=== PATIENT | female | born 1975 | race American Indian/Alaskan Native ===

== ENCOUNTER 2018-02-03 02:19 | Inpatient (IN) | payer OTHER ==
[2018-02-03] MEDS ORDERED: ZOFRAN ODT PO ONE (03:43)
[2018-02-03] MEDS ORDERED: ZOFRAN ODT ONE (03:44)
[2018-02-03 04:36] LABS: Bilirubin,Urine SM (Negative); Blood,Urine NEG (Negative); Color,Urine Amber (Yellow); Mucus,Urine 3+ /HPF
[2018-02-03 04:38] LABS: Hemoglobin 17.1 gm/dl (10.1-14.3)
[2018-02-03 04:39] LABS: Hematocrit 50.6 % (30.3-42.9); Mean Corpuscular HGB Conc 34 % (30-34); Mean Corpuscular Hemoglobin 29 pg (28-32); Mean Corpuscular Volume 84 fl (79-97); Mean Platelet Volume 7.3 fl (6-12); Platelet Count 334 K/mm3 (140-440); Red Cell Distribution Width 13.9 % (13.2-15.2)
[2018-02-03 04:42] LABS: Ictotest,Urine Negative (Negative)
[2018-02-03 05:04] LABS: Albumin 5.6 g/dL (3.9-5); BUN/Creatinine Ratio 19; Blood Urea Nitrogen 17 mg/dL (7-17); Calcium 11.5 mg/dL (8.4-10.2); Hemolysis Index 99; Lipase 16 units/L (13-60)
[2018-02-03 05:20] LABS: Alanine Aminotransferase 24 units/L (7-56)
[2018-02-03 05:22] LABS: Basophils % (Manual) 0 % (0.0-1.8); Eosinophils % (Manual) 0 % (0.0-4.3); RBC Morphology Normal; Total Cells Counted 100
[2018-02-03 05:23] LABS: Platelet Estimate Consistent w Auto
[2018-02-03] MEDS ORDERED: ZOFRAN IV ONE (07:20)
[2018-02-03] MEDS ORDERED: ZOFRAN ONE (07:21)
[2018-02-03] MEDS ORDERED: NACL 0.9% 1000 ML 1,000 ML ONE (07:35)
[2018-02-03] MEDS ORDERED: NACL 0.9% 1000 ML 1,000 ML IV ONE (07:36)
[2018-02-03] MEDS ORDERED: MORPHINE IV ONE ×2 (07:39→11:31)
--- NOTE | 2018-02-03 10:55 | Cat Scan Report ---
CT scan of abdomen and pelvis with IV contrast: History abdominal pain left lower quadrant pain severe pain. Findings: Normal lung bases. No pleural pericardial effusion. Normal liver, spleen and pancreas. Patient status post cholecystectomy. Common bile duct diameter 9 mm. Normal adrenals kidney parenchyma and bladder. No free intraperitoneal fluid or air. No evidence of adenopathy. Normal. There is supra-umbilical midline ventral hernia containing loops of small bowel with dilated multiple loops of small bowel within the abdomen. Normal colon. Impression: Incomplete small bowel obstruction probably related to ventral hernia.
--- NOTE | 2018-02-03 13:06 | Emergency Department Report ---
HPI - General Chief Complaint: Abdominal Pain Time Seen by Provider: 02/03/18 07:39 - HPI HPI: Patient is a 42-year-old -[place] female with history of cholecystectomy , partial hysterectomy, came to the ED with periumbilical area pain. She described the pain as sharp, 10 out of 10, radiating to both sides, without fever or chills or night sweats. She also complained of nausea and vomiting. She has not taking any medications for his symptoms. She denies having prior episode of such pain in the past. ED Past Medical Hx - Past Medical History Previous Medical History?: No Hx Hypertension: No - Surgical History Hx Cholecystectomy: Yes Additional Surgical History: Tubal Ligation and Partial Hysterectomy - Social History Smoking Status: Never Smoker - Medications Home Medications: Home Medications Medication Instructions Recorded Confirmed Last Taken Type No Known Home Medications [No 02/03/18 02/03/18 Unknown History Reported Home Medications] ED Review of Systems ROS: Stated complaint: ABD PAIN Other details as noted in HPI Comment: All other systems reviewed and negative Cardiovascular: denies: chest pain Endocrine: denies: no symptoms reported Gastrointestinal: abdominal pain, nausea, vomiting. denies: diarrhea, constipation Physical Exam - Physical Exam Vital Signs: Vital Signs 02/03/18 02/03/18 02/03/18 02:54 03:38 04:44 Temperature 97.7 F 97.7 F Pulse Rate 65 57 L Respiratory 18 20 Rate Blood Pressure 129/83 129/83 142/83 Blood Pressure [Left] O2 Sat by Pulse 100 100 100 Oximetry 02/03/18 02/03/18 02/03/18 04:50 06:00 07:19 Temperature 97.8 F Pulse Rate 54 L 62 Respiratory 17 16 Rate Blood Pressure 129/75 Blood Pressure 142/83 128/75 [Left] O2 Sat by Pulse 100 94 Oximetry 02/03/18 02/03/18 08:51 11:38 Temperature Pulse Rate 58 L Respiratory 14 18 Rate Blood Pressure Blood Pressure 110/58 104/64 [Left] O2 Sat by Pulse 98 98 Oximetry Physical Exam: - Physical Exam - General Limitations: No Limitations General appearance: alert, in no apparent distress, obese - Head Head exam: Present: atraumatic, normocephalic - Eye Eye exam: Present: normal appearance - ENT ENT exam: Present: mucous membranes moist - Neck Neck exam: Present: normal inspection - Respiratory Respiratory exam: Present: normal lung sounds bilaterally. Absent: respiratory distress - Cardiovascular Cardiovascular Exam: Present: normal rhythm. Absent: systolic murmur, diastolic murmur, rubs, gallop - GI/Abdominal GI/Abdominal exam: Present: soft, normal bowel sounds, does have a small umbilical hernia, has tenderness in periumbilical area, no rebound. - Extremities Exam Extremities exam: Present: normal inspection - Back Exam Back exam: Present: normal inspection - Neurological Exam Neurological exam: Present: alert, oriented X3 - Psychiatric Psychiatric exam: normal affect and mood - Skin Skin exam: Present: warm, dry, intact, normal color. Absent: rash ED Course Vital Signs 02/03/18 02/03/18 02/03/18 02:54 03:38 04:44 Temperature 97.7 F 97.7 F Pulse Rate 65 57 L Respiratory 18 20 Rate Blood Pressure 129/83 129/83 142/83 Blood Pressure [Left] O2 Sat by Pulse 100 100 100 Oximetry 02/03/18 02/03/18 02/03/18 04:50 06:00 07:19 Temperature 97.8 F Pulse Rate 54 L 62 Respiratory 17 16 Rate Blood Pressure 129/75 Blood Pressure 142/83 128/75 [Left] O2 Sat by Pulse 100 94 Oximetry 02/03/18 02/03/18 08:51 11:38 Temperature Pulse Rate 58 L Respiratory 14 18 Rate Blood Pressure Blood Pressure 110/58 104/64 [Left] O2 Sat by Pulse 98 98 Oximetry ED Medical Decision Making - Lab Data Result diagrams: 02/03/18 04:03 02/03/18 04:03 Critical care attestation.: If time is entered above; I have spent that time in minutes in the direct care of this critically ill patient, excluding procedure time. ED Disposition Clinical Impression: Small bowel obstruction Disposition: DC-09 OP ADMIT IP TO THIS HOSP Is pt being admited?: Yes Does the pt Need Aspirin: No Condition: Stable Instructions: Abdominal Pain (ED) Referrals: PRIMARY CARE, [Primary Care Provider] - 3-5 Days
--- NOTE | 2018-02-03 14:11 | History and Physical Report ---
History of Present Illness Chief complaint: My stomach hurts History of present illness: 42 YO Female with ventral hernia presents to ED for evaluation. Pt states that she has experienced pain in her abdomen. Pain is 10/10, periumbilical, radiates to both sides, and is associated with nausea. Pt seen and evaluated in ED and found to have evidence of bowel obstruction on CT scan. Surgical team consulted in ED. NGT placed. Pt admitted to medical floor. No reports of fever, chills, CP , Palpitations, BRBPR, Hematemesis, skin rash, recent ill contacts, ingestion of food/water from new or different sources. Past History Past Medical History: other (ventral hernia.) Past Surgical History: cholecystectomy, hysterectomy, Other (tubal ligation) Social history: Family history: hypertension Medications and Allergies Allergies Allergy/AdvReac Type Severity Reaction Status Date / Time No Known Allergies Allergy Verified 02/03/18 04:14 Home Medications Medication Instructions Recorded Confirmed Last Taken Type No Known Home Medications [No 02/03/18 02/03/18 Unknown History Reported Home Medications] Review of Systems Constitutional: no weight loss, no weight gain, no fever, no chills Ears, nose, mouth and throat: no ear pain, no ear discharge, no tinnitis, no decreased hearing, no nose pain, no nasal congestion Breasts: no change in shape, no swelling Cardiovascular: no chest pain, no orthopnea, no palpitations, no rapid/ irregular heart beat, no edema, no syncope Respiratory: no cough, no cough with sputum, no excessive sputum, no hemoptysis , no shortness of breath Gastrointestinal: abdominal pain, nausea, no vomiting, no diarrhea, no constipation, no BRBPR, no melena, no hematochezia, no early satiety Genitourinary Female: no pelvic pain, no flank pain, no menorrhagia, no dysuria , no urinary frequency, no urgency, no stress incontinence, no post void dribbling Menstruation: no premenarcheal, no post hysterectomy, no ammenorrhea, no ammenorrhea on BC, no period normal Rectal: no pain, no incontinence, no bleeding Musculoskeletal: no neck stiffness, no neck pain, no shooting arm pain, no arm numbness/tingling, no low back pain, no shooting leg pain Integumentary: no rash, no pruritis, no redness, no sores, no wounds, no jaundice Psychiatric: no anxiety, no memory loss, no change in sleep habits, no sleep disturbances, no insomnia, no hypersomnia, no change in appetite Endocrine: no cold intolerance, no heat intolerance, no polyphagia, no excessive thirst, no polydipsia, no polyuria Hematologic/Lymphatic: no easy bruising, no easy bleeding, no lymphadenopathy, no lymphedema Allergic/Immunologic: no urticaria, no allergic rhinitis, no wheezing Exam - Constitutional Vitals: Temp Pulse Resp BP Pulse Ox 97.8 F 60 16 136/84 97 02/03/18 04:50 02/03/18 13:08 02/03/18 13:08 02/03/18 13:08 02/03/18 13:08 General appearance: Absent: no acute distress, mild distress, severe distress - EENT Eyes: Absent: PERRL, EOM intact, irregular pupil ENT: no hearing intact, no clear oral mucosa, no dentition normal - Neck Neck: Absent: supple, normal ROM, rigidity - Respiratory Respiratory effort: normal - Cardiovascular Heart Sounds: Present: S1 & S2. Absent: rub, click - Extremities Extremities: pulses symmetrical, No edema Peripheral Pulses: within normal limits - Abdominal General gastrointestinal: Present: soft, non-tender, non-distended, normal bowel sounds Female genitourinary: Present: normal - Integumentary Integumentary: Present: clear, warm, dry - Musculoskeletal Musculoskeletal: gait normal, strength equal bilaterally - Psychiatric Psychiatric: appropriate mood/affect, intact judgment & insight - Neurologic Neurologic: CNII-XII intact, moves all extremities Results - Labs CBC & Chem 7: 02/03/18 04:03 02/03/18 04:03 Labs: Abnormal lab results 02/03/18 02/03/18 02/03/18 Range/Units 03:52 04:03 04:03 WBC 11.3 H (4.5-11.0) K/mm3 RBC 6.00 H (3.65-5.03) M/mm3 Hgb 17.1 H (10.1-14.3) gm/dl Hct 50.6 H (30.3-42.9) % Lymphocytes % (Manual) 8.0 L (13.4-35.0) % Seg Neutrophils # Man 10.3 H (1.8-7.7) K/mm3 Lymphocytes # (Manual) 0.9 L (1.2-5.4) K/mm3 Sodium 135 L (137-145) mmol/L Chloride 90.6 L (98-107) mmol/L Carbon Dioxide 20 L (22-30) mmol/L Glucose 170 H (65-100) mg/dL POC Glucose (70-105) Calcium 11.5 H (8.4-10.2) mg/dL Total Protein 8.9 H (6.3-8.2) g/dL Albumin 5.6 H (3.9-5) g/dL Ur Specific [place] 1.034 H (1.003-1.030) Urine WBC (Auto) 7.0 H (0.0-6.0) /HPF 02/03/18 Range/Units 07:37 WBC (4.5-11.0) K/mm3 RBC (3.65-5.03) M/mm3 Hgb (10.1-14.3) gm/dl Hct (30.3-42.9) % Lymphocytes % (Manual) (13.4-35.0) % Seg Neutrophils # Man (1.8-7.7) K/mm3 Lymphocytes # (Manual) (1.2-5.4) K/mm3 Sodium (137-145) mmol/L Chloride (98-107) mmol/L Carbon Dioxide (22-30) mmol/L Glucose (65-100) mg/dL POC Glucose 131 H (70-105) Calcium (8.4-10.2) mg/dL Total Protein (6.3-8.2) g/dL Albumin (3.9-5) g/dL Ur Specific [place] (1.003-1.030) Urine WBC (Auto) (0.0-6.0) /HPF Assessment and Plan - Patient Problems (1) Small bowel obstruction Current Visit: Yes Status: Acute Plan to address problem: Surgery consulted in ED, IVF resuscitation, bowel rest, pain control, CT abdomen pelvis, NGT to LWS, pain control (2) DVT prophylaxis Current Visit: Yes Status: Acute Plan to address problem: SCD to BLE while in bed.
[2018-02-03] MEDS ORDERED: PROVENTIL IH PRN (14:12)
[2018-02-03] MEDS ORDERED: TYLENOL PO PRN (14:12)
[2018-02-03] MEDS ORDERED: SODIUM CHLORIDE FLUSH SYRINGE 10 ML IV PRN (14:12)
[2018-02-03] MEDS: MORPHINE IV PRN ×2 (17:15→21:25)
[2018-02-03] MEDS: NACL 0.9% 1000 ML 1,000 ML IV SCH (18:40)
[2018-02-03] MEDS: SODIUM CHLORIDE FLUSH SYRINGE 10 ML IV SCH (21:26)
[2018-02-04] MEDS: NACL 0.9% 1000 ML 1,000 ML IV SCH ×3 (00:05→23:34)
--- NOTE | 2018-02-04 02:07 | Consultation ---
REASON FOR CONSULTATION: Rule out small-bowel obstruction. HISTORY OF PRESENT ILLNESS: The patient is a very pleasant 42-year-old female who presented to the Emergency Room with recent onset of abdominal pain accompanied by nausea and vomiting. She states her pain is moreso in the left lower quadrant. Does say she has had two bowel movements yesterday. PAST MEDICAL HISTORY: Negative. PAST SURGICAL HISTORY: Status post laparoscopic cholecystectomy, tubal ligation, and a hysterectomy. ALLERGIES: No known allergies. MEDICATIONS: No medications, she just takes vitamins. FAMILY HISTORY: Diabetes and hypertension. SOCIAL HISTORY: Occasional ethanol intake. Denies any smoking. REVIEW OF SYSTEMS: Noncontributory. PHYSICAL EXAMINATION: GENERAL: At this time reveals the patient to be awake, alert, and cooperative. NG tube is in place. No acute distress. VITAL SIGNS: Show her to be afebrile with a temperature 97.8, blood pressure is 136/84, pulse is 60, respirations 16. HEENT: Pupils are equal and reactive to light and accommodation. Sclerae are nonicteric. ABDOMEN: Examination of the abdomen reveals the abdomen to be minimally distended and essentially nontender at present. There is tenderness; however, when I palpated the subxiphoid area where a palpable hernia is noted some in the midpoint between the xiphoid and the umbilicus. This does not appear to be at the trocar site. It appears to be a true ventral hernia. Bowel sounds are present. There is no rebound or guarding throughout. LABORATORY DATA: All lab work at present includes a CBC, which shows a white count of 11.3, H and H is 17 and 50. Electrolytes are 2. Electrolytes show low sodium of 135 and low chloride of 90.6. Potassium is 4.5. Glucose is 170. LFTs are essentially normal with a total bilirubin of 0.9, AST is 33, ALT is 24, alkaline phosphatase is 51. A CT scan was done, which I have reviewed with Dr. Rodriguez, the radiologist. CT does show small hernia at the site of my palpation. However, this area does not appear to be a source of any incarceration or obstruction. Dilated small bowel loops are noted, proximal and distal to this area. There might be some incarcerated omentum in the area, but again not the source of obstruction. There is some air noted in the colon. Impression of the CT is that of an incomplete small-bowel obstruction. The official report states it is probably related to ventral hernia, but now after review with Dr. Rodriguez, he agrees probably the ventral hernia is not the site of obstruction. Most likely distal adhesions from previous ELECT[employer]CH[employer] surgery. IMPRESSION: At this time is as above. RECOMMENDATIONS: Recommend to admit the patient. I keep her nothing per mouth, on NG suction and intravenous fluid hydration. We will repeat CBC, amylase, and abdominal series in the morning. We will follow with you. Thank you very much for consultation. JOB# [id number] FP/NTS
[2018-02-04 07:38] LABS: Basophils % (Auto) 0.3 % (0.0-1.8); Eosinophils % (Auto) 0.2 % (0.0-4.3); Hematocrit 42.2 % (30.3-42.9); Hemoglobin 13.8 gm/dl (10.1-14.3); Lymphocytes # (Auto) 1.7 K/mm3 (1.2-5.4); Lymphocytes % (Auto) 19.4 % (13.4-35.0); Mean Corpuscular HGB Conc 33 % (30-34); Mean Corpuscular Hemoglobin 28 pg (28-32); Mean Corpuscular Volume 87 fl (79-97); Monocytes # (Auto) 0.9 K/mm3 (0.0-0.8); Monocytes % (Auto) 10.7 % (0.0-7.3); Platelet Count 256 K/mm3 (140-440); Red Blood Count 4.88 M/mm3 (3.65-5.03); Red Cell Distribution Width 13.9 % (13.2-15.2)
[2018-02-04 07:59] LABS: Alanine Aminotransferase 16 units/L (7-56); Albumin 3.9 g/dL (3.9-5); BUN/Creatinine Ratio 28; Blood Urea Nitrogen 17 mg/dL (7-17); Calcium 8.5 mg/dL (8.4-10.2); Hemolysis Index 1
[2018-02-04] MEDS: MORPHINE IV PRN ×4 (08:51→23:41)
--- NOTE | 2018-02-04 11:55 | Progress Note ---
Assessment and Plan Assessment and plan: Ms. Orellana is a 42 yo woman with a history of ventral hernia who pw severe abd pains/n/v, admitted for sbo. -Suspected SBO: continue ngt, Gen. Surgeon, Dr. Rios is aware. Empiric treat with iv zosyn -Ventral hernia: keep npo, surgery to evaluate -Acidosis: check lactate level -Hyperglycemia, not known to have DM, ?stress related: check a1c -Hyponatremia, dehydration: treat with ivf -Leukocytosis, wbc 11.3, ?reactive: repeat in am -DVT prophylaxis: add sq heparing -GI prophylaxis: added iv protonix -Nutrition: npo for now, check a1c prior to adding d5 solution full code History Interval history: Patient was seen and examined. Follow-up on current diagnosis of abd pains still present. Overnight uneventful. Patient denies any chest pain, shortness breath or severe headaches. Imaging, nursing note, chart, labs and old chart reviewed. Discussed with patient. Hospitalist Physical - Physical exam Narrative exam: GEN: thin, ill appearing NAD, Awake, Alert, Orientated x 3 HEENT: NCAT, EOMI, PERRL, OP with ngt NECK: supple, no adenopathy, no thyromegaly, no JVD CVS/HEART: RRR, normal S1S2, pulses present bilaterally CHEST/LUNGS: CTA B, Symmetrical chest expansion, good air entry bilaterally GI/Abdomen: soft, epigastric tenderness with guarding good bowel sounds, no rebound /Bladder: no suprapubic tenderness, no CVA or paraspinal tenderness EXT/Skin: no c/c/e, no obvious rash MSK: FROM x 4 Neuro: CN 2-12 grossly intact, no new focal deficits Psych: anxious - Constitutional Vitals: Temp Pulse Resp BP Pulse Ox 98.8 F 64 20 129/71 100 02/04/18 07:21 02/04/18 07:21 02/04/18 07:21 02/04/18 07:21 02/04/18 07:21 General appearance: Absent: no acute distress, mild distress, severe distress Results - Labs CBC & Chem 7: 02/04/18 06:42 02/04/18 06:42 Labs: Laboratory Last Values WBC 8.7 K/mm3 (4.5-11.0) 02/04/18 06:42 RBC 4.88 M/mm3 (3.65-5.03) 02/04/18 06:42 Hgb 13.8 gm/dl (10.1-14.3) D 02/04/18 06:42 Hct 42.2 % (30.3-42.9) D 02/04/18 06:42 MCV 87 fl (79-97) 02/04/18 06:42 MCH 28 pg (28-32) 02/04/18 06:42 MCHC 33 % (30-34) 02/04/18 06:42 RDW 13.9 % (13.2-15.2) 02/04/18 06:42 Plt Count 256 K/mm3 (140-440) 02/04/18 06:42 Lymph % (Auto) 19.4 % (13.4-35.0) 02/04/18 06:42 [place] % (Auto) 10.7 % (0.0-7.3) H 02/04/18 06:42 Eos % (Auto) 0.2 % (0.0-4.3) 02/04/18 06:42 Baso % (Auto) 0.3 % (0.0-1.8) 02/04/18 06:42 Lymph # 1.7 K/mm3 (1.2-5.4) 02/04/18 06:42 [place] # 0.9 K/mm3 (0.0-0.8) H 02/04/18 06:42 Eos # 0.0 K/mm3 (0.0-0.4) 02/04/18 06:42 Baso # 0.0 K/mm3 (0.0-0.1) 02/04/18 06:42 Add Manual Diff Complete 02/03/18 04:03 Total Counted 100 02/03/18 04:03 Seg Neutrophils % 69.4 % (40.0-70.0) 02/04/18 06:42 Band Neutrophils % 0 % 02/03/18 04:03 Lymphocytes % (Manual) 8.0 % (13.4-35.0) L 02/03/18 04:03 Reactive Lymphs % (Man) 0 % 02/03/18 04:03 Monocytes % (Manual) 1.0 % (0.0-7.3) 02/03/18 04:03 Eosinophils % (Manual) 0 % (0.0-4.3) 02/03/18 04:03 Basophils % (Manual) 0 % (0.0-1.8) 02/03/18 04:03 Metamyelocytes % 0 % 02/03/18 04:03 Myelocytes % 0 % 02/03/18 04:03 Promyelocytes % 0 % 02/03/18 04:03 Blast Cells % 0 % 02/03/18 04:03 Nucleated RBC % Not Reportable 02/03/18 04:03 Seg Neutrophils # 6.0 K/mm3 (1.8-7.7) 02/04/18 06:42 Seg Neutrophils # Man 10.3 K/mm3 (1.8-7.7) H 02/03/18 04:03 Band Neutrophils # 0.0 K/mm3 02/03/18 04:03 Lymphocytes # (Manual) 0.9 K/mm3 (1.2-5.4) L 02/03/18 04:03 Abs React Lymphs (Man) 0.0 K/mm3 02/03/18 04:03 Monocytes # (Manual) 0.1 K/mm3 (0.0-0.8) 02/03/18 04:03 Eosinophils # (Manual) 0.0 K/mm3 (0.0-0.4) 02/03/18 04:03 Basophils # (Manual) 0.0 K/mm3 (0.0-0.1) 02/03/18 04:03 Metamyelocytes # 0.0 K/mm3 02/03/18 04:03 Myelocytes # 0.0 K/mm3 02/03/18 04:03 Promyelocytes # 0.0 K/mm3 02/03/18 04:03 Blast Cells # 0.0 K/mm3 02/03/18 04:03 WBC Morphology Not Reportable 02/03/18 04:03 Hypersegmented Neuts Not Reportable 02/03/18 04:03 Hyposegmented Neuts Not Reportable 02/03/18 04:03 Hypogranular Neuts Not Reportable 02/03/18 04:03 Smudge Cells Not Reportable 02/03/18 04:03 Toxic Granulation Not Reportable 02/03/18 04:03 Toxic Vacuolation Not Reportable 02/03/18 04:03 Dohle Bodies Not Reportable 02/03/18 04:03 Pelger-Huet Anomaly Not Reportable 02/03/18 04:03 Natasha Rods Not Reportable 02/03/18 04:03 Platelet Estimate Consistent w auto 02/03/18 04:03 Clumped Platelets Not Reportable 02/03/18 04:03 Plt Clumps, EDTA Not Reportable 02/03/18 04:03 Large Platelets Not Reportable 02/03/18 04:03 Giant Platelets Not Reportable 02/03/18 04:03 Platelet Satelliting Not Reportable 02/03/18 04:03 Plt Morphology Comment Not Reportable 02/03/18 04:03 RBC Morphology Normal 02/03/18 04:03 Dimorphic RBCs Not Reportable 02/03/18 04:03 Polychromasia Not Reportable 02/03/18 04:03 Hypochromasia Not Reportable 02/03/18 04:03 Poikilocytosis Not Reportable 02/03/18 04:03 Anisocytosis Not Reportable 02/03/18 04:03 Microcytosis Not Reportable 02/03/18 04:03 Macrocytosis Not Reportable 02/03/18 04:03 Spherocytes Not Reportable 02/03/18 04:03 Pappenheimer Bodies Not Reportable 02/03/18 04:03 Sickle Cells Not Reportable 02/03/18 04:03 Target Cells Not Reportable 02/03/18 04:03 Tear Drop Cells Not Reportable 02/03/18 04:03 Ovalocytes Not Reportable 02/03/18 04:03 Helmet Cells Not Reportable 02/03/18 04:03 Perez-Buhl Bodies Not Reportable 02/03/18 04:03 [place] Rings Not Reportable 02/03/18 04:03 [place] Cells Not Reportable 02/03/18 04:03 Bite Cells Not Reportable 02/03/18 04:03 Crenated Cell Not Reportable 02/03/18 04:03 Elliptocytes Not Reportable 02/03/18 04:03 Acanthocytes (Spur) Not Reportable 02/03/18 04:03 Rouleaux Not Reportable 02/03/18 04:03 Hemoglobin C Crystals Not Reportable 02/03/18 04:03 Schistocytes Not Reportable 02/03/18 04:03 Malaria parasites Not Reportable 02/03/18 04:03 Jaun Bodies Not Reportable 02/03/18 04:03 Hem Pathologist Commnt No 02/03/18 04:03 Sodium 142 mmol/L (137-145) D 02/04/18 06:42 Potassium 4.1 mmol/L (3.6-5.0) 02/04/18 06:42 Chloride 105.9 mmol/L (98-107) 02/04/18 06:42 Carbon Dioxide 24 mmol/L (22-30) 02/04/18 06:42 Anion Gap 16 mmol/L 02/04/18 06:42 BUN 17 mg/dL (7-17) 02/04/18 06:42 Creatinine 0.6 mg/dL (0.7-1.2) L 02/04/18 06:42 Estimated GFR > 60 ml/min 02/04/18 06:42 BUN/Creatinine Ratio 28 % 02/04/18 06:42 Glucose 89 mg/dL (65-100) 02/04/18 06:42 POC Glucose 131 (70-105) H 02/03/18 07:37 Calcium 8.5 mg/dL (8.4-10.2) D 02/04/18 06:42 Total Bilirubin 0.70 mg/dL (0.1-1.2) 02/04/18 06:42 AST 20 units/L (5-40) 02/04/18 06:42 ALT 16 units/L (7-56) 02/04/18 06:42 Alkaline Phosphatase 40 units/L (35-129) 02/04/18 06:42 Total Protein 6.7 g/dL (6.3-8.2) D 02/04/18 06:42 Albumin 3.9 g/dL (3.9-5) 02/04/18 06:42 Albumin/Globulin Ratio 1.4 % 02/04/18 06:42 Lipase 16 units/L (13-60) 02/03/18 04:03 Urine Color [place] (Yellow) 02/03/18 03:52 Urine Turbidity Clear (Clear) 02/03/18 03:52 Urine pH 5.0 (5.0-7.0) 02/03/18 03:52 Ur Specific [place] 1.034 (1.003-1.030) H 02/03/18 03:52 Urine Protein 100 mg/dl mg/dL (Negative) 02/03/18 03:52 Urine Glucose (UA) 50 mg/dL (Negative) 02/03/18 03:52 Urine Ketones 80 mg/dL (Negative) 02/03/18 03:52 Urine Blood Neg (Negative) 02/03/18 03:52 Urine Nitrite Neg (Negative) 02/03/18 03:52 Urine Bilirubin Sm (Negative) 02/03/18 03:52 Urine Ictotest Negative (Negative) 02/03/18 03:52 Urine Urobilinogen 2.0 mg/dL (<2.0) 02/03/18 03:52 Ur Leukocyte Esterase Neg (Negative) 02/03/18 03:52 Urine WBC (Auto) 7.0 /HPF (0.0-6.0) H 02/03/18 03:52 Urine RBC (Auto) 3.0 /HPF (0.0-6.0) 02/03/18 03:52 U Epithel Cells (Auto) 13.0 /HPF (0-13.0) 02/03/18 03:52 Urine Mucus 3+ /HPF 02/03/18 03:52
[2018-02-04] MEDS: SODIUM CHLORIDE FLUSH SYRINGE 10 ML IV SCH ×2 (13:10→23:42)
[2018-02-04] MEDS ORDERED: ZOSYN/NS 4.5GM/100ML 4.5 GM/100 ML VIAL IV SCH (14:00)
--- NOTE | 2018-02-04 14:14 | XRay Report ---
ABDOMINAL SERIES: History: Abdominal pain, small bowel obstruction. Compared to the CT of abdomen and pelvis with contrast performed 02/03/18. Single view of the chest is unremarkable. A nasogastric tube has been inserted which terminates in the fundus of the stomach. Multiple mildly dilated loops of small bowel with air-fluid levels have improved slightly or are unchanged. There is a small amount of gas identified in the colon and rectum. No free air is appreciated. Cholecystectomy changes are noted. IMPRESSION: Minimal improvement in the small bowel obstruction pattern is suspected.
--- NOTE | 2018-02-04 14:20 | Progress Note ---
Assessment and Plan Pt status quo. 400 cc from NG Abd exam slighly improved. little less distention. -BS Abd series this am - minimal improvement. some gas noted in colon imp - partial sbo minimal improvement begin mineral oil per ng f/u abd series in am Selected Entries 02/04/18 07:21 Temperature 98.8 F Pulse Rate 64 Respiratory 20 Rate Blood Pressure 129/71 Laboratory Tests 02/03/18 02/03/18 02/04/18 04:03 04:03 06:42 WBC 11.3 H 8.7 Hgb 13.8 D Hct 42.2 D Sodium Potassium Chloride Carbon Dioxide BUN Creatinine Lipase 16 02/04/18 06:42 WBC Hgb Hct Sodium 142 D Potassium 4.1 Chloride 105.9 Carbon Dioxide 24 BUN 17 Creatinine 0.6 L Lipase Objective Vital Signs - 12hr 02/04/18 02/04/18 07:21 11:30 Temperature 98.8 F 98.2 F Pulse Rate 64 53 L Respiratory 20 20 Rate Blood Pressure 129/71 132/85 O2 Sat by Pulse 100 100 Oximetry - Labs 02/04/18 06:42 02/04/18 06:42 Diabetes panel 02/04/18 Range/Units 06:42 Sodium 142 D (137-145) mmol/L Potassium 4.1 (3.6-5.0) mmol/L Chloride 105.9 (98-107) mmol/L Carbon Dioxide 24 (22-30) mmol/L BUN 17 (7-17) mg/dL Creatinine 0.6 L (0.7-1.2) mg/dL Glucose 89 (65-100) mg/dL Calcium 8.5 D (8.4-10.2) mg/dL AST 20 (5-40) units/L ALT 16 (7-56) units/L Alkaline Phosphatase 40 (35-129) units/L Total Protein 6.7 D (6.3-8.2) g/dL Albumin 3.9 (3.9-5) g/dL Calcium panel 02/04/18 Range/Units 06:42 Calcium 8.5 D (8.4-10.2) mg/dL Albumin 3.9 (3.9-5) g/dL Pituitary panel 02/04/18 Range/Units 06:42 Sodium 142 D (137-145) mmol/L Potassium 4.1 (3.6-5.0) mmol/L Chloride 105.9 (98-107) mmol/L Carbon Dioxide 24 (22-30) mmol/L BUN 17 (7-17) mg/dL Creatinine 0.6 L (0.7-1.2) mg/dL Glucose 89 (65-100) mg/dL Calcium 8.5 D (8.4-10.2) mg/dL Adrenal panel 02/04/18 Range/Units 06:42 Sodium 142 D (137-145) mmol/L Potassium 4.1 (3.6-5.0) mmol/L Chloride 105.9 (98-107) mmol/L Carbon Dioxide 24 (22-30) mmol/L BUN 17 (7-17) mg/dL Creatinine 0.6 L (0.7-1.2) mg/dL Glucose 89 (65-100) mg/dL Calcium 8.5 D (8.4-10.2) mg/dL Total Bilirubin 0.70 (0.1-1.2) mg/dL AST 20 (5-40) units/L ALT 16 (7-56) units/L Alkaline Phosphatase 40 (35-129) units/L Total Protein 6.7 D (6.3-8.2) g/dL Albumin 3.9 (3.9-5) g/dL
[2018-02-04] MEDS: PROTONIX IV SCH (16:20)
[2018-02-04] MEDS: CEPACOL X STRENGTH MM PRN (18:34)
[2018-02-04] MEDS: MINERAL OIL PO SCH ×2 (18:56→23:33)
[2018-02-04] MEDS: ZOFRAN IV PRN (23:40)
[2018-02-05] MEDS: MINERAL OIL PO SCH ×6 (02:30→22:26)
[2018-02-05] MEDS: MORPHINE IV PRN ×5 (05:13→23:13)
[2018-02-05] MEDS: CEPACOL X STRENGTH MM PRN ×2 (05:16→15:33)
[2018-02-05 07:08] LABS: Hematocrit 40.2 % (30.3-42.9); Hemoglobin 13.1 gm/dl (10.1-14.3); Mean Corpuscular HGB Conc 33 % (30-34); Mean Corpuscular Hemoglobin 28 pg (28-32); Mean Corpuscular Volume 87 fl (79-97); Platelet Count 233 K/mm3 (140-440); Red Blood Count 4.65 M/mm3 (3.65-5.03); Red Cell Distribution Width 13.7 % (13.2-15.2)
[2018-02-05 07:30] LABS: BUN/Creatinine Ratio 28; Blood Urea Nitrogen 17 mg/dL (7-17); Calcium 8.3 mg/dL (8.4-10.2); Hemolysis Index 1
[2018-02-05] MEDS: NACL 0.9% 1000 ML 1,000 ML IV SCH ×3 (07:46→23:18)
[2018-02-05] MEDS: PROTONIX IV SCH (09:15)
--- NOTE | 2018-02-05 09:26 | XRay Report ---
ABDOMINAL SERIES: History: Followup small bowel obstruction. The nasogastric tube remains in the same position terminating in the proximal stomach. Perhaps minimal improvement is noted in a partial small bowel obstruction pattern since 02/04/18. There is trace gas in the colon and rectum. No free air or pathologic calcifications. Single view of the chest remains unremarkable. IMPRESSION: Minimal improvement in the small bowel obstruction pattern.
[2018-02-05] MEDS: SODIUM CHLORIDE FLUSH SYRINGE 10 ML IV SCH ×2 (09:31→23:18)
--- NOTE | 2018-02-05 10:50 | Progress Note ---
Assessment and Plan Assessment and plan: -Small bowel obstruction. continue ngt, Gen. Surgeon, Dr. Rios following. Empiric treatment with iv zosyn -Ventral hernia: keep npo per surgery -Hyperglycemia, not known to have DM, ?stress related: check a1c -Hyponatremia, dehydration: treat with ivf -Leukocytosis, resolved -DVT prophylaxis: Continue sq heparin -GI prophylaxis: Continue protonix -Nutrition: npo for now, check a1c prior to adding d5 solution full code History Interval history: Patient complains that she has not eaten. She states that her abdominal pain is improved. Hospitalist Physical - Constitutional Vitals: Temp Pulse Resp BP Pulse Ox 98.8 F 65 18 126/75 100 02/05/18 09:28 02/05/18 09:28 02/05/18 09:36 02/05/18 09:36 02/05/18 10:00 General appearance: Absent: no acute distress, mild distress, severe distress - EENT Eyes: Present: PERRL, EOM intact ENT: hearing intact, clear oral mucosa, dentition normal - Neck Neck: Present: supple, normal ROM - Respiratory Respiratory effort: normal Respiratory: bilateral: CTA - Cardiovascular Rhythm: regular Heart Sounds: Present: S1 & S2. Absent: gallop, rub - Extremities Extremities: no ischemia, No edema, Full ROM - Abdominal General gastrointestinal: soft, non-tender, non-distended, normal bowel sounds - Integumentary Integumentary: Present: clear, warm, dry - Neurologic Neurologic: CNII-XII intact, moves all extremities Results - Labs CBC & Chem 7: 02/05/18 06:11 02/05/18 06:11 Labs: Laboratory Last Values WBC 9.3 K/mm3 (4.5-11.0) 02/05/18 06:11 RBC 4.65 M/mm3 (3.65-5.03) 02/05/18 06:11 Hgb 13.1 gm/dl (10.1-14.3) 02/05/18 06:11 Hct 40.2 % (30.3-42.9) 02/05/18 06:11 MCV 87 fl (79-97) 02/05/18 06:11 MCH 28 pg (28-32) 02/05/18 06:11 MCHC 33 % (30-34) 02/05/18 06:11 RDW 13.7 % (13.2-15.2) 02/05/18 06:11 Plt Count 233 K/mm3 (140-440) 02/05/18 06:11 Lymph % (Auto) 19.4 % (13.4-35.0) 02/04/18 06:42 [place] % (Auto) 10.7 % (0.0-7.3) H 02/04/18 06:42 Eos % (Auto) 0.2 % (0.0-4.3) 02/04/18 06:42 Baso % (Auto) 0.3 % (0.0-1.8) 02/04/18 06:42 Lymph # 1.7 K/mm3 (1.2-5.4) 02/04/18 06:42 [place] # 0.9 K/mm3 (0.0-0.8) H 02/04/18 06:42 Eos # 0.0 K/mm3 (0.0-0.4) 02/04/18 06:42 Baso # 0.0 K/mm3 (0.0-0.1) 02/04/18 06:42 Add Manual Diff Complete 02/03/18 04:03 Total Counted 100 02/03/18 04:03 Seg Neutrophils % 69.4 % (40.0-70.0) 02/04/18 06:42 Band Neutrophils % 0 % 02/03/18 04:03 Lymphocytes % (Manual) 8.0 % (13.4-35.0) L 02/03/18 04:03 Reactive Lymphs % (Man) 0 % 02/03/18 04:03 Monocytes % (Manual) 1.0 % (0.0-7.3) 02/03/18 04:03 Eosinophils % (Manual) 0 % (0.0-4.3) 02/03/18 04:03 Basophils % (Manual) 0 % (0.0-1.8) 02/03/18 04:03 Metamyelocytes % 0 % 02/03/18 04:03 Myelocytes % 0 % 02/03/18 04:03 Promyelocytes % 0 % 02/03/18 04:03 Blast Cells % 0 % 02/03/18 04:03 Nucleated RBC % Not Reportable 02/03/18 04:03 Seg Neutrophils # 6.0 K/mm3 (1.8-7.7) 02/04/18 06:42 Seg Neutrophils # Man 10.3 K/mm3 (1.8-7.7) H 02/03/18 04:03 Band Neutrophils # 0.0 K/mm3 02/03/18 04:03 Lymphocytes # (Manual) 0.9 K/mm3 (1.2-5.4) L 02/03/18 04:03 Abs React Lymphs (Man) 0.0 K/mm3 02/03/18 04:03 Monocytes # (Manual) 0.1 K/mm3 (0.0-0.8) 02/03/18 04:03 Eosinophils # (Manual) 0.0 K/mm3 (0.0-0.4) 02/03/18 04:03 Basophils # (Manual) 0.0 K/mm3 (0.0-0.1) 02/03/18 04:03 Metamyelocytes # 0.0 K/mm3 02/03/18 04:03 Myelocytes # 0.0 K/mm3 02/03/18 04:03 Promyelocytes # 0.0 K/mm3 02/03/18 04:03 Blast Cells # 0.0 K/mm3 02/03/18 04:03 WBC Morphology Not Reportable 02/03/18 04:03 Hypersegmented Neuts Not Reportable 02/03/18 04:03 Hyposegmented Neuts Not Reportable 02/03/18 04:03 Hypogranular Neuts Not Reportable 02/03/18 04:03 Smudge Cells Not Reportable 02/03/18 04:03 Toxic Granulation Not Reportable 02/03/18 04:03 Toxic Vacuolation Not Reportable 02/03/18 04:03 Dohle Bodies Not Reportable 02/03/18 04:03 Pelger-Huet Anomaly Not Reportable 02/03/18 04:03 Natasha Rods Not Reportable 02/03/18 04:03 Platelet Estimate Consistent w auto 02/03/18 04:03 Clumped Platelets Not Reportable 02/03/18 04:03 Plt Clumps, EDTA Not Reportable 02/03/18 04:03 Large Platelets Not Reportable 02/03/18 04:03 Giant Platelets Not Reportable 02/03/18 04:03 Platelet Satelliting Not Reportable 02/03/18 04:03 Plt Morphology Comment Not Reportable 02/03/18 04:03 RBC Morphology Normal 02/03/18 04:03 Dimorphic RBCs Not Reportable 02/03/18 04:03 Polychromasia Not Reportable 02/03/18 04:03 Hypochromasia Not Reportable 02/03/18 04:03 Poikilocytosis Not Reportable 02/03/18 04:03 Anisocytosis Not Reportable 02/03/18 04:03 Microcytosis Not Reportable 02/03/18 04:03 Macrocytosis Not Reportable 02/03/18 04:03 Spherocytes Not Reportable 02/03/18 04:03 Pappenheimer Bodies Not Reportable 02/03/18 04:03 Sickle Cells Not Reportable 02/03/18 04:03 Target Cells Not Reportable 02/03/18 04:03 Tear Drop Cells Not Reportable 02/03/18 04:03 Ovalocytes Not Reportable 02/03/18 04:03 Helmet Cells Not Reportable 02/03/18 04:03 Perez-[place] Bodies Not Reportable 02/03/18 04:03 [place] Rings Not Reportable 02/03/18 04:03 Aminata Cells Not Reportable 02/03/18 04:03 Bite Cells Not Reportable 02/03/18 04:03 Crenated Cell Not Reportable 02/03/18 04:03 Elliptocytes Not Reportable 02/03/18 04:03 Acanthocytes (Spur) Not Reportable 02/03/18 04:03 Rouleaux Not Reportable 02/03/18 04:03 Hemoglobin C Crystals Not Reportable 02/03/18 04:03 Schistocytes Not Reportable 02/03/18 04:03 Malaria parasites Not Reportable 02/03/18 04:03 Jaun Bodies Not Reportable 02/03/18 04:03 Hem Pathologist Commnt No 02/03/18 04:03 Sodium 144 mmol/L (137-145) 02/05/18 06:11 Potassium 3.9 mmol/L (3.6-5.0) 02/05/18 06:11 Chloride 106.4 mmol/L (98-107) 02/05/18 06:11 Carbon Dioxide 24 mmol/L (22-30) 02/05/18 06:11 Anion Gap 18 mmol/L 02/05/18 06:11 BUN 17 mg/dL (7-17) 02/05/18 06:11 Creatinine 0.6 mg/dL (0.7-1.2) L 02/05/18 06:11 Estimated GFR > 60 ml/min 02/05/18 06:11 BUN/Creatinine Ratio 28 % 02/05/18 06:11 Glucose 92 mg/dL (65-100) 02/05/18 06:11 POC Glucose 131 (70-105) H 02/03/18 07:37 Hemoglobin A1c 5.6 % (4-6) 02/05/18 06:11 Lactic Acid 1.60 mmol/L (0.7-2.0) 02/04/18 15:13 Calcium 8.3 mg/dL (8.4-10.2) L 02/05/18 06:11 Total Bilirubin 0.70 mg/dL (0.1-1.2) 02/04/18 06:42 AST 20 units/L (5-40) 02/04/18 06:42 ALT 16 units/L (7-56) 02/04/18 06:42 Alkaline Phosphatase 40 units/L (35-129) 02/04/18 06:42 Total Protein 6.7 g/dL (6.3-8.2) D 02/04/18 06:42 Albumin 3.9 g/dL (3.9-5) 02/04/18 06:42 Albumin/Globulin Ratio 1.4 % 02/04/18 06:42 Amylase 50 units/L (27-131) 02/05/18 06:11 Lipase 16 units/L (13-60) 02/03/18 04:03 Urine Color [place] (Yellow) 02/03/18 03:52 Urine Turbidity Clear (Clear) 02/03/18 03:52 Urine pH 5.0 (5.0-7.0) 02/03/18 03:52 Ur Specific [place] 1.034 (1.003-1.030) H 02/03/18 03:52 Urine Protein 100 mg/dl mg/dL (Negative) 02/03/18 03:52 Urine Glucose (UA) 50 mg/dL (Negative) 02/03/18 03:52 Urine Ketones 80 mg/dL (Negative) 02/03/18 03:52 Urine Blood Neg (Negative) 02/03/18 03:52 Urine Nitrite Neg (Negative) 02/03/18 03:52 Urine Bilirubin Sm (Negative) 02/03/18 03:52 Urine Ictotest Negative (Negative) 02/03/18 03:52 Urine Urobilinogen 2.0 mg/dL (<2.0) 02/03/18 03:52 Ur Leukocyte Esterase Neg (Negative) 02/03/18 03:52 Urine WBC (Auto) 7.0 /HPF (0.0-6.0) H 02/03/18 03:52 Urine RBC (Auto) 3.0 /HPF (0.0-6.0) 02/03/18 03:52 U Epithel Cells (Auto) 13.0 /HPF (0-13.0) 02/03/18 03:52 Urine Mucus 3+ /HPF 02/03/18 03:52
[2018-02-05] MEDS: HEPARIN SUB-Q SCH ×2 (12:53→22:35)
--- NOTE | 2018-02-05 19:27 | Progress Note ---
Assessment and Plan Pt status quo. neg flatus or BM NG 400 cc Abd exam unchanged -BS Abd series - minimal improvement. imp. non resolving partial SBO will proceed with expl lap in am proc, risks and compl reviewed consent signed Selected Entries 02/05/18 02/05/18 15:55 16:11 Temperature 98.7 F Pulse Rate 80 Respiratory 18 Rate Blood Pressure 110/91 [Left] Laboratory Tests 02/05/18 06:11 WBC 9.3 Hgb 13.1 Hct 40.2 Objective Vital Signs - 12hr 02/05/18 02/05/18 02/05/18 09:28 09:36 10:00 Temperature 98.8 F Pulse Rate 65 Respiratory 18 18 Rate Blood Pressure 126/75 [Left] O2 Sat by Pulse 100 100 100 Oximetry 02/05/18 02/05/18 15:55 16:11 Temperature 98.7 F 98.7 F Pulse Rate 80 Respiratory 18 Rate Blood Pressure 110/91 [Left] O2 Sat by Pulse Oximetry - Labs 02/05/18 06:11 02/05/18 06:11 Diabetes panel 02/05/18 02/05/18 Range/Units 06:11 06:11 Sodium 144 (137-145) mmol/L Potassium 3.9 (3.6-5.0) mmol/L Chloride 106.4 (98-107) mmol/L Carbon Dioxide 24 (22-30) mmol/L BUN 17 (7-17) mg/dL Creatinine 0.6 L (0.7-1.2) mg/dL Glucose 92 (65-100) mg/dL Hemoglobin A1c 5.6 (4-6) % Calcium 8.3 L (8.4-10.2) mg/dL Calcium panel 02/05/18 Range/Units 06:11 Calcium 8.3 L (8.4-10.2) mg/dL Pituitary panel 02/05/18 Range/Units 06:11 Sodium 144 (137-145) mmol/L Potassium 3.9 (3.6-5.0) mmol/L Chloride 106.4 (98-107) mmol/L Carbon Dioxide 24 (22-30) mmol/L BUN 17 (7-17) mg/dL Creatinine 0.6 L (0.7-1.2) mg/dL Glucose 92 (65-100) mg/dL Calcium 8.3 L (8.4-10.2) mg/dL Adrenal panel 02/05/18 Range/Units 06:11 Sodium 144 (137-145) mmol/L Potassium 3.9 (3.6-5.0) mmol/L Chloride 106.4 (98-107) mmol/L Carbon Dioxide 24 (22-30) mmol/L BUN 17 (7-17) mg/dL Creatinine 0.6 L (0.7-1.2) mg/dL Glucose 92 (65-100) mg/dL Calcium 8.3 L (8.4-10.2) mg/dL
[2018-02-06 01:45] LABS: Bilirubin,Urine NEG (Negative); Blood,Urine SM (Negative); Color,Urine Yellow (Yellow); Mucus,Urine 3+ /HPF; Urobilinogen,Urine < 2.0 mg/dL (<2.0)
[2018-02-06] MEDS: MORPHINE IV PRN ×4 (02:59→20:20)
[2018-02-06] MEDS: MINERAL OIL PO SCH ×5 (02:59→17:29)
[2018-02-06] MEDS: ZOFRAN IV PRN ×2 (03:04→06:04)
[2018-02-06] MEDS ORDERED: ANCEF/STERILE WATER 2 GM/20 ML 2 GM/20 ML SYRINGE IV SCH (06:00)
[2018-02-06 09:16] LABS: Basophils % (Auto) 0.4 % (0.0-1.8); Eosinophils % (Auto) 0.3 % (0.0-4.3); Hematocrit 37.6 % (30.3-42.9); Hemoglobin 12.2 gm/dl (10.1-14.3); Lymphocytes # (Auto) 1.3 K/mm3 (1.2-5.4); Lymphocytes % (Auto) 16.1 % (13.4-35.0); Mean Corpuscular HGB Conc 33 % (30-34); Mean Corpuscular Hemoglobin 28 pg (28-32); Mean Corpuscular Volume 87 fl (79-97); Monocytes # (Auto) 0.9 K/mm3 (0.0-0.8); Monocytes % (Auto) 11.2 % (0.0-7.3); Platelet Count 224 K/mm3 (140-440); Red Blood Count 4.33 M/mm3 (3.65-5.03); Red Cell Distribution Width 13.5 % (13.2-15.2)
[2018-02-06 09:26] LABS: BUN/Creatinine Ratio 33; Blood Urea Nitrogen 13 mg/dL (7-17); Hemolysis Index 5
--- NOTE | 2018-02-06 09:45 | Progress Note ---
Assessment and Plan Assessment and plan: -Small bowel obstruction. continue ngt, Gen. Surgeon, Dr. Rios following. Plans are for exploratory laparoscopy this morning. Empiric treatment with iv zosyn. Advance diet postoperatively per surgery. -Ventral hernia: keep npo per surgery -Hyperglycemia, not known to have DM, ?stress related. Resolved. Hemoglobin a1c normal. -Hyponatremia, dehydration: treat with ivf -Leukocytosis, resolved -DVT prophylaxis: Continue sq heparin -GI prophylaxis: Continue protonix -Nutrition: npo for now, check a1c prior to adding d5 solution full code History Interval history: Patient still complains of abdominal pain. Hospitalist Physical - Constitutional Vitals: Temp Pulse Resp BP Pulse Ox 99.2 F 61 20 115/68 98 02/06/18 07:32 02/06/18 07:32 02/06/18 07:32 02/06/18 07:32 02/06/18 07:32 General appearance: Present: other (NG tube). Absent: no acute distress, mild distress, severe distress - EENT Eyes: Present: PERRL, EOM intact ENT: hearing intact, clear oral mucosa, dentition normal - Neck Neck: Present: supple, normal ROM - Respiratory Respiratory effort: normal Respiratory: bilateral: CTA - Cardiovascular Rhythm: regular Heart Sounds: Present: S1 & S2. Absent: gallop, rub - Extremities Extremities: no ischemia, No edema, Full ROM - Abdominal General gastrointestinal: soft, tender, non-distended, normal bowel sounds Localized gastrointestinal: tender: diffuse - Integumentary Integumentary: Present: clear, warm, dry - Neurologic Neurologic: CNII-XII intact, moves all extremities Results - Labs CBC & Chem 7: 02/06/18 07:41 02/06/18 07:41 Labs: Laboratory Last Values WBC 8.0 K/mm3 (4.5-11.0) 02/06/18 07:41 RBC 4.33 M/mm3 (3.65-5.03) 02/06/18 07:41 Hgb 12.2 gm/dl (10.1-14.3) 02/06/18 07:41 Hct 37.6 % (30.3-42.9) 02/06/18 07:41 MCV 87 fl (79-97) 02/06/18 07:41 MCH 28 pg (28-32) 02/06/18 07:41 MCHC 33 % (30-34) 02/06/18 07:41 RDW 13.5 % (13.2-15.2) 02/06/18 07:41 Plt Count 224 K/mm3 (140-440) 02/06/18 07:41 Lymph % (Auto) 16.1 % (13.4-35.0) 02/06/18 07:41 [place] % (Auto) 11.2 % (0.0-7.3) H 02/06/18 07:41 Eos % (Auto) 0.3 % (0.0-4.3) 02/06/18 07:41 Baso % (Auto) 0.4 % (0.0-1.8) 02/06/18 07:41 Lymph # 1.3 K/mm3 (1.2-5.4) 02/06/18 07:41 [place] # 0.9 K/mm3 (0.0-0.8) H 02/06/18 07:41 Eos # 0.0 K/mm3 (0.0-0.4) 02/06/18 07:41 Baso # 0.0 K/mm3 (0.0-0.1) 02/06/18 07:41 Add Manual Diff Complete 02/03/18 04:03 Total Counted 100 02/03/18 04:03 Seg Neutrophils % 72.0 % (40.0-70.0) H 02/06/18 07:41 Band Neutrophils % 0 % 02/03/18 04:03 Lymphocytes % (Manual) 8.0 % (13.4-35.0) L 02/03/18 04:03 Reactive Lymphs % (Man) 0 % 02/03/18 04:03 Monocytes % (Manual) 1.0 % (0.0-7.3) 02/03/18 04:03 Eosinophils % (Manual) 0 % (0.0-4.3) 02/03/18 04:03 Basophils % (Manual) 0 % (0.0-1.8) 02/03/18 04:03 Metamyelocytes % 0 % 02/03/18 04:03 Myelocytes % 0 % 02/03/18 04:03 Promyelocytes % 0 % 02/03/18 04:03 Blast Cells % 0 % 02/03/18 04:03 Nucleated RBC % Not Reportable 02/03/18 04:03 Seg Neutrophils # 5.7 K/mm3 (1.8-7.7) 02/06/18 07:41 Seg Neutrophils # Man 10.3 K/mm3 (1.8-7.7) H 02/03/18 04:03 Band Neutrophils # 0.0 K/mm3 02/03/18 04:03 Lymphocytes # (Manual) 0.9 K/mm3 (1.2-5.4) L 02/03/18 04:03 Abs React Lymphs (Man) 0.0 K/mm3 02/03/18 04:03 Monocytes # (Manual) 0.1 K/mm3 (0.0-0.8) 02/03/18 04:03 Eosinophils # (Manual) 0.0 K/mm3 (0.0-0.4) 02/03/18 04:03 Basophils # (Manual) 0.0 K/mm3 (0.0-0.1) 02/03/18 04:03 Metamyelocytes # 0.0 K/mm3 02/03/18 04:03 Myelocytes # 0.0 K/mm3 02/03/18 04:03 Promyelocytes # 0.0 K/mm3 02/03/18 04:03 Blast Cells # 0.0 K/mm3 02/03/18 04:03 WBC Morphology Not Reportable 02/03/18 04:03 Hypersegmented Neuts Not Reportable 02/03/18 04:03 Hyposegmented Neuts Not Reportable 02/03/18 04:03 Hypogranular Neuts Not Reportable 02/03/18 04:03 Smudge Cells Not Reportable 02/03/18 04:03 Toxic Granulation Not Reportable 02/03/18 04:03 Toxic Vacuolation Not Reportable 02/03/18 04:03 Dohle Bodies Not Reportable 02/03/18 04:03 Pelger-Huet Anomaly Not Reportable 02/03/18 04:03 Natasha Rods Not Reportable 02/03/18 04:03 Platelet Estimate Consistent w auto 02/03/18 04:03 Clumped Platelets Not Reportable 02/03/18 04:03 Plt Clumps, EDTA Not Reportable 02/03/18 04:03 Large Platelets Not Reportable 02/03/18 04:03 Giant Platelets Not Reportable 02/03/18 04:03 Platelet Satelliting Not Reportable 02/03/18 04:03 Plt Morphology Comment Not Reportable 02/03/18 04:03 RBC Morphology Normal 02/03/18 04:03 Dimorphic RBCs Not Reportable 02/03/18 04:03 Polychromasia Not Reportable 02/03/18 04:03 Hypochromasia Not Reportable 02/03/18 04:03 Poikilocytosis Not Reportable 02/03/18 04:03 Anisocytosis Not Reportable 02/03/18 04:03 Microcytosis Not Reportable 02/03/18 04:03 Macrocytosis Not Reportable 02/03/18 04:03 Spherocytes Not Reportable 02/03/18 04:03 Pappenheimer Bodies Not Reportable 02/03/18 04:03 Sickle Cells Not Reportable 02/03/18 04:03 Target Cells Not Reportable 02/03/18 04:03 Tear Drop Cells Not Reportable 02/03/18 04:03 Ovalocytes Not Reportable 02/03/18 04:03 Helmet Cells Not Reportable 02/03/18 04:03 Perez-[place] Bodies Not Reportable 02/03/18 04:03 [place] Rings Not Reportable 02/03/18 04:03 [place] Cells Not Reportable 02/03/18 04:03 Bite Cells Not Reportable 02/03/18 04:03 Crenated Cell Not Reportable 02/03/18 04:03 Elliptocytes Not Reportable 02/03/18 04:03 Acanthocytes (Spur) Not Reportable 02/03/18 04:03 Rouleaux Not Reportable 02/03/18 04:03 Hemoglobin C Crystals Not Reportable 02/03/18 04:03 Schistocytes Not Reportable 02/03/18 04:03 Malaria parasites Not Reportable 02/03/18 04:03 Jaun Bodies Not Reportable 02/03/18 04:03 Hem Pathologist Commnt No 02/03/18 04:03 Sodium 144 mmol/L (137-145) 02/06/18 07:41 Potassium 3.5 mmol/L (3.6-5.0) L 02/06/18 07:41 Chloride 108.7 mmol/L (98-107) H 02/06/18 07:41 Carbon Dioxide 21 mmol/L (22-30) L 02/06/18 07:41 Anion Gap 18 mmol/L 02/06/18 07:41 BUN 13 mg/dL (7-17) 02/06/18 07:41 Creatinine 0.4 mg/dL (0.7-1.2) L 02/06/18 07:41 Estimated GFR > 60 ml/min 02/06/18 07:41 BUN/Creatinine Ratio 33 % 02/06/18 07:41 Glucose 73 mg/dL (65-100) 02/06/18 07:41 POC Glucose 131 (70-105) H 02/03/18 07:37 Hemoglobin A1c 5.6 % (4-6) 02/05/18 06:11 Lactic Acid 1.60 mmol/L (0.7-2.0) 02/04/18 15:13 Calcium 8.0 mg/dL (8.4-10.2) L 02/06/18 07:41 Total Bilirubin 0.70 mg/dL (0.1-1.2) 02/04/18 06:42 AST 20 units/L (5-40) 02/04/18 06:42 ALT 16 units/L (7-56) 02/04/18 06:42 Alkaline Phosphatase 40 units/L (35-129) 02/04/18 06:42 Total Protein 6.7 g/dL (6.3-8.2) D 02/04/18 06:42 Albumin 3.9 g/dL (3.9-5) 02/04/18 06:42 Albumin/Globulin Ratio 1.4 % 02/04/18 06:42 Amylase 50 units/L (27-131) 02/05/18 06:11 Lipase 16 units/L (13-60) 02/03/18 04:03 HCG, Qual Negative (Negative) 02/05/18 20:29 Urine Color Yellow (Yellow) 02/06/18 01:08 Urine Turbidity Clear (Clear) 02/06/18 01:08 Urine pH 5.0 (5.0-7.0) 02/06/18 01:08 Ur Specific [place] 1.027 (1.003-1.030) 02/06/18 01:08 Urine Protein 30 mg/dl mg/dL (Negative) 02/06/18 01:08 Urine Glucose (UA) 50 mg/dL (Negative) 02/06/18 01:08 Urine Ketones 80 mg/dL (Negative) 02/06/18 01:08 Urine Blood Sm (Negative) 02/06/18 01:08 Urine Nitrite Neg (Negative) 02/06/18 01:08 Urine Bilirubin Neg (Negative) 02/06/18 01:08 Urine Ictotest Negative (Negative) 02/03/18 03:52 Urine Urobilinogen < 2.0 mg/dL (<2.0) 02/06/18 01:08 Ur Leukocyte Esterase Neg (Negative) 02/06/18 01:08 Urine WBC (Auto) 4.0 /HPF (0.0-6.0) 02/06/18 01:08 Urine RBC (Auto) 1.0 /HPF (0.0-6.0) 02/06/18 01:08 U Epithel Cells (Auto) 4.0 /HPF (0-13.0) 02/06/18 01:08 Urine Mucus 3+ /HPF 02/06/18 01:08
[2018-02-06] MEDS: SODIUM CHLORIDE FLUSH SYRINGE 10 ML IV SCH ×2 (10:33→22:11)
[2018-02-06] MEDS: PROTONIX IV SCH (10:33)
[2018-02-06] MEDS: HEPARIN SUB-Q SCH (10:34)
[2018-02-06] MEDS: NACL 0.9% 1000 ML 1,000 ML IV SCH (14:17)
[2018-02-06] MEDS ORDERED: DIPRIVAN 10 MG/ML IV ONE (15:42)
[2018-02-06] MEDS ORDERED: SUBLIMAZE ONE (15:42)
[2018-02-06] MEDS ORDERED: XYLOCAINE MPF 2% ONE ×2 (15:43→16:50)
[2018-02-06] MEDS ORDERED: TORADOL IV PRN (15:52)
[2018-02-06] MEDS ORDERED: ZOFRAN IV PRN (15:52)
[2018-02-06] MEDS ORDERED: TYLENOL PO PRN (15:52)
[2018-02-06] MEDS ORDERED: QUELICIN ONE (16:50)
[2018-02-06] MEDS ORDERED: ZEMURON IV ONE (16:50)
[2018-02-06] MEDS ORDERED: DILAUDID ONE ×2 (16:51→17:37)
[2018-02-06] MEDS ORDERED: NACL 0.9% 1000 ML 1,000 ML ONE (16:52)
[2018-02-06] MEDS ORDERED: ROBINUL ONE (17:19)
[2018-02-06] MEDS ORDERED: NEOSTIGMINE ONE (17:19)
[2018-02-06] MEDS ORDERED: ZOFRAN ONE (17:33)
--- NOTE | 2018-02-06 17:49 | Anesthesia Consultation ---
Anesthesia Consult and Med Hx Date of service: 02/06/18 - Airway Anesthetic Teeth Evaluation: Good ROM Head & Neck: Adequate Mental/Hyoid Distance: Adequate Mallampati Class: Class II Intubation Access Assessment: Probably Good - Pulmonary Exam CTA: Yes - Cardiac Exam Cardiac Exam: RRR - Pre-Operative Health Status ASA Pre-Surgery Classification: ASA3 Proposed Anesthetic Plan: General - Pulmonary Hx Smoking: No Hx Asthma: No COPD: No Hx Pneumonia: No - Cardiovascular System Hx Hypertension: No - Endocrine Hx End Stage Renal Disease: No - Other Systems Hx Alcohol Use: Yes Hx Substance Use: Yes
--- NOTE | 2018-02-06 17:49 | Post Anesthesia Evaluation ---
- Post Anesthesia Evaluation Patient Participated: Yes Airway Patent: Yes Stable Respiratory Function: Yes Nausea/Vomiting: No Temp > 96.8F: Yes Pain Manageable: Yes Adequeate Hydration: Yes Anesthesia Complications: No
--- NOTE | 2018-02-06 17:49 | Anesthesia Day of Surgery ---
Anesthesia Day of Surgery - Day of Surgery Patient Examined: Yes Patient H&P Reviewed: Yes Patient is NPO: Yes
[2018-02-06] MEDS: DILAUDID IV PRN ×3 (18:13→22:16)
--- NOTE | 2018-02-06 18:25 | XRay Report ---
FINAL REPORT EXAM: XR ABDOMEN 1V AP HISTORY: POST OP. EXPLOR LAP. NGTUBE PLACEMENT TECHNIQUE: Supine abdomen single view PRIORS: None. FINDINGS: There is an NG tube present. Distal end overlies the region of the gastroesophageal junction. Suggest advancement Surgical clips are noted in the right upper quadrant. Few mildly distended bowel loops are noted likely postoperative ileus. Surgical david overlie the mid abdomen. IMPRESSION: NG tube appears at the gastroesophageal junction recommend advancement
--- NOTE | 2018-02-06 19:25 | Operative Report ---
PREOPERATIVE DIAGNOSES: 1. Small-bowel obstruction. 2. Ventral hernia. POSTOPERATIVE DIAGNOSES: 1. Small-bowel obstruction. 2. Ventral hernia. PROCEDURE: 1. Emergency exploratory laparotomy. 2. Lysis of adhesions. 3. Repair of ventral hernia. 4. Excision of incarcerated preperitoneal fat. SURGEON: Gee Titus MD. RAP ARTIST: Dr. Whitfield. ANESTHESIA: General. ESTIMATED BLOOD LOSS: Minimal. No drains or complications. DESCRIPTION OF PROCEDURE: The patient was taken to the operating room, prepped and draped in usual sterile fashion. Midline incision was made and abdomen entered. Ventral hernia was noted and portions of preperitoneal fat were noted to be incarcerated within hernia site, but no bowel was in the site. This was consistent with the findings we had seen preoperatively on the CT. The incarcerated preperitoneal fat was removed and sent as specimen. The hernia was closed with interrupted #1 Vicryl sutures. The hernia was then once again reinforced during the final fascial closure. Abdomen was entered and dilated small bowel loops were noted. The dilated small bowel loops were followed down towards the pelvis until collapsed loops could be seen. The offending adhesion was then identified and lysed. The entire small bowel was then brought up to the operative field. The area of transition was clearly seen and noted to now be freed. Succus entericus easily flowed through the area in question. The bowel was noted to be pink with peristalsis. Bowel was covered with ____ warm saline while the aforementioned repair of the ventral hernia was performed. The bowel was then once again inspected and normal color and peristalsis noted. The entire abdomen was then irrigated copiously and dried. Checked for hemostasis and noted to be dry. The bowel was then returned to the peritoneal cavity. No other gross abdominal pathology seen. The fascia was then closed with interrupted #1 Vicryl sutures. Subcutaneous tissues irrigated and skin closed with david. The patient tolerated the procedure well and left OR in stable condition. JOB# [id number] SERGEI/SHIVAM
[2018-02-06] MEDS: CEPACOL X STRENGTH MM PRN (22:17)
[2018-02-06] MEDS: D5W/0.45% NACL/KCL 30 MEQ 30 MEQ/1,000 ML BAG IV SCH (22:18)
[2018-02-07] MEDS: DILAUDID IV PRN ×5 (01:46→21:24)
[2018-02-07 05:54] LABS: Basophils % (Auto) 0.3 % (0.0-1.8); Eosinophils # (Auto) 0.1 K/mm3 (0.0-0.4); Eosinophils % (Auto) 1.1 % (0.0-4.3); Hemoglobin 11.8 gm/dl (10.1-14.3); Lymphocytes # (Auto) 0.5 K/mm3 (1.2-5.4); Lymphocytes % (Auto) 8.9 % (13.4-35.0); Mean Corpuscular HGB Conc 33 % (30-34); Mean Corpuscular Hemoglobin 28 pg (28-32); Mean Corpuscular Volume 87 fl (79-97); Monocytes # (Auto) 0.6 K/mm3 (0.0-0.8); Monocytes % (Auto) 11.8 % (0.0-7.3); Platelet Count 222 K/mm3 (140-440); Red Blood Count 4.15 M/mm3 (3.65-5.03); Red Cell Distribution Width 13.2 % (13.2-15.2)
[2018-02-07] MEDS: D5W/0.45% NACL/KCL 30 MEQ 30 MEQ/1,000 ML BAG IV SCH ×2 (06:10→16:52)
[2018-02-07 06:15] LABS: BUN/Creatinine Ratio 13; Blood Urea Nitrogen 5 mg/dL (7-17); Calcium 7.4 mg/dL (8.4-10.2); Hemolysis Index 2
--- NOTE | 2018-02-07 08:39 | Progress Note ---
Assessment and Plan POD #1 Pt feeling well. c/o incisional pain. Abd - dressings dry neg BS stable d/c avldivia OOB and ambulate as shawn Selected Entries 02/07/18 02/07/18 00:26 05:09 Temperature 98.0 F Pulse Rate 70 Respiratory 18 Rate Blood Pressure 136/86 Laboratory Tests 02/07/18 02/07/18 05:15 05:15 WBC 5.1 Hgb 11.8 Hct 36.0 Sodium 139 Potassium 3.8 Chloride 105.8 Carbon Dioxide 21 L BUN 5 L Creatinine 0.4 L Objective Vital Signs - 12hr 02/06/18 02/07/18 02/07/18 21:48 00:25 00:26 Temperature 98.6 F 98.7 F Pulse Rate 75 70 70 Respiratory 16 17 Rate Blood Pressure 122/83 Blood Pressure 130/83 [Left] O2 Sat by Pulse 98 98 98 Oximetry 02/07/18 05:09 Temperature 98.0 F Pulse Rate 91 H Respiratory 18 Rate Blood Pressure 136/86 Blood Pressure [Left] O2 Sat by Pulse 99 Oximetry - Labs 02/07/18 05:15 02/07/18 05:15 Diabetes panel 02/06/18 02/07/18 Range/Units 07:41 05:15 Sodium 144 139 (137-145) mmol/L Potassium 3.5 L 3.8 (3.6-5.0) mmol/L Chloride 108.7 H 105.8 (98-107) mmol/L Carbon Dioxide 21 L 21 L (22-30) mmol/L BUN 13 5 L (7-17) mg/dL Creatinine 0.4 L 0.4 L (0.7-1.2) mg/dL Glucose 73 137 H (65-100) mg/dL Calcium 8.0 L 7.4 L (8.4-10.2) mg/dL Calcium panel 02/06/18 02/07/18 Range/Units 07:41 05:15 Calcium 8.0 L 7.4 L (8.4-10.2) mg/dL Pituitary panel 02/06/18 02/07/18 Range/Units 07:41 05:15 Sodium 144 139 (137-145) mmol/L Potassium 3.5 L 3.8 (3.6-5.0) mmol/L Chloride 108.7 H 105.8 (98-107) mmol/L Carbon Dioxide 21 L 21 L (22-30) mmol/L BUN 13 5 L (7-17) mg/dL Creatinine 0.4 L 0.4 L (0.7-1.2) mg/dL Glucose 73 137 H (65-100) mg/dL Calcium 8.0 L 7.4 L (8.4-10.2) mg/dL Adrenal panel 02/06/18 02/07/18 Range/Units 07:41 05:15 Sodium 144 139 (137-145) mmol/L Potassium 3.5 L 3.8 (3.6-5.0) mmol/L Chloride 108.7 H 105.8 (98-107) mmol/L Carbon Dioxide 21 L 21 L (22-30) mmol/L BUN 13 5 L (7-17) mg/dL Creatinine 0.4 L 0.4 L (0.7-1.2) mg/dL Glucose 73 137 H (65-100) mg/dL Calcium 8.0 L 7.4 L (8.4-10.2) mg/dL
--- NOTE | 2018-02-07 09:17 | Progress Note ---
Assessment and Plan Assessment and plan: -Small bowel obstruction. s/p exploratory lap with ARCHIE and repair of ventral hernia. Empiric treatment with iv zosyn. Advance diet postoperatively per surgery. OOB and ambulate as shawn -Ventral hernia. As above -Hyperglycemia, not known to have DM, ?stress related. Resolved. Hemoglobin a1c normal. -Hyponatremia, dehydration: treat with ivf -Leukocytosis, resolved -DVT prophylaxis: Continue sq heparin -GI prophylaxis: Continue protonix full code History Interval history: Patient still complains of abdominal pain. Hospitalist Physical - Constitutional Vitals: Temp Pulse Resp BP Pulse Ox 99.5 F 76 18 121/86 98 02/07/18 08:00 02/07/18 08:00 02/07/18 08:00 02/07/18 08:00 02/07/18 07:40 General appearance: Present: other (NG tube). Absent: no acute distress, mild distress, severe distress - EENT Eyes: Present: PERRL, EOM intact ENT: hearing intact, clear oral mucosa, dentition normal - Neck Neck: Present: supple, normal ROM - Respiratory Respiratory effort: normal Respiratory: bilateral: CTA - Cardiovascular Rhythm: regular Heart Sounds: Present: S1 & S2. Absent: gallop, rub - Extremities Extremities: no ischemia, No edema, Full ROM - Abdominal General gastrointestinal: soft, non-tender, non-distended, normal bowel sounds - Integumentary Integumentary: Present: clear, warm, dry - Neurologic Neurologic: CNII-XII intact, moves all extremities Results - Labs CBC & Chem 7: 02/07/18 05:15 02/07/18 05:15 Labs: Laboratory Last Values WBC 5.1 K/mm3 (4.5-11.0) 02/07/18 05:15 RBC 4.15 M/mm3 (3.65-5.03) 02/07/18 05:15 Hgb 11.8 gm/dl (10.1-14.3) 02/07/18 05:15 Hct 36.0 % (30.3-42.9) 02/07/18 05:15 MCV 87 fl (79-97) 02/07/18 05:15 MCH 28 pg (28-32) 02/07/18 05:15 MCHC 33 % (30-34) 02/07/18 05:15 RDW 13.2 % (13.2-15.2) 02/07/18 05:15 Plt Count 222 K/mm3 (140-440) 02/07/18 05:15 Lymph % (Auto) 8.9 % (13.4-35.0) L 02/07/18 05:15 [place] % (Auto) 11.8 % (0.0-7.3) H 02/07/18 05:15 Eos % (Auto) 1.1 % (0.0-4.3) 02/07/18 05:15 Baso % (Auto) 0.3 % (0.0-1.8) 02/07/18 05:15 Lymph # 0.5 K/mm3 (1.2-5.4) L 02/07/18 05:15 [place] # 0.6 K/mm3 (0.0-0.8) 02/07/18 05:15 Eos # 0.1 K/mm3 (0.0-0.4) 02/07/18 05:15 Baso # 0.0 K/mm3 (0.0-0.1) 02/07/18 05:15 Add Manual Diff Complete 02/03/18 04:03 Total Counted 100 02/03/18 04:03 Seg Neutrophils % 77.9 % (40.0-70.0) H 02/07/18 05:15 Band Neutrophils % 0 % 02/03/18 04:03 Lymphocytes % (Manual) 8.0 % (13.4-35.0) L 02/03/18 04:03 Reactive Lymphs % (Man) 0 % 02/03/18 04:03 Monocytes % (Manual) 1.0 % (0.0-7.3) 02/03/18 04:03 Eosinophils % (Manual) 0 % (0.0-4.3) 02/03/18 04:03 Basophils % (Manual) 0 % (0.0-1.8) 02/03/18 04:03 Metamyelocytes % 0 % 02/03/18 04:03 Myelocytes % 0 % 02/03/18 04:03 Promyelocytes % 0 % 02/03/18 04:03 Blast Cells % 0 % 02/03/18 04:03 Nucleated RBC % Not Reportable 02/03/18 04:03 Seg Neutrophils # 3.9 K/mm3 (1.8-7.7) 02/07/18 05:15 Seg Neutrophils # Man 10.3 K/mm3 (1.8-7.7) H 02/03/18 04:03 Band Neutrophils # 0.0 K/mm3 02/03/18 04:03 Lymphocytes # (Manual) 0.9 K/mm3 (1.2-5.4) L 02/03/18 04:03 Abs React Lymphs (Man) 0.0 K/mm3 02/03/18 04:03 Monocytes # (Manual) 0.1 K/mm3 (0.0-0.8) 02/03/18 04:03 Eosinophils # (Manual) 0.0 K/mm3 (0.0-0.4) 02/03/18 04:03 Basophils # (Manual) 0.0 K/mm3 (0.0-0.1) 02/03/18 04:03 Metamyelocytes # 0.0 K/mm3 02/03/18 04:03 Myelocytes # 0.0 K/mm3 02/03/18 04:03 Promyelocytes # 0.0 K/mm3 02/03/18 04:03 Blast Cells # 0.0 K/mm3 02/03/18 04:03 WBC Morphology Not Reportable 02/03/18 04:03 Hypersegmented Neuts Not Reportable 02/03/18 04:03 Hyposegmented Neuts Not Reportable 02/03/18 04:03 Hypogranular Neuts Not Reportable 02/03/18 04:03 Smudge Cells Not Reportable 02/03/18 04:03 Toxic Granulation Not Reportable 02/03/18 04:03 Toxic Vacuolation Not Reportable 02/03/18 04:03 Dohle Bodies Not Reportable 02/03/18 04:03 Pelger-Huet Anomaly Not Reportable 02/03/18 04:03 Natasha Rods Not Reportable 02/03/18 04:03 Platelet Estimate Consistent w auto 02/03/18 04:03 Clumped Platelets Not Reportable 02/03/18 04:03 Plt Clumps, EDTA Not Reportable 02/03/18 04:03 Large Platelets Not Reportable 02/03/18 04:03 Giant Platelets Not Reportable 02/03/18 04:03 Platelet Satelliting Not Reportable 02/03/18 04:03 Plt Morphology Comment Not Reportable 02/03/18 04:03 RBC Morphology Normal 02/03/18 04:03 Dimorphic RBCs Not Reportable 02/03/18 04:03 Polychromasia Not Reportable 02/03/18 04:03 Hypochromasia Not Reportable 02/03/18 04:03 Poikilocytosis Not Reportable 02/03/18 04:03 Anisocytosis Not Reportable 02/03/18 04:03 Microcytosis Not Reportable 02/03/18 04:03 Macrocytosis Not Reportable 02/03/18 04:03 Spherocytes Not Reportable 02/03/18 04:03 Pappenheimer Bodies Not Reportable 02/03/18 04:03 Sickle Cells Not Reportable 02/03/18 04:03 Target Cells Not Reportable 02/03/18 04:03 Tear Drop Cells Not Reportable 02/03/18 04:03 Ovalocytes Not Reportable 02/03/18 04:03 Helmet Cells Not Reportable 02/03/18 04:03 Perez-[place] Bodies Not Reportable 02/03/18 04:03 [place] Rings Not Reportable 02/03/18 04:03 [place] Cells Not Reportable 02/03/18 04:03 Bite Cells Not Reportable 02/03/18 04:03 Crenated Cell Not Reportable 02/03/18 04:03 Elliptocytes Not Reportable 02/03/18 04:03 Acanthocytes (Spur) Not Reportable 02/03/18 04:03 Rouleaux Not Reportable 02/03/18 04:03 Hemoglobin C Crystals Not Reportable 02/03/18 04:03 Schistocytes Not Reportable 02/03/18 04:03 Malaria parasites Not Reportable 02/03/18 04:03 Jaun Bodies Not Reportable 02/03/18 04:03 Hem Pathologist Commnt No 02/03/18 04:03 Sodium 139 mmol/L (137-145) 02/07/18 05:15 Potassium 3.8 mmol/L (3.6-5.0) 02/07/18 05:15 Chloride 105.8 mmol/L (98-107) 02/07/18 05:15 Carbon Dioxide 21 mmol/L (22-30) L 02/07/18 05:15 Anion Gap 16 mmol/L 02/07/18 05:15 BUN 5 mg/dL (7-17) L 02/07/18 05:15 Creatinine 0.4 mg/dL (0.7-1.2) L 02/07/18 05:15 Estimated GFR > 60 ml/min 02/07/18 05:15 BUN/Creatinine Ratio 13 % 02/07/18 05:15 Glucose 137 mg/dL (65-100) H 02/07/18 05:15 POC Glucose 131 (70-105) H 02/03/18 07:37 Hemoglobin A1c 5.6 % (4-6) 02/05/18 06:11 Lactic Acid 1.60 mmol/L (0.7-2.0) 02/04/18 15:13 Calcium 7.4 mg/dL (8.4-10.2) L 02/07/18 05:15 Total Bilirubin 0.70 mg/dL (0.1-1.2) 02/04/18 06:42 AST 20 units/L (5-40) 02/04/18 06:42 ALT 16 units/L (7-56) 02/04/18 06:42 Alkaline Phosphatase 40 units/L (35-129) 02/04/18 06:42 Total Protein 6.7 g/dL (6.3-8.2) D 02/04/18 06:42 Albumin 3.9 g/dL (3.9-5) 02/04/18 06:42 Albumin/Globulin Ratio 1.4 % 02/04/18 06:42 Amylase 50 units/L (27-131) 02/05/18 06:11 Lipase 16 units/L (13-60) 02/03/18 04:03 HCG, Qual Negative (Negative) 02/05/18 20:29 Urine Color Yellow (Yellow) 02/06/18 01:08 Urine Turbidity Clear (Clear) 02/06/18 01:08 Urine pH 5.0 (5.0-7.0) 02/06/18 01:08 Ur Specific [place] 1.027 (1.003-1.030) 02/06/18 01:08 Urine Protein 30 mg/dl mg/dL (Negative) 02/06/18 01:08 Urine Glucose (UA) 50 mg/dL (Negative) 02/06/18 01:08 Urine Ketones 80 mg/dL (Negative) 02/06/18 01:08 Urine Blood Sm (Negative) 02/06/18 01:08 Urine Nitrite Neg (Negative) 02/06/18 01:08 Urine Bilirubin Neg (Negative) 02/06/18 01:08 Urine Ictotest Negative (Negative) 02/03/18 03:52 Urine Urobilinogen < 2.0 mg/dL (<2.0) 02/06/18 01:08 Ur Leukocyte Esterase Neg (Negative) 02/06/18 01:08 Urine WBC (Auto) 4.0 /HPF (0.0-6.0) 02/06/18 01:08 Urine RBC (Auto) 1.0 /HPF (0.0-6.0) 02/06/18 01:08 U Epithel Cells (Auto) 4.0 /HPF (0-13.0) 02/06/18 01:08 Urine Mucus 3+ /HPF 02/06/18 01:08
[2018-02-07] MEDS: SODIUM CHLORIDE FLUSH SYRINGE 10 ML IV SCH (10:10)
[2018-02-07] MEDS: PROTONIX IV SCH (11:05)
[2018-02-07] MEDS: ZOFRAN IV PRN (21:27)
[2018-02-08] MEDS: DILAUDID IV PRN ×6 (00:29→20:51)
[2018-02-08] MEDS: D5W/0.45% NACL/KCL 30 MEQ 30 MEQ/1,000 ML BAG IV SCH ×3 (00:30→17:38)
[2018-02-08] MEDS: ZOFRAN IV PRN (03:48)
[2018-02-08 05:03] LABS: Basophils % (Auto) 0.3 % (0.0-1.8); Eosinophils # (Auto) 0.1 K/mm3 (0.0-0.4); Eosinophils % (Auto) 1.8 % (0.0-4.3); Hematocrit 35.1 % (30.3-42.9); Hemoglobin 11.8 gm/dl (10.1-14.3); Lymphocytes % (Auto) 17.8 % (13.4-35.0); Mean Corpuscular HGB Conc 34 % (30-34); Mean Corpuscular Hemoglobin 29 pg (28-32); Mean Corpuscular Volume 86 fl (79-97); Monocytes # (Auto) 0.8 K/mm3 (0.0-0.8); Monocytes % (Auto) 14.7 % (0.0-7.3); Platelet Count 227 K/mm3 (140-440); Red Blood Count 4.07 M/mm3 (3.65-5.03); Red Cell Distribution Width 13.5 % (13.2-15.2)
[2018-02-08 05:17] LABS: BUN/Creatinine Ratio 6; Blood Urea Nitrogen 3 mg/dL (7-17); Calcium 7.6 mg/dL (8.4-10.2); Hemolysis Index 0
[2018-02-08] MEDS: PROTONIX IV SCH (09:15)
--- NOTE | 2018-02-08 10:47 | Progress Note ---
Assessment and Plan Assessment and plan: -Small bowel obstruction. s/p exploratory lap with ARCHIE and repair of ventral hernia. Empiric treatment with iv zosyn. Advance diet postoperatively per surgery. OOB and ambulate as shawn -Ventral hernia. As above -Hyperglycemia, not known to have DM, ?stress related. Resolved. Hemoglobin a1c normal. -Hyponatremia, resolved -Leukocytosis, resolved -DVT prophylaxis: Continue sq heparin -GI prophylaxis: Continue protonix full code History Interval history: Patient has not had flatus or a bowel movement. Hospitalist Physical - Constitutional Vitals: Temp Pulse Resp BP Pulse Ox 98.7 F 68 16 128/88 98 02/08/18 07:21 02/08/18 07:21 02/08/18 07:21 02/08/18 07:21 02/08/18 07:21 General appearance: Present: other (NG tube). Absent: no acute distress, mild distress, severe distress - EENT Eyes: Present: PERRL, EOM intact ENT: hearing intact, clear oral mucosa, dentition normal - Neck Neck: Present: supple, normal ROM - Respiratory Respiratory effort: normal Respiratory: bilateral: CTA - Cardiovascular Rhythm: regular Heart Sounds: Present: S1 & S2. Absent: gallop, rub - Extremities Extremities: no ischemia, No edema, Full ROM - Abdominal General gastrointestinal: soft, non-tender, non-distended, normal bowel sounds - Integumentary Integumentary: Present: clear, warm, dry - Neurologic Neurologic: CNII-XII intact, moves all extremities Results - Labs CBC & Chem 7: 02/08/18 04:33 02/08/18 04:33 Labs: Laboratory Last Values WBC 5.5 K/mm3 (4.5-11.0) 02/08/18 04:33 RBC 4.07 M/mm3 (3.65-5.03) 02/08/18 04:33 Hgb 11.8 gm/dl (10.1-14.3) 02/08/18 04:33 Hct 35.1 % (30.3-42.9) 02/08/18 04:33 MCV 86 fl (79-97) 02/08/18 04:33 MCH 29 pg (28-32) 02/08/18 04:33 MCHC 34 % (30-34) 02/08/18 04:33 RDW 13.5 % (13.2-15.2) 02/08/18 04:33 Plt Count 227 K/mm3 (140-440) 02/08/18 04:33 Lymph % (Auto) 17.8 % (13.4-35.0) 02/08/18 04:33 [place] % (Auto) 14.7 % (0.0-7.3) H 02/08/18 04:33 Eos % (Auto) 1.8 % (0.0-4.3) 02/08/18 04:33 Baso % (Auto) 0.3 % (0.0-1.8) 02/08/18 04:33 Lymph # 1.0 K/mm3 (1.2-5.4) L 02/08/18 04:33 [place] # 0.8 K/mm3 (0.0-0.8) 02/08/18 04:33 Eos # 0.1 K/mm3 (0.0-0.4) 02/08/18 04:33 Baso # 0.0 K/mm3 (0.0-0.1) 02/08/18 04:33 Add Manual Diff Complete 02/03/18 04:03 Total Counted 100 02/03/18 04:03 Seg Neutrophils % 65.4 % (40.0-70.0) 02/08/18 04:33 Band Neutrophils % 0 % 02/03/18 04:03 Lymphocytes % (Manual) 8.0 % (13.4-35.0) L 02/03/18 04:03 Reactive Lymphs % (Man) 0 % 02/03/18 04:03 Monocytes % (Manual) 1.0 % (0.0-7.3) 02/03/18 04:03 Eosinophils % (Manual) 0 % (0.0-4.3) 02/03/18 04:03 Basophils % (Manual) 0 % (0.0-1.8) 02/03/18 04:03 Metamyelocytes % 0 % 02/03/18 04:03 Myelocytes % 0 % 02/03/18 04:03 Promyelocytes % 0 % 02/03/18 04:03 Blast Cells % 0 % 02/03/18 04:03 Nucleated RBC % Not Reportable 02/03/18 04:03 Seg Neutrophils # 3.6 K/mm3 (1.8-7.7) 02/08/18 04:33 Seg Neutrophils # Man 10.3 K/mm3 (1.8-7.7) H 02/03/18 04:03 Band Neutrophils # 0.0 K/mm3 02/03/18 04:03 Lymphocytes # (Manual) 0.9 K/mm3 (1.2-5.4) L 02/03/18 04:03 Abs React Lymphs (Man) 0.0 K/mm3 02/03/18 04:03 Monocytes # (Manual) 0.1 K/mm3 (0.0-0.8) 02/03/18 04:03 Eosinophils # (Manual) 0.0 K/mm3 (0.0-0.4) 02/03/18 04:03 Basophils # (Manual) 0.0 K/mm3 (0.0-0.1) 02/03/18 04:03 Metamyelocytes # 0.0 K/mm3 02/03/18 04:03 Myelocytes # 0.0 K/mm3 02/03/18 04:03 Promyelocytes # 0.0 K/mm3 02/03/18 04:03 Blast Cells # 0.0 K/mm3 02/03/18 04:03 WBC Morphology Not Reportable 02/03/18 04:03 Hypersegmented Neuts Not Reportable 02/03/18 04:03 Hyposegmented Neuts Not Reportable 02/03/18 04:03 Hypogranular Neuts Not Reportable 02/03/18 04:03 Smudge Cells Not Reportable 02/03/18 04:03 Toxic Granulation Not Reportable 02/03/18 04:03 Toxic Vacuolation Not Reportable 02/03/18 04:03 Dohle Bodies Not Reportable 02/03/18 04:03 Pelger-Huet Anomaly Not Reportable 02/03/18 04:03 Natasha Rods Not Reportable 02/03/18 04:03 Platelet Estimate Consistent w auto 02/03/18 04:03 Clumped Platelets Not Reportable 02/03/18 04:03 Plt Clumps, EDTA Not Reportable 02/03/18 04:03 Large Platelets Not Reportable 02/03/18 04:03 Giant Platelets Not Reportable 02/03/18 04:03 Platelet Satelliting Not Reportable 02/03/18 04:03 Plt Morphology Comment Not Reportable 02/03/18 04:03 RBC Morphology Normal 02/03/18 04:03 Dimorphic RBCs Not Reportable 02/03/18 04:03 Polychromasia Not Reportable 02/03/18 04:03 Hypochromasia Not Reportable 02/03/18 04:03 Poikilocytosis Not Reportable 02/03/18 04:03 Anisocytosis Not Reportable 02/03/18 04:03 Microcytosis Not Reportable 02/03/18 04:03 Macrocytosis Not Reportable 02/03/18 04:03 Spherocytes Not Reportable 02/03/18 04:03 Pappenheimer Bodies Not Reportable 02/03/18 04:03 Sickle Cells Not Reportable 02/03/18 04:03 Target Cells Not Reportable 02/03/18 04:03 Tear Drop Cells Not Reportable 02/03/18 04:03 Ovalocytes Not Reportable 02/03/18 04:03 Helmet Cells Not Reportable 02/03/18 04:03 Perez-[place] Bodies Not Reportable 02/03/18 04:03 [place] Rings Not Reportable 02/03/18 04:03 [place] Cells Not Reportable 02/03/18 04:03 Bite Cells Not Reportable 02/03/18 04:03 Crenated Cell Not Reportable 02/03/18 04:03 Elliptocytes Not Reportable 02/03/18 04:03 Acanthocytes (Spur) Not Reportable 02/03/18 04:03 Rouleaux Not Reportable 02/03/18 04:03 Hemoglobin C Crystals Not Reportable 02/03/18 04:03 Schistocytes Not Reportable 02/03/18 04:03 Malaria parasites Not Reportable 02/03/18 04:03 Jaun Bodies Not Reportable 02/03/18 04:03 Hem Pathologist Commnt No 02/03/18 04:03 Sodium 137 mmol/L (137-145) 02/08/18 04:33 Potassium 3.6 mmol/L (3.6-5.0) 02/08/18 04:33 Chloride 102.2 mmol/L (98-107) 02/08/18 04:33 Carbon Dioxide 26 mmol/L (22-30) 02/08/18 04:33 Anion Gap 12 mmol/L 02/08/18 04:33 BUN 3 mg/dL (7-17) L 02/08/18 04:33 Creatinine 0.5 mg/dL (0.7-1.2) L 02/08/18 04:33 Estimated GFR > 60 ml/min 02/08/18 04:33 BUN/Creatinine Ratio 6 % 02/08/18 04:33 Glucose 98 mg/dL (65-100) 02/08/18 04:33 POC Glucose 131 (70-105) H 02/03/18 07:37 Hemoglobin A1c 5.6 % (4-6) 02/05/18 06:11 Lactic Acid 1.60 mmol/L (0.7-2.0) 02/04/18 15:13 Calcium 7.6 mg/dL (8.4-10.2) L 02/08/18 04:33 Total Bilirubin 0.70 mg/dL (0.1-1.2) 02/04/18 06:42 AST 20 units/L (5-40) 02/04/18 06:42 ALT 16 units/L (7-56) 02/04/18 06:42 Alkaline Phosphatase 40 units/L (35-129) 02/04/18 06:42 Total Protein 6.7 g/dL (6.3-8.2) D 02/04/18 06:42 Albumin 3.9 g/dL (3.9-5) 02/04/18 06:42 Albumin/Globulin Ratio 1.4 % 02/04/18 06:42 Amylase 50 units/L (27-131) 02/05/18 06:11 Lipase 16 units/L (13-60) 02/03/18 04:03 HCG, Qual Negative (Negative) 02/05/18 20:29 Urine Color Yellow (Yellow) 02/06/18 01:08 Urine Turbidity Clear (Clear) 02/06/18 01:08 Urine pH 5.0 (5.0-7.0) 02/06/18 01:08 Ur Specific [place] 1.027 (1.003-1.030) 02/06/18 01:08 Urine Protein 30 mg/dl mg/dL (Negative) 02/06/18 01:08 Urine Glucose (UA) 50 mg/dL (Negative) 02/06/18 01:08 Urine Ketones 80 mg/dL (Negative) 02/06/18 01:08 Urine Blood Sm (Negative) 02/06/18 01:08 Urine Nitrite Neg (Negative) 02/06/18 01:08 Urine Bilirubin Neg (Negative) 02/06/18 01:08 Urine Ictotest Negative (Negative) 02/03/18 03:52 Urine Urobilinogen < 2.0 mg/dL (<2.0) 02/06/18 01:08 Ur Leukocyte Esterase Neg (Negative) 02/06/18 01:08 Urine WBC (Auto) 4.0 /HPF (0.0-6.0) 02/06/18 01:08 Urine RBC (Auto) 1.0 /HPF (0.0-6.0) 02/06/18 01:08 U Epithel Cells (Auto) 4.0 /HPF (0-13.0) 02/06/18 01:08 Urine Mucus 3+ /HPF 02/06/18 01:08
[2018-02-08] MEDS ORDERED: NACL 0.9% 1,000 ML IR ONE (11:56)
--- NOTE | 2018-02-08 12:06 | Progress Note ---
Assessment and Plan POD # 2 Pt c/o abd pain. ng pulled out, not suctioning. Abd distended dressings dry stable re-position ng tube ambulation continue present care Selected Entries 02/08/18 07:21 Temperature 98.7 F Pulse Rate 68 Blood Pressure 128/88 Laboratory Tests 02/08/18 02/08/18 04:33 04:33 WBC 5.5 Hgb 11.8 Hct 35.1 Sodium 137 Potassium 3.6 Chloride 102.2 Carbon Dioxide 26 BUN 3 L Creatinine 0.5 L Objective Vital Signs - 12hr 02/08/18 02/08/18 02/08/18 00:21 04:24 07:21 Temperature 99.0 F 99.1 F 98.7 F Pulse Rate 76 78 68 Respiratory 18 18 16 Rate Blood Pressure 132/78 121/92 128/88 O2 Sat by Pulse 99 97 98 Oximetry - Labs 02/08/18 04:33 02/08/18 04:33 Diabetes panel 02/08/18 Range/Units 04:33 Sodium 137 (137-145) mmol/L Potassium 3.6 (3.6-5.0) mmol/L Chloride 102.2 (98-107) mmol/L Carbon Dioxide 26 (22-30) mmol/L BUN 3 L (7-17) mg/dL Creatinine 0.5 L (0.7-1.2) mg/dL Glucose 98 (65-100) mg/dL Calcium 7.6 L (8.4-10.2) mg/dL Calcium panel 02/08/18 Range/Units 04:33 Calcium 7.6 L (8.4-10.2) mg/dL Pituitary panel 02/08/18 Range/Units 04:33 Sodium 137 (137-145) mmol/L Potassium 3.6 (3.6-5.0) mmol/L Chloride 102.2 (98-107) mmol/L Carbon Dioxide 26 (22-30) mmol/L BUN 3 L (7-17) mg/dL Creatinine 0.5 L (0.7-1.2) mg/dL Glucose 98 (65-100) mg/dL Calcium 7.6 L (8.4-10.2) mg/dL Adrenal panel 02/08/18 Range/Units 04:33 Sodium 137 (137-145) mmol/L Potassium 3.6 (3.6-5.0) mmol/L Chloride 102.2 (98-107) mmol/L Carbon Dioxide 26 (22-30) mmol/L BUN 3 L (7-17) mg/dL Creatinine 0.5 L (0.7-1.2) mg/dL Glucose 98 (65-100) mg/dL Calcium 7.6 L (8.4-10.2) mg/dL
[2018-02-08] MEDS ORDERED: NACL 0.9% IR PRN (12:28)
[2018-02-08] MEDS: SODIUM CHLORIDE FLUSH SYRINGE 10 ML IV SCH (12:31)
[2018-02-09] MEDS: ZOFRAN IV PRN ×2 (01:12→07:19)
[2018-02-09] MEDS: MORPHINE IV PRN (01:13)
[2018-02-09] MEDS: DILAUDID IV PRN ×5 (02:39→20:44)
[2018-02-09 05:00] LABS: Basophils % (Auto) 0.2 % (0.0-1.8); Eosinophils # (Auto) 0.1 K/mm3 (0.0-0.4); Eosinophils % (Auto) 1.3 % (0.0-4.3); Hematocrit 35.1 % (30.3-42.9); Hemoglobin 11.7 gm/dl (10.1-14.3); Lymphocytes # (Auto) 1.2 K/mm3 (1.2-5.4); Lymphocytes % (Auto) 17.3 % (13.4-35.0); Mean Corpuscular HGB Conc 33 % (30-34); Mean Corpuscular Hemoglobin 29 pg (28-32); Mean Corpuscular Volume 85 fl (79-97); Monocytes # (Auto) 0.7 K/mm3 (0.0-0.8); Monocytes % (Auto) 10.4 % (0.0-7.3); Platelet Count 241 K/mm3 (140-440); Red Blood Count 4.11 M/mm3 (3.65-5.03); Red Cell Distribution Width 12.9 % (13.2-15.2)
[2018-02-09 05:18] LABS: BUN/Creatinine Ratio 8; Blood Urea Nitrogen 3 mg/dL (7-17); Hemolysis Index 1
--- NOTE | 2018-02-09 09:58 | Progress Note ---
Assessment and Plan POD # 3 Pt feeling better. neg flatus 450 cc from ng Abd decreased distention, decreased tenderness clinically improved. continue ambulation and ng suction f/u abd series in am Selected Entries 02/09/18 08:22 Temperature 99.0 F Pulse Rate 72 Respiratory 18 Rate Blood Pressure 123/77 Laboratory Tests 02/09/18 02/09/18 04:22 04:22 WBC 7.1 Hgb 11.7 Hct 35.1 Sodium 135 L Potassium 3.8 Chloride 99.8 Anion Gap 15 BUN 3 L Objective Vital Signs - 12hr 02/08/18 02/09/18 02/09/18 22:45 01:13 02:39 Temperature 100.4 F H Pulse Rate 74 Respiratory 18 20 20 Rate Blood Pressure Blood Pressure 119/76 [Left] O2 Sat by Pulse 99 Oximetry 02/09/18 02/09/18 02/09/18 06:00 07:18 08:22 Temperature 99.7 F H 99.0 F Pulse Rate 67 72 Respiratory 18 18 18 Rate Blood Pressure 123/77 Blood Pressure 122/83 [Left] O2 Sat by Pulse 99 99 Oximetry - Labs 02/09/18 04:22 02/09/18 04:22 Diabetes panel 02/09/18 Range/Units 04:22 Sodium 135 L (137-145) mmol/L Potassium 3.8 (3.6-5.0) mmol/L Chloride 99.8 (98-107) mmol/L Carbon Dioxide 24 (22-30) mmol/L BUN 3 L (7-17) mg/dL Creatinine 0.4 L (0.7-1.2) mg/dL Glucose 100 (65-100) mg/dL Calcium 8.0 L (8.4-10.2) mg/dL Calcium panel 02/09/18 Range/Units 04:22 Calcium 8.0 L (8.4-10.2) mg/dL Pituitary panel 02/09/18 Range/Units 04:22 Sodium 135 L (137-145) mmol/L Potassium 3.8 (3.6-5.0) mmol/L Chloride 99.8 (98-107) mmol/L Carbon Dioxide 24 (22-30) mmol/L BUN 3 L (7-17) mg/dL Creatinine 0.4 L (0.7-1.2) mg/dL Glucose 100 (65-100) mg/dL Calcium 8.0 L (8.4-10.2) mg/dL Adrenal panel 02/09/18 Range/Units 04:22 Sodium 135 L (137-145) mmol/L Potassium 3.8 (3.6-5.0) mmol/L Chloride 99.8 (98-107) mmol/L Carbon Dioxide 24 (22-30) mmol/L BUN 3 L (7-17) mg/dL Creatinine 0.4 L (0.7-1.2) mg/dL Glucose 100 (65-100) mg/dL Calcium 8.0 L (8.4-10.2) mg/dL
--- NOTE | 2018-02-09 10:45 | Progress Note ---
Assessment and Plan Assessment and plan: -Small bowel obstruction. s/p exploratory lap with ARCHIE and repair of ventral hernia. Empiric treatment with iv zosyn. Advance diet postoperatively per surgery. OOB and ambulate as shawn -Ventral hernia. As above -Hyperglycemia, not known to have DM, ?stress related. Resolved. Hemoglobin a1c normal. -Hyponatremia, resolved -Leukocytosis, resolved -DVT prophylaxis: Continue sq heparin -GI prophylaxis: Continue protonix full code History Interval history: Patient has not had flatus or a bowel movement. Hospitalist Physical - Constitutional Vitals: Temp Pulse Resp BP Pulse Ox 99.0 F 72 18 123/77 99 02/09/18 08:22 02/09/18 08:22 02/09/18 08:22 02/09/18 08:22 02/09/18 08:22 General appearance: Present: other (NG tube). Absent: no acute distress, mild distress, severe distress - EENT Eyes: Present: PERRL, EOM intact ENT: hearing intact, clear oral mucosa, dentition normal - Neck Neck: Present: supple, normal ROM - Respiratory Respiratory effort: normal Respiratory: bilateral: CTA - Cardiovascular Rhythm: regular Heart Sounds: Present: S1 & S2. Absent: gallop, rub - Extremities Extremities: no ischemia, No edema, Full ROM - Abdominal General gastrointestinal: soft, tender, non-distended, normal bowel sounds Localized gastrointestinal: tender: diffuse (appropriately) - Integumentary Integumentary: Present: clear, warm, dry - Neurologic Neurologic: CNII-XII intact, moves all extremities Results - Labs CBC & Chem 7: 02/09/18 04:22 02/09/18 04:22 Labs: Laboratory Last Values WBC 7.1 K/mm3 (4.5-11.0) 02/09/18 04:22 RBC 4.11 M/mm3 (3.65-5.03) 02/09/18 04:22 Hgb 11.7 gm/dl (10.1-14.3) 02/09/18 04:22 Hct 35.1 % (30.3-42.9) 02/09/18 04:22 MCV 85 fl (79-97) 02/09/18 04:22 MCH 29 pg (28-32) 02/09/18 04:22 MCHC 33 % (30-34) 02/09/18 04:22 RDW 12.9 % (13.2-15.2) L 02/09/18 04:22 Plt Count 241 K/mm3 (140-440) 02/09/18 04:22 Lymph % (Auto) 17.3 % (13.4-35.0) 02/09/18 04:22 [place] % (Auto) 10.4 % (0.0-7.3) H 02/09/18 04:22 Eos % (Auto) 1.3 % (0.0-4.3) 02/09/18 04:22 Baso % (Auto) 0.2 % (0.0-1.8) 02/09/18 04:22 Lymph # 1.2 K/mm3 (1.2-5.4) 02/09/18 04:22 [place] # 0.7 K/mm3 (0.0-0.8) 02/09/18 04:22 Eos # 0.1 K/mm3 (0.0-0.4) 02/09/18 04:22 Baso # 0.0 K/mm3 (0.0-0.1) 02/09/18 04:22 Add Manual Diff Complete 02/03/18 04:03 Total Counted 100 02/03/18 04:03 Seg Neutrophils % 70.8 % (40.0-70.0) H 02/09/18 04:22 Band Neutrophils % 0 % 02/03/18 04:03 Lymphocytes % (Manual) 8.0 % (13.4-35.0) L 02/03/18 04:03 Reactive Lymphs % (Man) 0 % 02/03/18 04:03 Monocytes % (Manual) 1.0 % (0.0-7.3) 02/03/18 04:03 Eosinophils % (Manual) 0 % (0.0-4.3) 02/03/18 04:03 Basophils % (Manual) 0 % (0.0-1.8) 02/03/18 04:03 Metamyelocytes % 0 % 02/03/18 04:03 Myelocytes % 0 % 02/03/18 04:03 Promyelocytes % 0 % 02/03/18 04:03 Blast Cells % 0 % 02/03/18 04:03 Nucleated RBC % Not Reportable 02/03/18 04:03 Seg Neutrophils # 5.0 K/mm3 (1.8-7.7) 02/09/18 04:22 Seg Neutrophils # Man 10.3 K/mm3 (1.8-7.7) H 02/03/18 04:03 Band Neutrophils # 0.0 K/mm3 02/03/18 04:03 Lymphocytes # (Manual) 0.9 K/mm3 (1.2-5.4) L 02/03/18 04:03 Abs React Lymphs (Man) 0.0 K/mm3 02/03/18 04:03 Monocytes # (Manual) 0.1 K/mm3 (0.0-0.8) 02/03/18 04:03 Eosinophils # (Manual) 0.0 K/mm3 (0.0-0.4) 02/03/18 04:03 Basophils # (Manual) 0.0 K/mm3 (0.0-0.1) 02/03/18 04:03 Metamyelocytes # 0.0 K/mm3 02/03/18 04:03 Myelocytes # 0.0 K/mm3 02/03/18 04:03 Promyelocytes # 0.0 K/mm3 02/03/18 04:03 Blast Cells # 0.0 K/mm3 02/03/18 04:03 WBC Morphology Not Reportable 02/03/18 04:03 Hypersegmented Neuts Not Reportable 02/03/18 04:03 Hyposegmented Neuts Not Reportable 02/03/18 04:03 Hypogranular Neuts Not Reportable 02/03/18 04:03 Smudge Cells Not Reportable 02/03/18 04:03 Toxic Granulation Not Reportable 02/03/18 04:03 Toxic Vacuolation Not Reportable 02/03/18 04:03 Dohle Bodies Not Reportable 02/03/18 04:03 Pelger-Huet Anomaly Not Reportable 02/03/18 04:03 Natasha Rods Not Reportable 02/03/18 04:03 Platelet Estimate Consistent w auto 02/03/18 04:03 Clumped Platelets Not Reportable 02/03/18 04:03 Plt Clumps, EDTA Not Reportable 02/03/18 04:03 Large Platelets Not Reportable 02/03/18 04:03 Giant Platelets Not Reportable 02/03/18 04:03 Platelet Satelliting Not Reportable 02/03/18 04:03 Plt Morphology Comment Not Reportable 02/03/18 04:03 RBC Morphology Normal 02/03/18 04:03 Dimorphic RBCs Not Reportable 02/03/18 04:03 Polychromasia Not Reportable 02/03/18 04:03 Hypochromasia Not Reportable 02/03/18 04:03 Poikilocytosis Not Reportable 02/03/18 04:03 Anisocytosis Not Reportable 02/03/18 04:03 Microcytosis Not Reportable 02/03/18 04:03 Macrocytosis Not Reportable 02/03/18 04:03 Spherocytes Not Reportable 02/03/18 04:03 Pappenheimer Bodies Not Reportable 02/03/18 04:03 Sickle Cells Not Reportable 02/03/18 04:03 Target Cells Not Reportable 02/03/18 04:03 Tear Drop Cells Not Reportable 02/03/18 04:03 Ovalocytes Not Reportable 02/03/18 04:03 Helmet Cells Not Reportable 02/03/18 04:03 [place] Bodies Not Reportable 02/03/18 04:03 [place] Rings Not Reportable 02/03/18 04:03 [place] Cells Not Reportable 02/03/18 04:03 Bite Cells Not Reportable 02/03/18 04:03 Crenated Cell Not Reportable 02/03/18 04:03 Elliptocytes Not Reportable 02/03/18 04:03 Acanthocytes (Spur) Not Reportable 02/03/18 04:03 Rouleaux Not Reportable 02/03/18 04:03 Hemoglobin C Crystals Not Reportable 02/03/18 04:03 Schistocytes Not Reportable 02/03/18 04:03 Malaria parasites Not Reportable 02/03/18 04:03 Jaun Bodies Not Reportable 02/03/18 04:03 Hem Pathologist Commnt No 02/03/18 04:03 Sodium 135 mmol/L (137-145) L 02/09/18 04:22 Potassium 3.8 mmol/L (3.6-5.0) 02/09/18 04:22 Chloride 99.8 mmol/L (98-107) 02/09/18 04:22 Carbon Dioxide 24 mmol/L (22-30) 02/09/18 04:22 Anion Gap 15 mmol/L 02/09/18 04:22 BUN 3 mg/dL (7-17) L 02/09/18 04:22 Creatinine 0.4 mg/dL (0.7-1.2) L 02/09/18 04:22 Estimated GFR > 60 ml/min 02/09/18 04:22 BUN/Creatinine Ratio 8 % 02/09/18 04:22 Glucose 100 mg/dL (65-100) 02/09/18 04:22 POC Glucose 131 (70-105) H 02/03/18 07:37 Hemoglobin A1c 5.6 % (4-6) 02/05/18 06:11 Lactic Acid 1.60 mmol/L (0.7-2.0) 02/04/18 15:13 Calcium 8.0 mg/dL (8.4-10.2) L 02/09/18 04:22 Total Bilirubin 0.70 mg/dL (0.1-1.2) 02/04/18 06:42 AST 20 units/L (5-40) 02/04/18 06:42 ALT 16 units/L (7-56) 02/04/18 06:42 Alkaline Phosphatase 40 units/L (35-129) 02/04/18 06:42 Total Protein 6.7 g/dL (6.3-8.2) D 02/04/18 06:42 Albumin 3.9 g/dL (3.9-5) 02/04/18 06:42 Albumin/Globulin Ratio 1.4 % 02/04/18 06:42 Amylase 50 units/L (27-131) 02/05/18 06:11 Lipase 16 units/L (13-60) 02/03/18 04:03 HCG, Qual Negative (Negative) 02/05/18 20:29 Urine Color Yellow (Yellow) 02/06/18 01:08 Urine Turbidity Clear (Clear) 02/06/18 01:08 Urine pH 5.0 (5.0-7.0) 02/06/18 01:08 Ur Specific [place] 1.027 (1.003-1.030) 02/06/18 01:08 Urine Protein 30 mg/dl mg/dL (Negative) 02/06/18 01:08 Urine Glucose (UA) 50 mg/dL (Negative) 02/06/18 01:08 Urine Ketones 80 mg/dL (Negative) 02/06/18 01:08 Urine Blood Sm (Negative) 02/06/18 01:08 Urine Nitrite Neg (Negative) 02/06/18 01:08 Urine Bilirubin Neg (Negative) 02/06/18 01:08 Urine Ictotest Negative (Negative) 02/03/18 03:52 Urine Urobilinogen < 2.0 mg/dL (<2.0) 02/06/18 01:08 Ur Leukocyte Esterase Neg (Negative) 02/06/18 01:08 Urine WBC (Auto) 4.0 /HPF (0.0-6.0) 02/06/18 01:08 Urine RBC (Auto) 1.0 /HPF (0.0-6.0) 02/06/18 01:08 U Epithel Cells (Auto) 4.0 /HPF (0-13.0) 02/06/18 01:08 Urine Mucus 3+ /HPF 02/06/18 01:08
[2018-02-09] MEDS: PROTONIX IV SCH (11:49)
[2018-02-09] MEDS: SODIUM CHLORIDE FLUSH SYRINGE 10 ML IV SCH ×2 (11:57→22:00)
[2018-02-09] MEDS: D5W/0.45% NACL/KCL 30 MEQ 30 MEQ/1,000 ML BAG IV SCH ×2 (13:04→23:11)
[2018-02-10] MEDS: DILAUDID IV PRN ×6 (00:45→20:06)
[2018-02-10 06:43] LABS: Basophils % (Auto) 0.3 % (0.0-1.8); Eosinophils # (Auto) 0.1 K/mm3 (0.0-0.4); Eosinophils % (Auto) 1.9 % (0.0-4.3); Hematocrit 33.6 % (30.3-42.9); Lymphocytes # (Auto) 0.8 K/mm3 (1.2-5.4); Mean Corpuscular HGB Conc 33 % (30-34); Mean Corpuscular Hemoglobin 28 pg (28-32); Mean Corpuscular Volume 86 fl (79-97); Monocytes # (Auto) 0.8 K/mm3 (0.0-0.8); Monocytes % (Auto) 11.8 % (0.0-7.3); Platelet Count 253 K/mm3 (140-440); Red Blood Count 3.91 M/mm3 (3.65-5.03); Red Cell Distribution Width 13.3 % (13.2-15.2)
[2018-02-10 07:08] LABS: BUN/Creatinine Ratio 8; Blood Urea Nitrogen 4 mg/dL (7-17); Calcium 8.4 mg/dL (8.4-10.2); Hemolysis Index 0
--- NOTE | 2018-02-10 08:36 | XRay Report ---
FINAL REPORT EXAM: XR ABD SERIES W CXR 1V HISTORY: sbo TECHNIQUE: PA chest radiograph, upright and supine views of the abdomen and pelvis PRIORS: None. FINDINGS: No mediastinal shift. Cardiac silhouette is not enlarged. No pneumothorax, effusion, or focal pulmonary opacity. Enteric tube is coiled in the region of the stomach with tip oriented superiorly just beneath the left hemidiaphragm. Right upper quadrant surgical clips are present. Midline laparotomy incision skin closure clips. Prominent loops of left abdominal small bowel with air-fluid levels. The gas and stool are present throughout the length of the colon extending into the pelvis. Pelvic phleboliths are noted. No pneumoperitoneum. IMPRESSION: No pneumoperitoneum. Enteric tube within the stomach. Dilated loops of bowel in the left abdomen appear similar to 02/06/2018. Differential diagnosis includes bowel obstruction and postoperative ileus.
--- NOTE | 2018-02-10 09:44 | Progress Note ---
Assessment and Plan Assessment and plan: -Small bowel obstruction. s/p exploratory lap with ARCHIE and repair of ventral hernia. Empiric treatment with iv zosyn. Advance diet postoperatively per surgery. OOB and ambulate as shawn -Ventral hernia. As above -Hyperglycemia, not known to have DM, ?stress related. Resolved. Hemoglobin a1c normal. -Hyponatremia, resolved -Leukocytosis, resolved -DVT prophylaxis: Continue sq heparin -GI prophylaxis: Continue protonix full code History Interval history: Patient reports flatus this morning. Hospitalist Physical - Constitutional Vitals: Temp Pulse Resp BP Pulse Ox 98.9 F 98 H 20 121/90 100 02/10/18 07:00 02/10/18 07:00 02/10/18 03:45 02/10/18 07:00 02/10/18 03:45 General appearance: Present: other (NG tube). Absent: no acute distress, mild distress, severe distress - EENT Eyes: Present: PERRL, EOM intact ENT: hearing intact, clear oral mucosa, dentition normal - Neck Neck: Present: supple, normal ROM - Respiratory Respiratory effort: normal Respiratory: bilateral: CTA - Cardiovascular Rhythm: regular Heart Sounds: Present: S1 & S2. Absent: gallop, rub - Extremities Extremities: no ischemia, No edema, Full ROM - Abdominal General gastrointestinal: soft, non-tender, non-distended, normal bowel sounds - Integumentary Integumentary: Present: clear, warm, dry - Neurologic Neurologic: CNII-XII intact, moves all extremities Results - Labs CBC & Chem 7: 02/10/18 05:36 02/10/18 05:36 Labs: Laboratory Last Values WBC 6.7 K/mm3 (4.5-11.0) 02/10/18 05:36 RBC 3.91 M/mm3 (3.65-5.03) 02/10/18 05:36 Hgb 11.0 gm/dl (10.1-14.3) 02/10/18 05:36 Hct 33.6 % (30.3-42.9) 02/10/18 05:36 MCV 86 fl (79-97) 02/10/18 05:36 MCH 28 pg (28-32) 02/10/18 05:36 MCHC 33 % (30-34) 02/10/18 05:36 RDW 13.3 % (13.2-15.2) 02/10/18 05:36 Plt Count 253 K/mm3 (140-440) 02/10/18 05:36 Lymph % (Auto) 12.0 % (13.4-35.0) L 02/10/18 05:36 [place] % (Auto) 11.8 % (0.0-7.3) H 02/10/18 05:36 Eos % (Auto) 1.9 % (0.0-4.3) 02/10/18 05:36 Baso % (Auto) 0.3 % (0.0-1.8) 02/10/18 05:36 Lymph # 0.8 K/mm3 (1.2-5.4) L 02/10/18 05:36 [place] # 0.8 K/mm3 (0.0-0.8) 02/10/18 05:36 Eos # 0.1 K/mm3 (0.0-0.4) 02/10/18 05:36 Baso # 0.0 K/mm3 (0.0-0.1) 02/10/18 05:36 Add Manual Diff Complete 02/03/18 04:03 Total Counted 100 02/03/18 04:03 Seg Neutrophils % 74.0 % (40.0-70.0) H 02/10/18 05:36 Band Neutrophils % 0 % 02/03/18 04:03 Lymphocytes % (Manual) 8.0 % (13.4-35.0) L 02/03/18 04:03 Reactive Lymphs % (Man) 0 % 02/03/18 04:03 Monocytes % (Manual) 1.0 % (0.0-7.3) 02/03/18 04:03 Eosinophils % (Manual) 0 % (0.0-4.3) 02/03/18 04:03 Basophils % (Manual) 0 % (0.0-1.8) 02/03/18 04:03 Metamyelocytes % 0 % 02/03/18 04:03 Myelocytes % 0 % 02/03/18 04:03 Promyelocytes % 0 % 02/03/18 04:03 Blast Cells % 0 % 02/03/18 04:03 Nucleated RBC % Not Reportable 02/03/18 04:03 Seg Neutrophils # 4.9 K/mm3 (1.8-7.7) 02/10/18 05:36 Seg Neutrophils # Man 10.3 K/mm3 (1.8-7.7) H 02/03/18 04:03 Band Neutrophils # 0.0 K/mm3 02/03/18 04:03 Lymphocytes # (Manual) 0.9 K/mm3 (1.2-5.4) L 02/03/18 04:03 Abs React Lymphs (Man) 0.0 K/mm3 02/03/18 04:03 Monocytes # (Manual) 0.1 K/mm3 (0.0-0.8) 02/03/18 04:03 Eosinophils # (Manual) 0.0 K/mm3 (0.0-0.4) 02/03/18 04:03 Basophils # (Manual) 0.0 K/mm3 (0.0-0.1) 02/03/18 04:03 Metamyelocytes # 0.0 K/mm3 02/03/18 04:03 Myelocytes # 0.0 K/mm3 02/03/18 04:03 Promyelocytes # 0.0 K/mm3 02/03/18 04:03 Blast Cells # 0.0 K/mm3 02/03/18 04:03 WBC Morphology Not Reportable 02/03/18 04:03 Hypersegmented Neuts Not Reportable 02/03/18 04:03 Hyposegmented Neuts Not Reportable 02/03/18 04:03 Hypogranular Neuts Not Reportable 02/03/18 04:03 Smudge Cells Not Reportable 02/03/18 04:03 Toxic Granulation Not Reportable 02/03/18 04:03 Toxic Vacuolation Not Reportable 02/03/18 04:03 Dohle Bodies Not Reportable 02/03/18 04:03 Pelger-Huet Anomaly Not Reportable 02/03/18 04:03 Natasha Rods Not Reportable 02/03/18 04:03 Platelet Estimate Consistent w auto 02/03/18 04:03 Clumped Platelets Not Reportable 02/03/18 04:03 Plt Clumps, EDTA Not Reportable 02/03/18 04:03 Large Platelets Not Reportable 02/03/18 04:03 Giant Platelets Not Reportable 02/03/18 04:03 Platelet Satelliting Not Reportable 02/03/18 04:03 Plt Morphology Comment Not Reportable 02/03/18 04:03 RBC Morphology Normal 02/03/18 04:03 Dimorphic RBCs Not Reportable 02/03/18 04:03 Polychromasia Not Reportable 02/03/18 04:03 Hypochromasia Not Reportable 02/03/18 04:03 Poikilocytosis Not Reportable 02/03/18 04:03 Anisocytosis Not Reportable 02/03/18 04:03 Microcytosis Not Reportable 02/03/18 04:03 Macrocytosis Not Reportable 02/03/18 04:03 Spherocytes Not Reportable 02/03/18 04:03 Pappenheimer Bodies Not Reportable 02/03/18 04:03 Sickle Cells Not Reportable 02/03/18 04:03 Target Cells Not Reportable 02/03/18 04:03 Tear Drop Cells Not Reportable 02/03/18 04:03 Ovalocytes Not Reportable 02/03/18 04:03 Helmet Cells Not Reportable 02/03/18 04:03 [place] Bodies Not Reportable 02/03/18 04:03 [place] Rings Not Reportable 02/03/18 04:03 [place] Cells Not Reportable 02/03/18 04:03 Bite Cells Not Reportable 02/03/18 04:03 Crenated Cell Not Reportable 02/03/18 04:03 Elliptocytes Not Reportable 02/03/18 04:03 Acanthocytes (Spur) Not Reportable 02/03/18 04:03 Rouleaux Not Reportable 02/03/18 04:03 Hemoglobin C Crystals Not Reportable 02/03/18 04:03 Schistocytes Not Reportable 02/03/18 04:03 Malaria parasites Not Reportable 02/03/18 04:03 Jaun Bodies Not Reportable 02/03/18 04:03 Hem Pathologist Commnt No 02/03/18 04:03 Sodium 138 mmol/L (137-145) 02/10/18 05:36 Potassium 4.2 mmol/L (3.6-5.0) 02/10/18 05:36 Chloride 101.3 mmol/L (98-107) 02/10/18 05:36 Carbon Dioxide 26 mmol/L (22-30) 02/10/18 05:36 Anion Gap 15 mmol/L 02/10/18 05:36 BUN 4 mg/dL (7-17) L 02/10/18 05:36 Creatinine 0.5 mg/dL (0.7-1.2) L 02/10/18 05:36 Estimated GFR > 60 ml/min 02/10/18 05:36 BUN/Creatinine Ratio 8 % 02/10/18 05:36 Glucose 106 mg/dL (65-100) H 02/10/18 05:36 POC Glucose 131 (70-105) H 02/03/18 07:37 Hemoglobin A1c 5.6 % (4-6) 02/05/18 06:11 Lactic Acid 1.60 mmol/L (0.7-2.0) 02/04/18 15:13 Calcium 8.4 mg/dL (8.4-10.2) 02/10/18 05:36 Total Bilirubin 0.70 mg/dL (0.1-1.2) 02/04/18 06:42 AST 20 units/L (5-40) 02/04/18 06:42 ALT 16 units/L (7-56) 02/04/18 06:42 Alkaline Phosphatase 40 units/L (35-129) 02/04/18 06:42 Total Protein 6.7 g/dL (6.3-8.2) D 02/04/18 06:42 Albumin 3.9 g/dL (3.9-5) 02/04/18 06:42 Albumin/Globulin Ratio 1.4 % 02/04/18 06:42 Amylase 50 units/L (27-131) 02/05/18 06:11 Lipase 16 units/L (13-60) 02/03/18 04:03 HCG, Qual Negative (Negative) 02/05/18 20:29 Urine Color Yellow (Yellow) 02/06/18 01:08 Urine Turbidity Clear (Clear) 02/06/18 01:08 Urine pH 5.0 (5.0-7.0) 02/06/18 01:08 Ur Specific [place] 1.027 (1.003-1.030) 02/06/18 01:08 Urine Protein 30 mg/dl mg/dL (Negative) 02/06/18 01:08 Urine Glucose (UA) 50 mg/dL (Negative) 02/06/18 01:08 Urine Ketones 80 mg/dL (Negative) 02/06/18 01:08 Urine Blood Sm (Negative) 02/06/18 01:08 Urine Nitrite Neg (Negative) 02/06/18 01:08 Urine Bilirubin Neg (Negative) 02/06/18 01:08 Urine Ictotest Negative (Negative) 02/03/18 03:52 Urine Urobilinogen < 2.0 mg/dL (<2.0) 02/06/18 01:08 Ur Leukocyte Esterase Neg (Negative) 02/06/18 01:08 Urine WBC (Auto) 4.0 /HPF (0.0-6.0) 02/06/18 01:08 Urine RBC (Auto) 1.0 /HPF (0.0-6.0) 02/06/18 01:08 U Epithel Cells (Auto) 4.0 /HPF (0-13.0) 02/06/18 01:08 Urine Mucus 3+ /HPF 02/06/18 01:08
[2018-02-10] MEDS: PROTONIX IV SCH (11:02)
--- NOTE | 2018-02-10 11:11 | Progress Note ---
Assessment and Plan POD # 4 Pt status quo. no compl. NG - 400 cc ambulating down halls. small amt of flatus last night Abd - decreased distention. non tender. very hypoactive BS Abd series - ileus pattern stable clinically improving continues present care Selected Entries 02/10/18 02/10/18 03:45 07:00 Temperature 98.9 F Pulse Rate 76 Blood Pressure 121/90 [Left] Laboratory Tests 02/10/18 02/10/18 05:36 05:36 WBC 6.7 Hgb 11.0 Hct 33.6 Sodium 138 Potassium 4.2 Chloride 101.3 Carbon Dioxide 26 Anion Gap 15 BUN 4 L Objective Vital Signs - 12hr 02/09/18 02/10/18 02/10/18 23:10 00:38 00:59 Temperature 99 F 99.7 F H Pulse Rate 70 Respiratory 20 Rate Blood Pressure 125/90 Blood Pressure [Left] O2 Sat by Pulse 100 Oximetry 02/10/18 02/10/18 02/10/18 03:45 04:04 07:00 Temperature 99.4 F 98.9 F Pulse Rate 76 98 H Respiratory 20 Rate Blood Pressure 124/88 Blood Pressure 121/90 [Left] O2 Sat by Pulse 100 Oximetry - Labs 02/10/18 05:36 02/10/18 05:36 Diabetes panel 02/10/18 Range/Units 05:36 Sodium 138 (137-145) mmol/L Potassium 4.2 (3.6-5.0) mmol/L Chloride 101.3 (98-107) mmol/L Carbon Dioxide 26 (22-30) mmol/L BUN 4 L (7-17) mg/dL Creatinine 0.5 L (0.7-1.2) mg/dL Glucose 106 H (65-100) mg/dL Calcium 8.4 (8.4-10.2) mg/dL Calcium panel 02/10/18 Range/Units 05:36 Calcium 8.4 (8.4-10.2) mg/dL Pituitary panel 02/10/18 Range/Units 05:36 Sodium 138 (137-145) mmol/L Potassium 4.2 (3.6-5.0) mmol/L Chloride 101.3 (98-107) mmol/L Carbon Dioxide 26 (22-30) mmol/L BUN 4 L (7-17) mg/dL Creatinine 0.5 L (0.7-1.2) mg/dL Glucose 106 H (65-100) mg/dL Calcium 8.4 (8.4-10.2) mg/dL Adrenal panel 02/10/18 Range/Units 05:36 Sodium 138 (137-145) mmol/L Potassium 4.2 (3.6-5.0) mmol/L Chloride 101.3 (98-107) mmol/L Carbon Dioxide 26 (22-30) mmol/L BUN 4 L (7-17) mg/dL Creatinine 0.5 L (0.7-1.2) mg/dL Glucose 106 H (65-100) mg/dL Calcium 8.4 (8.4-10.2) mg/dL
[2018-02-10] MEDS: D5W/0.45% NACL/KCL 30 MEQ 30 MEQ/1,000 ML BAG IV SCH ×2 (14:03→23:04)
[2018-02-10] MEDS: SODIUM CHLORIDE FLUSH SYRINGE 10 ML IV SCH (22:00)
[2018-02-11] MEDS ORDERED: CHLORASEPTIC MM PRN (00:01)
[2018-02-11] MEDS: DILAUDID IV PRN (00:46)
[2018-02-11] MEDS: MORPHINE IV PRN ×3 (03:59→20:37)
[2018-02-11 06:14] LABS: Basophils % (Auto) 0.4 % (0.0-1.8); Eosinophils # (Auto) 0.1 K/mm3 (0.0-0.4); Eosinophils % (Auto) 1.6 % (0.0-4.3); Hematocrit 34.3 % (30.3-42.9); Hemoglobin 11.7 gm/dl (10.1-14.3); Lymphocytes # (Auto) 1.5 K/mm3 (1.2-5.4); Lymphocytes % (Auto) 21.5 % (13.4-35.0); Mean Corpuscular HGB Conc 34 % (30-34); Mean Corpuscular Hemoglobin 29 pg (28-32); Mean Corpuscular Volume 84 fl (79-97); Monocytes % (Auto) 14.7 % (0.0-7.3); Platelet Count 306 K/mm3 (140-440); Red Blood Count 4.06 M/mm3 (3.65-5.03); Red Cell Distribution Width 13.5 % (13.2-15.2)
[2018-02-11 06:45] LABS: BUN/Creatinine Ratio 8; Blood Urea Nitrogen 4 mg/dL (7-17); Calcium 8.6 mg/dL (8.4-10.2); Hemolysis Index 1
[2018-02-11] MEDS: PROTONIX IV SCH (09:30)
[2018-02-11] MEDS: SODIUM CHLORIDE FLUSH SYRINGE 10 ML IV SCH (09:31)
--- NOTE | 2018-02-11 12:35 | Progress Note ---
Assessment and Plan -Small bowel obstruction. s/p exploratory lap with Lysis of adhesion and repair of ventral hernia. Empiric treatment with iv zosyn. Advance diet postoperatively per surgery. OOB and ambulate as shawn -Ventral hernia. As above -Hyperglycemia, not known to have DM, ?stress related. Resolved. Hemoglobin a1c normal. -Hyponatremia, resolved -Leukocytosis, resolved -DVT prophylaxis: Continue sq heparin -GI prophylaxis: Continue protonix full code Subjective Date of service: 02/11/18 Principal diagnosis: Small bowel obstruction Interval history: no fever, nausea or vomiting Objective - Constitutional Vitals: Vital Signs - 12hr 02/11/18 02/11/18 02/11/18 00:44 03:30 03:59 Temperature 99.4 F 98.9 F Pulse Rate 65 Respiratory 20 20 20 Rate Blood Pressure 132/85 Blood Pressure 132/85 [Left] O2 Sat by Pulse 100 Oximetry 02/11/18 02/11/18 02/11/18 06:19 07:45 11:58 Temperature 98.9 F 99.4 F 99.4 F Pulse Rate 65 66 70 Respiratory 18 18 Rate Blood Pressure 120/75 129/79 Blood Pressure [Left] O2 Sat by Pulse 98 100 Oximetry General appearance: Present: no acute distress, well-nourished - EENT Eyes: PERRL, EOM intact Ears: bilateral: normal - Neck Neck: supple, normal ROM - Respiratory Respiratory effort: normal Respiratory: bilateral: diminished - Cardiovascular Rhythm: regular Heart Sounds: Present: S1 & S2. Absent: gallop, rub Extremities: pulses intact, No edema, normal color, Full ROM - Gastrointestinal General gastrointestinal: Present: soft, non-tender, non-distended, normal bowel sounds - Integumentary Integumentary: clear, warm, dry - Musculoskeletal Musculoskeletal: strength equal bilaterally - Neurologic Neurologic: moves all extremities - Psychiatric Psychiatric: memory intact, appropriate mood/affect, intact judgment & insight - Labs CBC & Chem 7: 02/11/18 04:55 02/11/18 04:55 Labs: Abnormal lab results 02/11/18 02/11/18 Range/Units 04:55 04:55 [place] % (Auto) 14.7 H (0.0-7.3) % [place] # 1.0 H (0.0-0.8) K/mm3 BUN 4 L (7-17) mg/dL Creatinine 0.5 L (0.7-1.2) mg/dL Glucose 101 H (65-100) mg/dL
[2018-02-11] MEDS ORDERED: DULCOLAX PR ONE (14:22)
--- NOTE | 2018-02-11 14:22 | Progress Note ---
Assessment and Plan POD # 5 Pt status quo. minimal flatus Abd softer. non tender. hypoactive BS stable dulcolax supp today improving ileus repeat abd series in am Selected Entries 02/11/18 11:58 Temperature 99.4 F Pulse Rate 70 Respiratory 18 Rate Blood Pressure 129/79 Laboratory Tests 02/11/18 02/11/18 04:55 04:55 WBC 7.0 Hgb 11.7 Hct 34.3 Sodium 138 Potassium 4.3 Chloride 99.9 Carbon Dioxide 26 BUN 4 L Creatinine 0.5 L Objective Vital Signs - 12hr 02/11/18 02/11/18 02/11/18 03:30 03:59 06:19 Temperature 98.9 F 98.9 F Pulse Rate 65 65 Respiratory 20 20 Rate Blood Pressure 132/85 Blood Pressure 132/85 [Left] O2 Sat by Pulse 100 Oximetry 02/11/18 02/11/18 07:45 11:58 Temperature 99.4 F 99.4 F Pulse Rate 66 70 Respiratory 18 18 Rate Blood Pressure 120/75 129/79 Blood Pressure [Left] O2 Sat by Pulse 98 100 Oximetry - Labs 02/11/18 04:55 02/11/18 04:55 Diabetes panel 02/11/18 Range/Units 04:55 Sodium 138 (137-145) mmol/L Potassium 4.3 (3.6-5.0) mmol/L Chloride 99.9 (98-107) mmol/L Carbon Dioxide 26 (22-30) mmol/L BUN 4 L (7-17) mg/dL Creatinine 0.5 L (0.7-1.2) mg/dL Glucose 101 H (65-100) mg/dL Calcium 8.6 (8.4-10.2) mg/dL Calcium panel 02/11/18 Range/Units 04:55 Calcium 8.6 (8.4-10.2) mg/dL Pituitary panel 02/11/18 Range/Units 04:55 Sodium 138 (137-145) mmol/L Potassium 4.3 (3.6-5.0) mmol/L Chloride 99.9 (98-107) mmol/L Carbon Dioxide 26 (22-30) mmol/L BUN 4 L (7-17) mg/dL Creatinine 0.5 L (0.7-1.2) mg/dL Glucose 101 H (65-100) mg/dL Calcium 8.6 (8.4-10.2) mg/dL Adrenal panel 02/11/18 Range/Units 04:55 Sodium 138 (137-145) mmol/L Potassium 4.3 (3.6-5.0) mmol/L Chloride 99.9 (98-107) mmol/L Carbon Dioxide 26 (22-30) mmol/L BUN 4 L (7-17) mg/dL Creatinine 0.5 L (0.7-1.2) mg/dL Glucose 101 H (65-100) mg/dL Calcium 8.6 (8.4-10.2) mg/dL
[2018-02-11] MEDS: D5W/0.45% NACL/KCL 30 MEQ 30 MEQ/1,000 ML BAG IV SCH (15:23)
[2018-02-11] MEDS: ZOFRAN IV PRN (20:37)
[2018-02-12] MEDS: SODIUM CHLORIDE FLUSH SYRINGE 10 ML IV SCH ×2 (01:15→22:00)
[2018-02-12] MEDS: D5W/0.45% NACL/KCL 30 MEQ 30 MEQ/1,000 ML BAG IV SCH (05:44)
--- NOTE | 2018-02-12 08:00 | XRay Report ---
ABDOMINAL SERIES: History: Small bowel obstruction. Improvement in the dilated loops of small bowel in the left abdomen is demonstrated since 02/10/18. The bowel gas pattern is near normal on today's exam. Gas and stool is identified in the colon. The nasogastric tube has been removed. Single view of the chest remains normal. IMPRESSION: Further improvement in the postoperative ileus or mildly dilated loops of small bowel left abdomen. Near-normal intestinal gas pattern.
--- NOTE | 2018-02-12 08:55 | Progress Note ---
Assessment and Plan Assessment and plan: 42 YO Female with ventral hernia presents to ED for evaluation. Pt states that she has experienced pain in her abdomen. Pain is 10/10, periumbilical, radiates to both sides, and is associated with nausea. Pt seen and evaluated in ED and found to have evidence of bowel obstruction on CT scan. Surgical team consulted in ED. NGT placed. Pt admitted to medical floor. Small bowel obstruction. s/p exploratory lap with Lysis of adhesion and repair of ventral hernia. - Advance diet postoperatively per surgery. OOB and ambulate as shawn -Ventral hernia. As above -Hyperglycemia, not known to have DM, ?stress related. Resolved. Hemoglobin a1c normal. -Hyponatremia, resolved -Leukocytosis, resolved -DVT prophylaxis: Continue sq heparin -GI prophylaxis: Continue protonix full code History Interval history: Patient has 2 bowel movement this morning, pass gas. Hospitalist Physical - Physical exam Narrative exam: Not in cardiopulmonary distress. The patient appeared well nourished and normally developed. Vital signs as documented. Head exam is unremarkable. No scleral icterus . Neck is without jugular venous distension, thyromegaly, or carotid bruits. Lungs are clear to auscultation. Cardiac exam reveals regular rate and Rhythm. First and second heart sounds normal. No murmurs, rubs or gallops. Abdominal exam reveals normal bowel sounds, clean surgical dressing. Extremities are nonedematous and both femoral and pedal pulses are normal. WASHER ENGINEER: Alert and oriented 3. No focal weakness. - Constitutional Vitals: Temp Pulse Resp BP Pulse Ox 99.6 F 71 18 137/83 100 02/11/18 21:02 02/11/18 21:02 02/11/18 21:02 02/11/18 21:02 02/11/18 15:56 General appearance: Present: no acute distress, well-nourished Results - Labs CBC & Chem 7: 02/11/18 04:55 02/11/18 04:55 Labs: Laboratory Last Values WBC 7.0 K/mm3 (4.5-11.0) 02/11/18 04:55 RBC 4.06 M/mm3 (3.65-5.03) 02/11/18 04:55 Hgb 11.7 gm/dl (10.1-14.3) 02/11/18 04:55 Hct 34.3 % (30.3-42.9) 02/11/18 04:55 MCV 84 fl (79-97) 02/11/18 04:55 MCH 29 pg (28-32) 02/11/18 04:55 MCHC 34 % (30-34) 02/11/18 04:55 RDW 13.5 % (13.2-15.2) 02/11/18 04:55 Plt Count 306 K/mm3 (140-440) 02/11/18 04:55 Lymph % (Auto) 21.5 % (13.4-35.0) 02/11/18 04:55 [place] % (Auto) 14.7 % (0.0-7.3) H 02/11/18 04:55 Eos % (Auto) 1.6 % (0.0-4.3) 02/11/18 04:55 Baso % (Auto) 0.4 % (0.0-1.8) 02/11/18 04:55 Lymph # 1.5 K/mm3 (1.2-5.4) 02/11/18 04:55 [place] # 1.0 K/mm3 (0.0-0.8) H 02/11/18 04:55 Eos # 0.1 K/mm3 (0.0-0.4) 02/11/18 04:55 Baso # 0.0 K/mm3 (0.0-0.1) 02/11/18 04:55 Add Manual Diff Complete 02/03/18 04:03 Total Counted 100 02/03/18 04:03 Seg Neutrophils % 61.8 % (40.0-70.0) 02/11/18 04:55 Band Neutrophils % 0 % 02/03/18 04:03 Lymphocytes % (Manual) 8.0 % (13.4-35.0) L 02/03/18 04:03 Reactive Lymphs % (Man) 0 % 02/03/18 04:03 Monocytes % (Manual) 1.0 % (0.0-7.3) 02/03/18 04:03 Eosinophils % (Manual) 0 % (0.0-4.3) 02/03/18 04:03 Basophils % (Manual) 0 % (0.0-1.8) 02/03/18 04:03 Metamyelocytes % 0 % 02/03/18 04:03 Myelocytes % 0 % 02/03/18 04:03 Promyelocytes % 0 % 02/03/18 04:03 Blast Cells % 0 % 02/03/18 04:03 Nucleated RBC % Not Reportable 02/03/18 04:03 Seg Neutrophils # 4.3 K/mm3 (1.8-7.7) 02/11/18 04:55 Seg Neutrophils # Man 10.3 K/mm3 (1.8-7.7) H 02/03/18 04:03 Band Neutrophils # 0.0 K/mm3 02/03/18 04:03 Lymphocytes # (Manual) 0.9 K/mm3 (1.2-5.4) L 02/03/18 04:03 Abs React Lymphs (Man) 0.0 K/mm3 02/03/18 04:03 Monocytes # (Manual) 0.1 K/mm3 (0.0-0.8) 02/03/18 04:03 Eosinophils # (Manual) 0.0 K/mm3 (0.0-0.4) 02/03/18 04:03 Basophils # (Manual) 0.0 K/mm3 (0.0-0.1) 02/03/18 04:03 Metamyelocytes # 0.0 K/mm3 02/03/18 04:03 Myelocytes # 0.0 K/mm3 02/03/18 04:03 Promyelocytes # 0.0 K/mm3 02/03/18 04:03 Blast Cells # 0.0 K/mm3 02/03/18 04:03 WBC Morphology Not Reportable 02/03/18 04:03 Hypersegmented Neuts Not Reportable 02/03/18 04:03 Hyposegmented Neuts Not Reportable 02/03/18 04:03 Hypogranular Neuts Not Reportable 02/03/18 04:03 Smudge Cells Not Reportable 02/03/18 04:03 Toxic Granulation Not Reportable 02/03/18 04:03 Toxic Vacuolation Not Reportable 02/03/18 04:03 Dohle Bodies Not Reportable 02/03/18 04:03 Pelger-Huet Anomaly Not Reportable 02/03/18 04:03 Natasha Rods Not Reportable 02/03/18 04:03 Platelet Estimate Consistent w auto 02/03/18 04:03 Clumped Platelets Not Reportable 02/03/18 04:03 Plt Clumps, EDTA Not Reportable 02/03/18 04:03 Large Platelets Not Reportable 02/03/18 04:03 Giant Platelets Not Reportable 02/03/18 04:03 Platelet Satelliting Not Reportable 02/03/18 04:03 Plt Morphology Comment Not Reportable 02/03/18 04:03 RBC Morphology Normal 02/03/18 04:03 Dimorphic RBCs Not Reportable 02/03/18 04:03 Polychromasia Not Reportable 02/03/18 04:03 Hypochromasia Not Reportable 02/03/18 04:03 Poikilocytosis Not Reportable 02/03/18 04:03 Anisocytosis Not Reportable 02/03/18 04:03 Microcytosis Not Reportable 02/03/18 04:03 Macrocytosis Not Reportable 02/03/18 04:03 Spherocytes Not Reportable 02/03/18 04:03 Pappenheimer Bodies Not Reportable 02/03/18 04:03 Sickle Cells Not Reportable 02/03/18 04:03 Target Cells Not Reportable 02/03/18 04:03 Tear Drop Cells Not Reportable 02/03/18 04:03 Ovalocytes Not Reportable 02/03/18 04:03 Helmet Cells Not Reportable 02/03/18 04:03 Perez-Shafer Bodies Not Reportable 02/03/18 04:03 [place] Rings Not Reportable 02/03/18 04:03 [place] Cells Not Reportable 02/03/18 04:03 Bite Cells Not Reportable 02/03/18 04:03 Crenated Cell Not Reportable 02/03/18 04:03 Elliptocytes Not Reportable 02/03/18 04:03 Acanthocytes (Spur) Not Reportable 02/03/18 04:03 Rouleaux Not Reportable 02/03/18 04:03 Hemoglobin C Crystals Not Reportable 02/03/18 04:03 Schistocytes Not Reportable 02/03/18 04:03 Malaria parasites Not Reportable 02/03/18 04:03 Jaun Bodies Not Reportable 02/03/18 04:03 Hem Pathologist Commnt No 02/03/18 04:03 Sodium 138 mmol/L (137-145) 02/11/18 04:55 Potassium 4.3 mmol/L (3.6-5.0) 02/11/18 04:55 Chloride 99.9 mmol/L (98-107) 02/11/18 04:55 Carbon Dioxide 26 mmol/L (22-30) 02/11/18 04:55 Anion Gap 16 mmol/L 02/11/18 04:55 BUN 4 mg/dL (7-17) L 02/11/18 04:55 Creatinine 0.5 mg/dL (0.7-1.2) L 02/11/18 04:55 Estimated GFR > 60 ml/min 02/11/18 04:55 BUN/Creatinine Ratio 8 % 02/11/18 04:55 Glucose 101 mg/dL (65-100) H 02/11/18 04:55 POC Glucose 131 (70-105) H 02/03/18 07:37 Hemoglobin A1c 5.6 % (4-6) 02/05/18 06:11 Lactic Acid 1.60 mmol/L (0.7-2.0) 02/04/18 15:13 Calcium 8.6 mg/dL (8.4-10.2) 02/11/18 04:55 Total Bilirubin 0.70 mg/dL (0.1-1.2) 02/04/18 06:42 AST 20 units/L (5-40) 02/04/18 06:42 ALT 16 units/L (7-56) 02/04/18 06:42 Alkaline Phosphatase 40 units/L (35-129) 02/04/18 06:42 Total Protein 6.7 g/dL (6.3-8.2) D 02/04/18 06:42 Albumin 3.9 g/dL (3.9-5) 02/04/18 06:42 Albumin/Globulin Ratio 1.4 % 02/04/18 06:42 Amylase 50 units/L (27-131) 02/05/18 06:11 Lipase 16 units/L (13-60) 02/03/18 04:03 HCG, Qual Negative (Negative) 02/05/18 20:29 Urine Color Yellow (Yellow) 02/06/18 01:08 Urine Turbidity Clear (Clear) 02/06/18 01:08 Urine pH 5.0 (5.0-7.0) 02/06/18 01:08 Ur Specific [place] 1.027 (1.003-1.030) 02/06/18 01:08 Urine Protein 30 mg/dl mg/dL (Negative) 02/06/18 01:08 Urine Glucose (UA) 50 mg/dL (Negative) 02/06/18 01:08 Urine Ketones 80 mg/dL (Negative) 02/06/18 01:08 Urine Blood Sm (Negative) 02/06/18 01:08 Urine Nitrite Neg (Negative) 02/06/18 01:08 Urine Bilirubin Neg (Negative) 02/06/18 01:08 Urine Ictotest Negative (Negative) 02/03/18 03:52 Urine Urobilinogen < 2.0 mg/dL (<2.0) 02/06/18 01:08 Ur Leukocyte Esterase Neg (Negative) 02/06/18 01:08 Urine WBC (Auto) 4.0 /HPF (0.0-6.0) 02/06/18 01:08 Urine RBC (Auto) 1.0 /HPF (0.0-6.0) 02/06/18 01:08 U Epithel Cells (Auto) 4.0 /HPF (0-13.0) 02/06/18 01:08 Urine Mucus 3+ /HPF 02/06/18 01:08
[2018-02-12] MEDS: PEPCID IV SCH ×2 (10:33→23:53)
[2018-02-12] MEDS: MORPHINE IV PRN (14:03)
--- NOTE | 2018-02-12 14:41 | Progress Note ---
Assessment and Plan POD # 6 Pt had two BM's late evening. pulled her ng out herself early am Abd soft, non tender. incision clean & dry. +BS Abd series - normal gas pattern stable resolving ileus cl liq diet non carbonated Selected Entries 02/12/18 10:30 Temperature 98.8 F Pulse Rate 74 Respiratory 20 Rate Blood Pressure 129/79 [Left] Objective Vital Signs - 12hr 02/12/18 10:30 Temperature 98.8 F Pulse Rate 74 Respiratory 20 Rate Blood Pressure 129/79 [Left] O2 Sat by Pulse 100 Oximetry - Labs 02/11/18 04:55 02/11/18 04:55
[2018-02-13] MEDS: D5W/0.45% NACL/KCL 30 MEQ 30 MEQ/1,000 ML BAG IV SCH (01:25)
[2018-02-13] MEDS: MORPHINE IV PRN ×2 (01:43→23:53)
[2018-02-13 05:58] LABS: Hematocrit 35.1 % (30.3-42.9); Mean Corpuscular HGB Conc 34 % (30-34); Mean Corpuscular Hemoglobin 29 pg (28-32); Mean Corpuscular Volume 84 fl (79-97); Platelet Count 390 K/mm3 (140-440); Red Blood Count 4.17 M/mm3 (3.65-5.03)
[2018-02-13 06:21] LABS: BUN/Creatinine Ratio 5; Blood Urea Nitrogen 3 mg/dL (7-17); Calcium 8.9 mg/dL (8.4-10.2); Hemolysis Index 2
[2018-02-13 06:48] LABS: Total Cells Counted 100
[2018-02-13 06:49] LABS: Basophils % (Manual) 0 % (0.0-1.8); Platelet Estimate Consistent w Auto
--- NOTE | 2018-02-13 07:41 | Progress Note ---
Assessment and Plan POD # 7 Pt in very good spirits today. smiling. shawn cl liq without incident Abd soft, non tender, stable advance to low fat full liq diet today d/c david probable d/c in am after advancing to low fat solid diet breakfast Selected Entries 02/13/18 05:00 Temperature 98.7 F Pulse Rate 63 Respiratory 20 Rate Blood Pressure 120/77 Laboratory Tests 02/13/18 02/13/18 05:37 05:37 WBC 4.6 Hgb 12.0 Hct 35.1 Sodium 138 Potassium 4.5 Chloride 99.8 BUN 3 L Creatinine 0.6 L Objective Vital Signs - 12hr 02/12/18 02/12/18 02/13/18 19:41 19:42 00:03 Temperature 98.7 F Pulse Rate 73 74 75 Respiratory 18 20 Rate Blood Pressure 133/91 126/90 O2 Sat by Pulse 99 100 100 Oximetry 02/13/18 02/13/18 02/13/18 00:04 00:10 05:00 Temperature 99.0 F 98.7 F Pulse Rate 75 63 Respiratory 20 Rate Blood Pressure 120/77 O2 Sat by Pulse 100 100 Oximetry - Labs 02/13/18 05:37 02/13/18 05:37 Diabetes panel 02/13/18 Range/Units 05:37 Sodium 138 (137-145) mmol/L Potassium 4.5 (3.6-5.0) mmol/L Chloride 99.8 (98-107) mmol/L Carbon Dioxide 27 (22-30) mmol/L BUN 3 L (7-17) mg/dL Creatinine 0.6 L (0.7-1.2) mg/dL Glucose 100 (65-100) mg/dL Calcium 8.9 (8.4-10.2) mg/dL Calcium panel 02/13/18 Range/Units 05:37 Calcium 8.9 (8.4-10.2) mg/dL Pituitary panel 02/13/18 Range/Units 05:37 Sodium 138 (137-145) mmol/L Potassium 4.5 (3.6-5.0) mmol/L Chloride 99.8 (98-107) mmol/L Carbon Dioxide 27 (22-30) mmol/L BUN 3 L (7-17) mg/dL Creatinine 0.6 L (0.7-1.2) mg/dL Glucose 100 (65-100) mg/dL Calcium 8.9 (8.4-10.2) mg/dL Adrenal panel 02/13/18 Range/Units 05:37 Sodium 138 (137-145) mmol/L Potassium 4.5 (3.6-5.0) mmol/L Chloride 99.8 (98-107) mmol/L Carbon Dioxide 27 (22-30) mmol/L BUN 3 L (7-17) mg/dL Creatinine 0.6 L (0.7-1.2) mg/dL Glucose 100 (65-100) mg/dL Calcium 8.9 (8.4-10.2) mg/dL
[2018-02-13] MEDS: PEPCID IV SCH ×2 (09:38→22:40)
[2018-02-13] MEDS: SODIUM CHLORIDE FLUSH SYRINGE 10 ML IV SCH ×4 (09:39→23:54)
--- NOTE | 2018-02-13 10:06 | Progress Note ---
Assessment and Plan Assessment and plan: 42 YO Female with ventral hernia presents to ED for evaluation. Pt states that she has experienced pain in her abdomen. Pain is 10/10, periumbilical, radiates to both sides, and is associated with nausea. Pt seen and evaluated in ED and found to have evidence of bowel obstruction on CT scan. Surgical team consulted in ED. NGT placed. Pt admitted to medical floor. Small bowel obstruction. s/p exploratory lap with Lysis of adhesion and repair of ventral hernia. - Patient tolerated liquid diet, will advance to solid diet tonight or tomorrow morning and discharge in AM -Ventral hernia. As above -Hyperglycemia, ?stress related. Resolved. Hemoglobin a1c normal. -Hyponatremia, resolved -Leukocytosis, resolved -DVT prophylaxis: Continue sq heparin -GI prophylaxis: Continue protonix full code Disposition possible discharge tomorrow History Interval history: Patient tolerated full liquid diet and will advance to regular diet. Hospitalist Physical - Physical exam Narrative exam: Not in cardiopulmonary distress. The patient appeared well nourished and normally developed. Vital signs as documented. Head exam is unremarkable. No scleral icterus . Neck is without jugular venous distension, thyromegaly, or carotid bruits. Lungs are clear to auscultation. Cardiac exam reveals regular rate and Rhythm. First and second heart sounds normal. No murmurs, rubs or gallops. Abdominal exam reveals normal bowel sounds, clean surgical dressing. Extremities are nonedematous and both femoral and pedal pulses are normal. 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 No focal weakness. - Constitutional Vitals: Temp Pulse Resp BP Pulse Ox 98.8 F 60 20 113/70 100 02/13/18 07:27 02/13/18 07:27 02/13/18 07:27 02/13/18 07:27 02/13/18 07:27 General appearance: Present: no acute distress, well-nourished Results - Labs CBC & Chem 7: 02/13/18 05:37 02/13/18 05:37 Labs: Laboratory Last Values WBC 4.6 K/mm3 (4.5-11.0) 02/13/18 05:37 RBC 4.17 M/mm3 (3.65-5.03) 02/13/18 05:37 Hgb 12.0 gm/dl (10.1-14.3) 02/13/18 05:37 Hct 35.1 % (30.3-42.9) 02/13/18 05:37 MCV 84 fl (79-97) 02/13/18 05:37 MCH 29 pg (28-32) 02/13/18 05:37 MCHC 34 % (30-34) 02/13/18 05:37 RDW 13.0 % (13.2-15.2) L 02/13/18 05:37 Plt Count 390 K/mm3 (140-440) 02/13/18 05:37 Lymph % (Auto) 21.5 % (13.4-35.0) 02/11/18 04:55 [place] % (Auto) Disbursing Agent 02/13/18 05:37 Eos % (Auto) 1.6 % (0.0-4.3) 02/11/18 04:55 Baso % (Auto) 0.4 % (0.0-1.8) 02/11/18 04:55 Lymph # 1.5 K/mm3 (1.2-5.4) 02/11/18 04:55 [place] # 1.0 K/mm3 (0.0-0.8) H 02/11/18 04:55 Eos # 0.1 K/mm3 (0.0-0.4) 02/11/18 04:55 Baso # 0.0 K/mm3 (0.0-0.1) 02/11/18 04:55 Add Manual Diff Complete 02/13/18 05:37 Total Counted 100 02/13/18 05:37 Seg Neutrophils % 61.8 % (40.0-70.0) 02/11/18 04:55 Seg Neuts % (Manual) 45.0 % (40.0-70.0) 02/13/18 05:37 Band Neutrophils % 0 % 02/13/18 05:37 Lymphocytes % (Manual) 40.0 % (13.4-35.0) H 02/13/18 05:37 Reactive Lymphs % (Man) 0 % 02/13/18 05:37 Monocytes % (Manual) 14.0 % (0.0-7.3) H 02/13/18 05:37 Eosinophils % (Manual) 1.0 % (0.0-4.3) 02/13/18 05:37 Basophils % (Manual) 0 % (0.0-1.8) 02/13/18 05:37 Metamyelocytes % 0 % 02/13/18 05:37 Myelocytes % 0 % 02/13/18 05:37 Promyelocytes % 0 % 02/13/18 05:37 Blast Cells % 0 % 02/13/18 05:37 Nucleated RBC % 1.0 % (0.0-0.9) H 02/13/18 05:37 Seg Neutrophils # 4.3 K/mm3 (1.8-7.7) 02/11/18 04:55 Seg Neutrophils # Man 2.1 K/mm3 (1.8-7.7) 02/13/18 05:37 Band Neutrophils # 0.0 K/mm3 02/13/18 05:37 Lymphocytes # (Manual) 1.8 K/mm3 (1.2-5.4) 02/13/18 05:37 Abs React Lymphs (Man) 0.0 K/mm3 02/13/18 05:37 Monocytes # (Manual) 0.6 K/mm3 (0.0-0.8) 02/13/18 05:37 Eosinophils # (Manual) 0.0 K/mm3 (0.0-0.4) 02/13/18 05:37 Basophils # (Manual) 0.0 K/mm3 (0.0-0.1) 02/13/18 05:37 Metamyelocytes # 0.0 K/mm3 02/13/18 05:37 Myelocytes # 0.0 K/mm3 02/13/18 05:37 Promyelocytes # 0.0 K/mm3 02/13/18 05:37 Blast Cells # 0.0 K/mm3 02/13/18 05:37 WBC Morphology Not Reportable 02/13/18 05:37 Hypersegmented Neuts Not Reportable 02/13/18 05:37 Hyposegmented Neuts Not Reportable 02/13/18 05:37 Hypogranular Neuts Not Reportable 02/13/18 05:37 Smudge Cells Not Reportable 02/13/18 05:37 Toxic Granulation Not Reportable 02/13/18 05:37 Toxic Vacuolation Not Reportable 02/13/18 05:37 Dohle Bodies Not Reportable 02/13/18 05:37 Pelger-Huet Anomaly Not Reportable 02/13/18 05:37 Natasha Rods Not Reportable 02/13/18 05:37 Platelet Estimate Consistent w auto 02/13/18 05:37 Clumped Platelets Not Reportable 02/13/18 05:37 Plt Clumps, EDTA Not Reportable 02/13/18 05:37 Large Platelets Not Reportable 02/13/18 05:37 Giant Platelets Not Reportable 02/13/18 05:37 Platelet Satelliting Not Reportable 02/13/18 05:37 Plt Morphology Comment Not Reportable 02/13/18 05:37 RBC Morphology Not Reportable 02/13/18 05:37 Dimorphic RBCs Not Reportable 02/13/18 05:37 Polychromasia Not Reportable 02/13/18 05:37 Hypochromasia Not Reportable 02/13/18 05:37 Poikilocytosis Not Reportable 02/13/18 05:37 Anisocytosis Not Reportable 02/13/18 05:37 Microcytosis Not Reportable 02/13/18 05:37 Macrocytosis Not Reportable 02/13/18 05:37 Spherocytes Not Reportable 02/13/18 05:37 Pappenheimer Bodies Not Reportable 02/13/18 05:37 Sickle Cells Not Reportable 02/13/18 05:37 Target Cells Not Reportable 02/13/18 05:37 Tear Drop Cells Not Reportable 02/13/18 05:37 Ovalocytes Not Reportable 02/13/18 05:37 Helmet Cells Not Reportable 02/13/18 05:37 Perez-Labette Bodies Not Reportable 02/13/18 05:37 [place] Rings Not Reportable 02/13/18 05:37 [place] Cells Not Reportable 02/13/18 05:37 Bite Cells Not Reportable 02/13/18 05:37 Crenated Cell Not Reportable 02/13/18 05:37 Elliptocytes Not Reportable 02/13/18 05:37 Acanthocytes (Spur) Not Reportable 02/13/18 05:37 Rouleaux Not Reportable 02/13/18 05:37 Hemoglobin C Crystals Not Reportable 02/13/18 05:37 Schistocytes Not Reportable 02/13/18 05:37 Malaria parasites Not Reportable 02/13/18 05:37 Jaun Bodies Not Reportable 02/13/18 05:37 Hem Pathologist Commnt No 02/13/18 05:37 Sodium 138 mmol/L (137-145) 02/13/18 05:37 Potassium 4.5 mmol/L (3.6-5.0) 02/13/18 05:37 Chloride 99.8 mmol/L (98-107) 02/13/18 05:37 Carbon Dioxide 27 mmol/L (22-30) 02/13/18 05:37 Anion Gap 16 mmol/L 02/13/18 05:37 BUN 3 mg/dL (7-17) L 02/13/18 05:37 Creatinine 0.6 mg/dL (0.7-1.2) L 02/13/18 05:37 Estimated GFR > 60 ml/min 02/13/18 05:37 BUN/Creatinine Ratio 5 % 02/13/18 05:37 Glucose 100 mg/dL (65-100) 02/13/18 05:37 POC Glucose 131 (70-105) H 02/03/18 07:37 Hemoglobin A1c 5.6 % (4-6) 02/05/18 06:11 Lactic Acid 1.60 mmol/L (0.7-2.0) 02/04/18 15:13 Calcium 8.9 mg/dL (8.4-10.2) 02/13/18 05:37 Total Bilirubin 0.70 mg/dL (0.1-1.2) 02/04/18 06:42 AST 20 units/L (5-40) 02/04/18 06:42 ALT 16 units/L (7-56) 02/04/18 06:42 Alkaline Phosphatase 40 units/L (35-129) 02/04/18 06:42 Total Protein 6.7 g/dL (6.3-8.2) D 02/04/18 06:42 Albumin 3.9 g/dL (3.9-5) 02/04/18 06:42 Albumin/Globulin Ratio 1.4 % 02/04/18 06:42 Amylase 50 units/L (27-131) 02/05/18 06:11 Lipase 16 units/L (13-60) 02/03/18 04:03 HCG, Qual Negative (Negative) 02/05/18 20:29 Urine Color Yellow (Yellow) 02/06/18 01:08 Urine Turbidity Clear (Clear) 02/06/18 01:08 Urine pH 5.0 (5.0-7.0) 02/06/18 01:08 Ur Specific [place] 1.027 (1.003-1.030) 02/06/18 01:08 Urine Protein 30 mg/dl mg/dL (Negative) 02/06/18 01:08 Urine Glucose (UA) 50 mg/dL (Negative) 02/06/18 01:08 Urine Ketones 80 mg/dL (Negative) 02/06/18 01:08 Urine Blood Sm (Negative) 02/06/18 01:08 Urine Nitrite Neg (Negative) 02/06/18 01:08 Urine Bilirubin Neg (Negative) 02/06/18 01:08 Urine Ictotest Negative (Negative) 02/03/18 03:52 Urine Urobilinogen < 2.0 mg/dL (<2.0) 02/06/18 01:08 Ur Leukocyte Esterase Neg (Negative) 02/06/18 01:08 Urine WBC (Auto) 4.0 /HPF (0.0-6.0) 02/06/18 01:08 Urine RBC (Auto) 1.0 /HPF (0.0-6.0) 02/06/18 01:08 U Epithel Cells (Auto) 4.0 /HPF (0-13.0) 02/06/18 01:08 Urine Mucus 3+ /HPF 02/06/18 01:08
[2018-02-13] MEDS: ZOFRAN IV PRN (23:54)
[2018-02-14 09:14] VITALS: BP 135/89
[2018-02-14] MEDS: PEPCID IV SCH (10:04)
--- NOTE | 2018-02-14 10:29 | Discharge Summary ---
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 The patient appeared well nourished and normally developed. Vital signs as documented. Head exam is unremarkable. No scleral icterus . Neck is without jugular venous distension, thyromegaly, or carotid bruits. Lungs are clear to auscultation. Cardiac exam reveals regular rate and Rhythm. First and second heart sounds normal. No murmurs, rubs or gallops. Abdominal exam reveals normal bowel sounds, clean surgical dressing. Extremities are nonedematous and both femoral and pedal pulses are normal. 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 No focal weakness. - Constitutional Vitals: Temp Pulse Resp BP Pulse Ox 98 F 78 18 135/89 100 02/14/18 08:00 02/14/18 08:00 02/14/18 08:00 02/14/18 08:00 02/14/18 07:46 Plan Activity: no restrictions Weight Bearing Status: Full Weight Bearing Diet: regular Wound: per your surgeon's advice Additional Instructions: [facility] Follow up with: FELIX UP MD [Primary Care Provider] - 3-5 Days Prescriptions: HYDROcodone/APAP 5-325 [[place] 5/325] 1 each PO Q6HR PRN #12 tablet PRN Reason: Pain
--- NOTE | 2018-02-14 12:15 | Progress Note ---
Assessment and Plan Pt feeling well. shawn solid diet without compl. Abd soft, non tender stable for d/c today rto I wk Selected Entries 02/14/18 08:00 Temperature 98 F Pulse Rate 78 Respiratory 18 Rate Blood Pressure 135/89 [Left] Objective Vital Signs - 12hr 02/14/18 02/14/18 02/14/18 01:26 01:27 01:34 Temperature 98.6 F 98.6 F Pulse Rate 79 75 76 Respiratory 17 20 Rate Blood Pressure 110/71 110/71 Blood Pressure 110/71 [Left] O2 Sat by Pulse 100 100 100 Oximetry 02/14/18 02/14/18 02/14/18 05:20 05:26 07:46 Temperature 98.8 F Pulse Rate 62 71 Respiratory 17 Rate Blood Pressure 120/73 Blood Pressure [Left] O2 Sat by Pulse 99 100 Oximetry 02/14/18 08:00 Temperature 98 F Pulse Rate 78 Respiratory 18 Rate Blood Pressure Blood Pressure 135/89 [Left] O2 Sat by Pulse Oximetry - Labs 02/13/18 05:37 02/13/18 05:37
[2018-02-14] MEDS ORDERED: PEPCID PO SCH (22:00)
== END 2018-02-14 12:45 | disposition home or self-care (01) | DRG 354 ==
LOC: ED 02:19 → 3A 14:12 → 3B-SURG 02-06 18:13
PROVIDERS: ADMIT Internal Medicine; ATTEND Internal Medicine
PROC: 0D9670Z Drainage of Stomach with Drainage Device, Via Natural or Artificial Opening (ICD-10-PCS; 2018-02-03)
PROC: 0WQF0ZZ Repair Abdominal Wall, Open Approach (ICD-10-PCS; principal; 2018-02-06)
DX: K43.6 Other and unspecified ventral hernia with obstruction, without gangrene (principal); E87.1 Hypo-osmolality and hyponatremia; E87.2 Acidosis; K56.600 Partial intestinal obstruction, unspecified as to cause; R73.9 Hyperglycemia, unspecified; E86.0 Dehydration; D72.829 Elevated white blood cell count, unspecified; Z90.49 Acquired absence of other specified parts of digestive tract; Z98.51 Tubal ligation status; Z90.710 Acquired absence of both cervix and uterus; Z82.49 Family history of ischemic heart disease and other diseases of the circulatory system; Z83.3 Family history of diabetes mellitus
CPT/HCPCS: 36415; 74018; 74022; 74177; 80048; 80053; 81001; 82140; 82150; 82962; 83036; 83690; 84703; 85007; 85025; 85027; 88302; 94760; 96361; 96374; 96375; 96376; C9113; J0330; J0690; J1170; J1644; J2270; J2405; J2543; J2704; J2710; J3010; J7030; Q0162; Q9967

== ENCOUNTER 2019-05-28 18:42 | Inpatient (IN) | payer OTHER ==
--- NOTE | 2019-05-28 18:57 | Emergency Department Report ---
ED Neuro Deficit HPI - General Chief Complaint: Neuro Symptoms/Deficit Stated Complaint: NEURO ISSUES Time Seen by Provider: 05/28/19 18:54 Source: EMS Mode of arrival: Stretcher Limitations: Altered Mental Status - History of Present Illness Initial Comments: Patient is a 43-year-old female that presents with complaints of right-sided numbness and weakness and facial numbness and slurred speech. Patient states she might have been having allergic reaction because she ate nuts. Patient was given Benadryl. Patient states her symptoms are starting to improve. Last known well time 1800 -: Sudden Location: speech, right face, right arm, right leg Presenting Symptoms: Present: Weak/Paralyzed One Side, Blurred/Loss of Vision, Facial Droop/Numbness, Unable to Speak Clearly History of same: No Place: home Severity: severe Quality: weak, improving Improves With: time, rest, medication On Anticoagulants: No Context: sudden onset Associated Symptoms: weakness. denies: confusion, chest pain, cough, diaphoresis, fever/chills, headaches, loss of appetite, nausea/vomiting, v ertigo, seizures, shortness of breath, syncope - Related Data Home Medications: Previous Rx's Medication Instructions Recorded Last Taken Type HYDROcodone/APAP 5-325 [[place] 1 each PO Q6HR PRN #12 tablet 02/14/18 Unknown Rx 5/325] Allergies/Adverse Reactions: Allergies Allergy/AdvReac Type Severity Reaction Status Date / Time tree nut AdvReac Rash Verified 02/06/18 16:49 wheat AdvReac Rash Verified 02/06/18 16:49 ED Review of Systems ROS: Stated complaint: NEURO ISSUES Other details as noted in HPI Constitutional: weakness. denies: chills, fever Eyes: denies: eye pain, eye discharge, vision change ENT: denies: ear pain, throat pain Respiratory: denies: cough, shortness of breath, wheezing Cardiovascular: denies: chest pain, palpitations Endocrine: no symptoms reported Gastrointestinal: denies: abdominal pain, nausea, diarrhea Genitourinary: denies: urgency, dysuria, discharge Musculoskeletal: denies: back pain, joint swelling, arthralgia Skin: denies: rash, lesions Neurological: weakness. denies: headache, paresthesias Psychiatric: denies: anxiety, depression Hematological/Lymphatic: denies: easy bleeding, easy bruising ED Past Medical Hx - Past Medical History Previous Medical History?: Yes Hx Hypertension: No Hx Congestive Heart Failure: No Hx Diabetes: No Hx Asthma: No Hx COPD: No Hx HIV: No - Surgical History Past Surgical History?: No Hx Cholecystectomy: Yes Additional Surgical History: Tubal Ligation and Partial Hysterectomy - Family History Family history: no significant - Social History Smoking Status: Never Smoker Substance Use Type: None - Medications Home Medications: Home Medications Medication Instructions Recorded Confirmed Last Taken Type HYDROcodone/APAP 5-325 [[place] 1 each PO Q6HR PRN #12 tablet 02/14/18 Unknown Rx 5/325] ED Neuro Physical Exam - General Limitations: No Limitations, Altered Mental Status General appearance: alert, in no apparent distress Suspected Stroke: No - Head Head exam: Present: atraumatic, normocephalic - Eye Eye exam: Present: normal appearance - ENT ENT exam: Present: mucous membranes moist - Neck Neck exam: Present: normal inspection - Respiratory Respiratory exam: Present: normal lung sounds bilaterally. Absent: respiratory distress - Cardiovascular Cardiovascular Exam: Present: regular rate, normal rhythm. Absent: systolic murmur, diastolic murmur, rubs, gallop - GI/Abdominal GI/Abdominal exam: Present: soft, normal bowel sounds - Extremities Exam Extremities exam: Present: normal inspection - Back Exam Back exam: Present: normal inspection - Neurological Exam Neurological exam: Present: alert, oriented X3 - NIHSS Assessment Interval: Baseline 1a. Level of Consciousness: alert/keenly responsive 1b. LOC Questions: answers both correctly 1c. LOC Commands: performs tasks correctly 2. Best Gaze: normal 3. Visual: no visual loss 4. Facial Palsy: minor paralysis 5b. Motor Arm Right: no drift 5a. Motor Arm Left: no drift 6a. Motor Leg Left: no drift 6b. Motor Leg Right: no drift 7. Limb Ataxia: absent 8. Sensory: normal 9. Best Language: no aphasia 10. Dysarthria: normal 11. Extinction/Inattention: no abnormality Total Score: 1 Stroke Severity: Minor Stroke - Psychiatric Psychiatric exam: Present: normal affect, normal mood - Skin Skin exam: Present: warm, dry, intact, normal color. Absent: rash ED Course Vital Signs 05/28/19 05/28/19 05/28/19 18:48 20:00 23:51 Temperature 97.6 F Pulse Rate 64 63 66 Respiratory 12 12 12 Rate Blood Pressure 109/67 105/70 97/62 [Left] O2 Sat by Pulse 98 98 100 Oximetry 05/29/19 00:41 Temperature Pulse Rate 58 L Respiratory 12 Rate Blood Pressure 113/64 [Left] O2 Sat by Pulse 100 Oximetry - Reevaluation(s) Reevaluation #1: Initial evaluation done. The patient was seen by the neurologist via monitor. Patient sent to CT. Patient's CT head negative. 05/28/19 18:59 Reevaluation #2: Patient states her symptoms have completely resolved and resolved approximately 15 minutes ago. 05/28/19 19:59 Reevaluation #3: I discussed all results with patient. I discussed plan of care with patient. Patient agrees with plan of care and admission. Patient will be admitted to the hospital service. 05/29/19 01:01 - Consultations Consultation #1: I discussed case with neurologist. Neurologist does not recommend any further imaging but recommends admission for an MRI. 05/28/19 19:20 After the neurologist's note, the neurologist recommended CTA of the head and neck. 05/28/19 20:40 Consultation #2: Hospitalist consult for admission. Hospitalist to admit patient 05/29/19 01:00 - Lab Data Result diagrams: 05/28/19 19:07 05/28/19 19:07 Lab Results 05/28/19 05/28/19 05/28/19 Range/Units 19:07 19:07 19:46 WBC 5.0 (4.5-11.0) K/mm3 RBC 4.83 (3.65-5.03) M/mm3 Hgb 13.9 (10.1-14.3) gm/dl Hct 41.8 (30.3-42.9) % MCV 87 (79-97) fl MCH 29 (28-32) pg MCHC 33 (30-34) % RDW 13.8 (13.2-15.2) % Plt Count 271 (140-440) K/mm3 Lymph % (Auto) 32.1 (13.4-35.0) % [place] % (Auto) 9.3 H (0.0-7.3) % Eos % (Auto) 1.1 (0.0-4.3) % Baso % (Auto) 0.8 (0.0-1.8) % Lymph # 1.6 (1.2-5.4) K/mm3 [place] # 0.5 (0.0-0.8) K/mm3 Eos # 0.1 (0.0-0.4) K/mm3 Baso # 0.0 (0.0-0.1) K/mm3 Seg Neutrophils % 56.7 (40.0-70.0) % Seg Neutrophils # 2.8 (1.8-7.7) K/mm3 PT 13.1 (12.2-14.9) Sec. INR 1.02 (0.87-1.13) APTT 38.2 H (24.2-36.6) Sec. Thrombin Time (15.1-19.6) Sec. Sodium 138 (137-145) mmol/L Potassium 3.9 (3.6-5.0) mmol/L Chloride 102.1 (98-107) mmol/L Carbon Dioxide 22 (22-30) mmol/L Anion Gap 18 mmol/L BUN 16 (7-17) mg/dL Creatinine 0.7 (0.7-1.2) mg/dL Estimated GFR > 60 ml/min BUN/Creatinine Ratio 23 % Glucose 105 H (65-100) mg/dL Calcium 9.3 (8.4-10.2) mg/dL Troponin T < 0.010 (0.00-0.029) ng/mL 05/28/19 Range/Units 19:46 WBC (4.5-11.0) K/mm3 RBC (3.65-5.03) M/mm3 Hgb (10.1-14.3) gm/dl Hct (30.3-42.9) % MCV (79-97) fl MCH (28-32) pg MCHC (30-34) % RDW (13.2-15.2) % Plt Count (140-440) K/mm3 Lymph % (Auto) (13.4-35.0) % [place] % (Auto) (0.0-7.3) % Eos % (Auto) (0.0-4.3) % Baso % (Auto) (0.0-1.8) % Lymph # (1.2-5.4) K/mm3 [place] # (0.0-0.8) K/mm3 Eos # (0.0-0.4) K/mm3 Baso # (0.0-0.1) K/mm3 Seg Neutrophils % (40.0-70.0) % Seg Neutrophils # (1.8-7.7) K/mm3 PT (12.2-14.9) Sec. INR (0.87-1.13) APTT (24.2-36.6) Sec. Thrombin Time 17.4 (15.1-19.6) Sec. Sodium (137-145) mmol/L Potassium (3.6-5.0) mmol/L Chloride (98-107) mmol/L Carbon Dioxide (22-30) mmol/L Anion Gap mmol/L BUN (7-17) mg/dL Creatinine (0.7-1.2) mg/dL Estimated GFR ml/min BUN/Creatinine Ratio % Glucose (65-100) mg/dL Calcium (8.4-10.2) mg/dL Troponin T (0.00-0.029) ng/mL - EKG Data -: EKG Interpreted by Ar EKG shows normal: sinus rhythm, axis, intervals, QRS complexes, ST-T waves Rate: bradycardia - Radiology Data Radiology results: report reviewed CT angio head INDICATION / CLINICAL INFORMATION: 43 years Female; weakness. TECHNIQUE: Thin cut axial images obtained through the head during IV bolus contrast administration. Sagittal, coronal, and 3 plane MIP reconstructions performed by the technologist. NASCET type criteria used evaluate stenoses. Automated exposure control utilized for radiation reduction purposes. FINDINGS: No priors. No significant narrowing seen in the anterior and posterior circulation. Distal branches of the anterior, middle, and posterior cerebral arteries are fairly symmetric in appearance and number. No signs of aneurysm. IMPRESSION: No significant abnormality on this CTA of the head. CT angio neck INDICATION / CLINICAL INFORMATION: 43 years Female; weakness, . TECHNIQUE: Thin cut axial images obtained through the head during IV bolus contrast administration. Sagittal, coronal, and 3 plane MIP reconstructions performed by the technologist. NASCET type criteria used evaluate stenoses. All CT scans at this location are performed using CT dose reduction for ALARA by means of automated exposure control. COMPARISON: None available. FINDINGS: Normal aortic arch branching seen. The common and internal carotid arteries are widely patent. Codominant vertebral system is seen with no significant stenosis appreciated. There is disc space narrowing at C5-6. Mild disc disease seen at this level, as well as C6-7. No significant canal stenosis appreciated. Remainder of the surrounding soft tissues are grossly normal. IMPRESSION: No significant narrowing appreciated on this CTA of the neck. - Medical Decision Making Patient is a 43-year-old female that presents emergency room with complaints of right-sided facial droop, right-sided weakness, and slurred speech. Patient's symptoms improved after being given Benadryl. Patient seen by our neurologist and recommends admission for further stroke and TIA workup. Patient had a CT in the ER was negative. Patient also had a CTA of the head and neck were both n egative. Patient's labs unremarkable. Procedure is negative. Patient admitted to the hospitalist service for further evaluation and treatment - Differential Diagnosis CVA. TIA. Allergic reaction. Encephalopathy Critical Care Time: Yes Critical care attestation.: If time is entered above; I have spent that time in minutes in the direct care of this critically ill patient, excluding procedure time. Critical Care Time: 55 minutes ED Disposition Clinical Impression: Slurred speech, Right sided weakness, Facial droop Disposition: OP ADMIT IP TO THIS HOSP Is pt being admited?: Yes Does the pt Need Aspirin: No Condition: Critical Referrals: JAZMYN ROSS MD [Primary Care Provider] - 3-5 Days Time of Disposition: 00:58
--- NOTE | 2019-05-28 18:58 | Consultation ---
History of Present Illness Consult date: 05/28/19 History of present illness: [facility] Impression: Generalized weakness, blurry vision Not a tpa candidate due to:Less likely to be stroke. B/L symptoms. Started after eating cookies she might be allergic to. Symptoms not consistent with LVO therefore no LOUISE Comments: Last Known Well: 18:00 [facility] contacted: 18:37 [facility] at bedside: 18:42 NIHSS assessment time: Recommendations: CTA head and neck Supportive care If symptom do not resolved, can consider MRI brain. Discussed with ED MD Please call with questions CC: generalized weakness, passed out History of Present Illness: Patient is a 43 YO F with no significant PMH presented with generalized weakness, blurry vision. 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 After that she almost passed out around 18:00 and since then she has been having generalized weakness, blurry vision. She was given 50 mg of Benadryl for possible allergic reaction and now she is sleep. While reading the sentences on assessment, she was became drowsy and started slurring her words but when asked to wake up her speech improved. Diagnostic: CT Head: No acute Intracranial findings. Medical Decision Making: - Extensive number of diagnosis or management options are considered above. - Extensive amount of complex data reviewed. - High risk of complication and/or morbidity or mortality are associated with differential diagnostic considerations above. - There may be Uncertain outcome and increased probability of prolonged functional impairment or high probability of severe prolonged functional impairment associated with some of these differential diagnosis. Medical Data Reviewed: 1.Data reviewed include clinical labs, radiology, Medical Tests; 2.Tests results discussed w/performing or interpreting physician; 3.Obtaining/reviewing old medical records; 4.Obtaining case history from another source; 5.Independent review of image, tracing or specimen. Patient was informed the neurology consult would happen via telehealth consult by way of interactive audio and video telecommunications and consented to receiving care in this manner. Medications and Allergies Allergies Allergy/AdvReac Type Severity Reaction Status Date / Time tree nut AdvReac Rash Verified 02/06/18 16:49 wheat AdvReac Rash Verified 02/06/18 16:49 Home Medications Medication Instructions Recorded Confirmed Last Taken Type HYDROcodone/APAP 5-325 [[place] 1 each PO Q6HR PRN #12 tablet 02/14/18 Unknown Rx 5/325] - Level of Consciousness 1a. Level of Consciousness: alert/keenly responsive - LOC Questions 1b. LOC Questions: answers both correctly - LOC Command 1c. LOC Commands: performs tasks correctly - Best Gaze 2. Best Gaze: normal - Visual 3. Visual: no visual loss - Facial Palsy 4. Facial Palsy: normal symmetrical movement - Motor Arm 5a. Motor Arm Left: no drift 5b. Motor Arm Right: no drift - Motor Leg 6a. Motor Leg Left: no drift 6b. Motor Leg Right: no drift - Limb Ataxia 7. Limb Ataxia: absent - Sensory 8. Sensory: normal - Best Language 9. Best Language: no aphasia - Dysarthria 10. Dysarthria: mild/moderate dysarthria - Extinction and Inattention 11. Extinction/Inattention: no abnormality - Scoring Total Score: 1 Stroke Severity: Minor Stroke
[2019-05-28 19:24] LABS: Basophils % (Auto) 0.8 % (0.0-1.8); Eosinophils # (Auto) 0.1 K/mm3 (0.0-0.4); Eosinophils % (Auto) 1.1 % (0.0-4.3); Hematocrit 41.8 % (30.3-42.9); Hemoglobin 13.9 gm/dl (10.1-14.3); Lymphocytes # (Auto) 1.6 K/mm3 (1.2-5.4); Lymphocytes % (Auto) 32.1 % (13.4-35.0); Mean Corpuscular HGB Conc 33 % (30-34); Mean Corpuscular Volume 87 fl (79-97); Monocytes # (Auto) 0.5 K/mm3 (0.0-0.8); Monocytes % (Auto) 9.3 % (0.0-7.3); Platelet Count 271 K/mm3 (140-440); Red Blood Count 4.83 M/mm3 (3.65-5.03); Red Cell Distribution Width 13.8 % (13.2-15.2)
--- NOTE | 2019-05-28 19:33 | Cat Scan Report ---
CT head without contrast INDICATION : MAIN: CODE STROKE CALL [phone]. TECHNIQUE: Axial imaging performed from the skull apex through the skull base without the use of con trast. All CT scans at this location are performed using CT dose reduction for ALARA by means of aut omated exposure control. COMPARISON: None FINDINGS: Parenchyma: No acute intracranial hemorrhage or parenchymal abnormality. Ventricles: Ventricles are normal in size and appear symmetric. Soft tissues: Soft tissues including the orbits appear normal. Bones: No acute osseous abnormality. Sinuses: Sinuses and mastoid air cells are clear. IMPRESSION: No acute abnormality. Findings were called to Dr. Sebastian at 6:28 pm today.. Signer Name: Mello Ruby MD Signed: 05/28/2019 7:28 PM Workstation Name: [id number]
[2019-05-28 19:45] LABS: BUN/Creatinine Ratio 23; Blood Urea Nitrogen 16 mg/dL (7-17); Calcium 9.3 mg/dL (8.4-10.2); Hemolysis Index 18
[2019-05-28 20:16] LABS: INR 1.02 (0.87-1.13)
[2019-05-28 20:18] LABS: Partial Thromboplastin Time 38.2 Sec. (24.2-36.6)
--- NOTE | 2019-05-29 00:46 | Cat Scan Report ---
CT angio head INDICATION / CLINICAL INFORMATION: 43 years Female; weakness. TECHNIQUE: Thin cut axial images obtained through the head during IV bolus contrast administration. S agittal, coronal, and 3 plane MIP reconstructions performed by the technologist. NASCET type criteria used evaluate stenoses. Automated exposure control utilized for radiation reduction purposes. FINDINGS: No priors. No significant narrowing seen in the anterior and posterior circulation. Distal branches of the anterior, middle, and posterior cerebral arteries are fairly symmetric in appe arance and number. No signs of aneurysm. IMPRESSION: No significant abnormality on this CTA of the head. Signer Name: Adolfo Weeks MD, III Signed: 05/29/2019 12:42 AM Workstation Name: [id number]
--- NOTE | 2019-05-29 00:55 | Cat Scan Report ---
CT angio neck INDICATION / CLINICAL INFORMATION: 43 years Female; weakness, . TECHNIQUE: Thin cut axial images obtained through the head during IV bolus contrast administration. S agittal, coronal, and 3 plane MIP reconstructions performed by the technologist. NASCET type criteria used evaluate stenoses. All CT scans at this location are performed using CT dose reduction for ALAR A by means of automated exposure control. COMPARISON: None available. FINDINGS: Normal aortic arch branching seen. The common and internal carotid arteries are widely patent. Codominant vertebral system is seen with no significant stenosis appreciated. There is disc space narrowing at C5-6. Mild disc disease seen at this level, as well as C6-7. No sign ificant canal stenosis appreciated. Remainder of the surrounding soft tissues are grossly normal. IMPRESSION: No significant narrowing appreciated on this CTA of the neck. Signer Name: Adolfo Weeks MD, III Signed: 05/29/2019 12:50 AM Workstation Name: [email or web address] [email or web address] [id number]
[2019-05-29] MEDS ORDERED: SODIUM CHLORIDE FLUSH SYRINGE 10 ML IV PRN ×2 (01:41→03:16)
[2019-05-29] MEDS ORDERED: ZOFRAN IV PRN ×3 (01:41→04:30)
[2019-05-29] MEDS ORDERED: TYLENOL PO PRN ×3 (01:41→04:30)
--- NOTE | 2019-05-29 02:00 | History and Physical Report ---
<DANNI KLINE - Last Filed: 05/29/19 04:50> History of Present Illness Date of examination: 05/29/19 Date of admission: 05/29/2019 Chief complaint: TIA History of present illness: Patient is a 43-year-old female with no prior medical problem except for allergies who presents to the ER with complaints of right-sided numbness and weakness and facial numbness and slurred speech. Patient states she might have been having allergic reaction because she ate nuts. Patient was given Benadryl. Patient states her symptoms are starting to improve. After pt received Benadryl in the ER she became very lethargic and somnolent, she is unable to provide any medical history. In the ER, pt had a CT scan of the brain was negative, pt is admitted for further evaluation and treatment. Past History Past Medical History: other (allergies) Past Surgical History: hysterectomy, Other (tubal ligation) Social history: no significant social history Family history: no significant family history Medications and Allergies Allergies Allergy/AdvReac Type Severity Reaction Status Date / Time tree nut AdvReac Rash Verified 02/06/18 16:49 wheat AdvReac Rash Verified 02/06/18 16:49 Home Medications Medication Instructions Recorded Confirmed Last Taken Type No Known Home Medications [No 05/29/19 05/29/19 Unknown History Reported Home Medications] Active Meds: Active Medications Acetaminophen (Tylenol) 650 mg PO Q4H PRN PRN Reason: Pain MILD(1-3)/Fever >100.5/ESPINO Ondansetron HCl (Zofran) 4 mg IV Q8H PRN PRN Reason: Nausea And Vomiting Sodium Chloride (Sodium Chloride Flush Syringe 10 Ml) 10 ml IV BID MELODY Sodium Chloride (Sodium Chloride Flush Syringe 10 Ml) 10 ml IV PRN PRN PRN Reason: LINE FLUSH Review of Systems ROS unobtainable: due to mental status (Somnolent, liyhargic) Exam - Constitutional Vitals: Temp Pulse Resp BP Pulse Ox 97.6 F 58 L 16 113/64 100 05/28/19 18:48 05/29/19 00:41 05/29/19 00:41 05/29/19 00:41 05/29/19 00:41 General appearance: Present: no acute distress - EENT Eyes: Present: EOM intact ENT: hearing intact, clear oral mucosa - Neck Neck: Present: supple - Respiratory Respiratory effort: normal Respiratory: bilateral: CTA - Cardiovascular Rhythm: regular Heart Sounds: Present: S1 & S2 - Extremities Extremities: no ischemia, No edema Peripheral Pulses: within normal limits - Abdominal General gastrointestinal: Present: deferred Female genitourinary: Present: deferred - Rectal Rectal Exam: deferred - Integumentary Integumentary: Present: warm, dry - Musculoskeletal Musculoskeletal: strength equal bilaterally - Psychiatric Psychiatric: appropriate mood/affect - Neurologic Neurologic: moves all extremities Results - Labs CBC & Chem 7: 05/28/19 19:07 05/28/19 19:07 Labs: Laboratory Last Values WBC 5.0 K/mm3 (4.5-11.0) 05/28/19 19:07 RBC 4.83 M/mm3 (3.65-5.03) 05/28/19 19:07 Hgb 13.9 gm/dl (10.1-14.3) 05/28/19 19:07 Hct 41.8 % (30.3-42.9) 05/28/19 19:07 MCV 87 fl (79-97) 05/28/19 19:07 MCH 29 pg (28-32) 05/28/19 19:07 MCHC 33 % (30-34) 05/28/19 19:07 RDW 13.8 % (13.2-15.2) 05/28/19 19:07 Plt Count 271 K/mm3 (140-440) 05/28/19 19:07 Lymph % (Auto) 32.1 % (13.4-35.0) 05/28/19 19:07 [place] % (Auto) 9.3 % (0.0-7.3) H 05/28/19 19:07 Eos % (Auto) 1.1 % (0.0-4.3) 05/28/19 19:07 Baso % (Auto) 0.8 % (0.0-1.8) 05/28/19 19:07 Lymph # 1.6 K/mm3 (1.2-5.4) 05/28/19 19:07 [place] # 0.5 K/mm3 (0.0-0.8) 05/28/19 19:07 Eos # 0.1 K/mm3 (0.0-0.4) 05/28/19 19:07 Baso # 0.0 K/mm3 (0.0-0.1) 05/28/19 19:07 Seg Neutrophils % 56.7 % (40.0-70.0) 05/28/19 19:07 Seg Neutrophils # 2.8 K/mm3 (1.8-7.7) 05/28/19 19:07 PT 13.1 Sec. (12.2-14.9) 05/28/19 19:46 INR 1.02 (0.87-1.13) 05/28/19 19:46 APTT 38.2 Sec. (24.2-36.6) H 05/28/19 19:46 17.4 Sec. (15.1-19.6) 05/28/19 19:46 Sodium 138 mmol/L (137-145) 05/28/19 19:07 Potassium 3.9 mmol/L (3.6-5.0) 05/28/19 19:07 Chloride 102.1 mmol/L (98-107) 05/28/19 19:07 Carbon Dioxide 22 mmol/L (22-30) 05/28/19 19:07 18 mmol/L 05/28/19 19:07 BUN 16 mg/dL (7-17) 05/28/19 19:07 0.7 mg/dL (0.7-1.2) 05/28/19 19:07 Estimated GFR > 60 ml/min 05/28/19 19:07 23 % 05/28/19 19:07 Glucose 105 mg/dL (65-100) H 05/28/19 19:07 Calcium 9.3 mg/dL (8.4-10.2) 05/28/19 19:07 < 0.010 ng/mL (0.00-0.029) 05/28/19 19:07 Assessment and Plan Assessment and plan: 1. TIA r/o CVA 2. Possible allergic reaction 3. H/o food allergies [facility] for [facility] Continue neuro status q4hr MRI of the brain Carotid doppler study 2D Ecocardiogram Keep NPO until beside swallow study IVF for hydration DVT prophylaxis with SD Advance Directives: Yes VTE prophylaxis?: Mechanical Plan of care discussed with patient/family: Yes <ETELVINA SPARKS - Last Filed: 05/29/19 06:25> History of Present Illness Date of admission: 05/29/19 01:42 Medications and Allergies Active Meds: Active Medications Acetaminophen (Tylenol) 650 mg PO Q4H PRN PRN Reason: Pain MILD(1-3)/Fever >100.5/ESPINO Aspirin (Aspirin) 325 mg PO QDAY MELODY Atorvastatin Calcium (Lipitor) 40 mg PO QHS MELODY Bisacodyl (Dulcolax) 10 mg ME QDAY PRN PRN Reason: Constipation Sodium Chloride (Nacl 0.9% 1000 Ml) 1,000 mls @ 75 mls/hr IV DIRECT MELODY Magnesium Hydroxide (Milk Of Magnesia) 30 ml PO Q4H PRN PRN Reason: Constipation Metoclopramide HCl (Reglan) 10 mg PO Q6H PRN PRN Reason: Nausea And Vomiting Ondansetron HCl (Zofran) 4 mg IV Q8H PRN PRN Reason: Nausea And Vomiting Promethazine HCl (Phenergan) 25 mg ME Q6H PRN PRN Reason: Nausea And Vomiting Sodium Chloride (Sodium Chloride Flush Syringe 10 Ml) 10 ml IV BID MELODY Sodium Chloride (Sodium Chloride Flush Syringe 10 Ml) 10 ml IV PRN PRN PRN Reason: LINE FLUSH Exam - Constitutional Vitals: Temp Pulse Resp BP Pulse Ox 97.6 F 51 L 18 113/65 100 05/29/19 05:15 05/29/19 05:45 05/29/19 05:45 05/29/19 05:15 05/29/19 05:45 Results - Labs CBC & Chem 7: 05/28/19 19:07 05/28/19 19:07 Labs: Laboratory Last Values WBC 5.0 K/mm3 (4.5-11.0) 05/28/19 19:07 RBC 4.83 M/mm3 (3.65-5.03) 05/28/19 19:07 Hgb 13.9 gm/dl (10.1-14.3) 05/28/19 19:07 Hct 41.8 % (30.3-42.9) 05/28/19 19:07 MCV 87 fl (79-97) 05/28/19 19:07 MCH 29 pg (28-32) 05/28/19 19:07 MCHC 33 % (30-34) 05/28/19 19:07 RDW 13.8 % (13.2-15.2) 05/28/19 19:07 Plt Count 271 K/mm3 (140-440) 05/28/19 19:07 Lymph % (Auto) 32.1 % (13.4-35.0) 05/28/19 19:07 [place] % (Auto) 9.3 % (0.0-7.3) H 05/28/19 19:07 Eos % (Auto) 1.1 % (0.0-4.3) 05/28/19 19:07 Baso % (Auto) 0.8 % (0.0-1.8) 05/28/19 19:07 Lymph # 1.6 K/mm3 (1.2-5.4) 05/28/19 19:07 [place] # 0.5 K/mm3 (0.0-0.8) 05/28/19 19:07 Eos # 0.1 K/mm3 (0.0-0.4) 05/28/19 19:07 Baso # 0.0 K/mm3 (0.0-0.1) 05/28/19 19:07 Seg Neutrophils % 56.7 % (40.0-70.0) 05/28/19 19:07 Seg Neutrophils # 2.8 K/mm3 (1.8-7.7) 05/28/19 19:07 PT 13.1 Sec. (12.2-14.9) 05/28/19 19:46 INR 1.02 (0.87-1.13) 05/28/19 19:46 APTT 38.2 Sec. (24.2-36.6) H 05/28/19 19:46 17.4 Sec. (15.1-19.6) 05/28/19 19:46 Sodium 138 mmol/L (137-145) 05/28/19 19:07 Potassium 3.9 mmol/L (3.6-5.0) 05/28/19 19:07 Chloride 102.1 mmol/L (98-107) 05/28/19 19:07 Carbon Dioxide 22 mmol/L (22-30) 05/28/19 19:07 18 mmol/L 05/28/19 19:07 BUN 16 mg/dL (7-17) 05/28/19 19:07 0.7 mg/dL (0.7-1.2) 05/28/19 19:07 Estimated GFR > 60 ml/min 05/28/19 19:07 23 % 05/28/19 19:07 Glucose 105 mg/dL (65-100) H 05/28/19 19:07 Calcium 9.3 mg/dL (8.4-10.2) 05/28/19 19:07 < 0.010 ng/mL (0.00-0.029) 05/28/19 19:07 Assessment and Plan Assessment and plan: I personally discussed the patient with the Eddie ZHANG Hurline. I agree with the above assessment and plan.
[2019-05-29] MEDS ORDERED: MILK OF MAGNESIA PO PRN ×2 (04:08→04:30)
[2019-05-29] MEDS ORDERED: SODIUM CHLORIDE FLUSH SYRINGE 10 ML INJ PRN (04:30)
[2019-05-29] MEDS ORDERED: DULCOLAX PR PRN (04:30)
[2019-05-29] MEDS ORDERED: PHENERGAN PR PRN (04:30)
[2019-05-29] MEDS ORDERED: REGLAN PO PRN (04:30)
[2019-05-29] MEDS ORDERED: NACL 0.9% 1000 ML 1,000 ML IV SCH (05:00)
[2019-05-29] MEDS ORDERED: SODIUM CHLORIDE FLUSH SYRINGE 10 ML IV SCH ×2 (10:00)
[2019-05-29] MEDS ORDERED: ASPIRIN PO SCH (10:00)
[2019-05-29 12:48] VITALS: BP 117/75
--- NOTE | 2019-05-29 16:01 | Discharge Summary ---
Providers - Providers Date of Admission: 05/29/19 01:42 Date of discharge: 05/29/19 Attending physician: SUSAN VALDEZ 05/29/19 04:08 Consult to Dietitian/Nutrition [CONS] Routine Physician Instructions: Reason For Exam: Reason for Consult: Nutrition Recommendations Reason for Consult: Diet education Occupational Therapy Evaluate and Treat [CONS] Routine Comment: Reason For Exam: Neuro deficits Physical Therapy Evaluation and Treat [CONS] Routine Comment: Reason For Exam: Neuro deficits 05/29/19 04:09 Consult to Case Management [CONS] Routine Services Needed at Discharge: Other Home Health Services Notified:: home health care case manager 05/29/19 04:30 Occupational Therapy Evaluate and Treat [CONS] Routine Comment: Reason For Exam: Neuro deficits Physical Therapy Evaluation and Treat [CONS] Routine Comment: Reason For Exam: Neuro deficits 05/29/19 11:56 Consult to Physician [CONS] Routine Comment: Consulting Provider: INGRIS DAWSON Physician Instructions: Reason For Exam: TIA [facility] Condition: Critical Pertinent studies: Head CT Head and neck CVA 2D echocardiogram Hospital course: Patient is a 43-year-old female with no prior medical problem except for allergies to nuts who presents to the ER with complaints of generalized numbness and weakness, facial numbness and slurred speech. Patient states that she ate a cookie last night at her friend's place and she might have been having allergic reaction from that because that cookie contains nuts which she did not know. EMS was called and patient brought to the ER. Patient was given Benadryl in the ER and her symptoms were starting to improve and now complicated the results. After pt received Benadryl in the ER she became very lethargic and somnolent briefly but today she is alert awake and oriented 3, able to provide detailed medical history. In the ER, pt had a CT scan of the brain was negative, pt is admitted for further evaluation and treatment. Patient remained clinically stable and wanted to go home and to further follow up outpatient with her PCP. Patient was tolerating diet had no focal deficits. She was then discharged home in stable condition. Discharge diagnoses: 1. TIA vs CVA -ruled out 2. Possible allergic reaction from nut - symptom resolved after Benadryl 3. H/o food allergies Disposition: - TO HOME OR SELFCARE Time spent for discharge: 34 minutes Core Measure Documentation - Palliative Care Palliative Care/ Comfort Measures: Not Applicable - Core Measures Any of the following diagnoses?: none Exam - Constitutional Vitals: Temp Pulse Resp BP Pulse Ox 98.1 F 69 18 117/75 100 05/29/19 12:46 05/29/19 12:46 05/29/19 12:46 05/29/19 12:46 05/29/19 12:46 General appearance: Present: no acute distress, well-nourished - EENT Eyes: Present: PERRL ENT: hearing intact, clear oral mucosa - Neck Neck: Present: supple, normal ROM - Respiratory Respiratory effort: normal Respiratory: bilateral: CTA - Cardiovascular Heart Sounds: Present: S1 & S2. Absent: rub, click - Extremities Extremities: pulses symmetrical, No edema Peripheral Pulses: within normal limits - Abdominal General gastrointestinal: Present: soft, non-tender, non-distended, normal bowel sounds - Integumentary Integumentary: Present: clear, warm, dry - Musculoskeletal Musculoskeletal: gait normal, strength equal bilaterally - Psychiatric Psychiatric: appropriate mood/affect, intact judgment & insight - Neurologic Neurologic: CNII-XII intact, moves all extremities Plan Activity: advance as tolerated Weight Bearing Status: Weight Bear as Tolerated Diet: low fat, low salt Follow up with: JAZMYN ROSS MD [Primary Care Provider] - 3-5 Days
== END 2019-05-29 18:31 | disposition home or self-care (01) | DRG 923 ==
LOC: ED 18:42 → 4A 05-29 01:42
PROVIDERS: ADMIT Internal Medicine; ATTEND Internal Medicine
DX: T78.1XXA Other adverse food reactions, not elsewhere classified, initial encounter (principal); X58.XXXA Exposure to other specified factors, initial encounter; R29.810 Facial weakness; R47.81 Slurred speech; Z98.51 Tubal ligation status; Z90.711 Acquired absence of uterus with remaining cervical stump; Z79.899 Other long term (current) drug therapy
CPT/HCPCS: 36415; 70450; 70496; 70498; 80048; 84484; 85025; 85610; 85670; 85730; 93005; 93010; 93306; G0378; Q9967